=== PATIENT | female | born 1970 | race Caucasian/White ===

== ENCOUNTER 2020-03-08 12:58 | Emergency (ER) | payer OTHER ==
[2020-03-08 13:05] VITALS: TEMP 97.8
[2020-03-08] MEDS ORDERED: ONDANSETRON 4 MG/2 ML VIAL IVP STA ×2 (13:41→15:12)
[2020-03-08] MEDS ORDERED: SODIUM CHLORIDE 0.9% 500 ML 500 ML IV STA (13:41)
[2020-03-08] MEDS ORDERED: SODIUM CHLORIDE 0.9% 1,000 ML IV STA (13:41)
--- NOTE | 2020-03-08 14:21 | ED ---
Abdominal Pain HPI - General Chief Complaint: Abdominal Pain Stated Complaint: abd pain, vomiting Time Seen by Provider: 03/08/20 13:16 Source: patient, RN notes reviewed Mode of arrival: ambulatory Limitations: no limitations - History of Present Illness Initial Comments: 49-year-old female presents emergency Department chief complaint abdominal pain started this morning. Patient states the pain does wax and wane she complains of diffuse abdominal pain with severe nausea vomiting. She states that she's had no bowel movements and diarrhea constipation or melena hematochezia and no dysuria no hematuria. She states she hasn't chills no known fever. Denies any chest pain or shortness breath. She's had prior abdominal hernia repair no other abdominal surgeries. Patient has a flank pain. Denies any trauma. No sick contacts. - Related Data Home Medications Medication Instructions Recorded Confirmed Albuterol Inhaler [Ventolin Hfa 1 - 2 puff INHALATION RT-Q4H PRN 03/08/20 03/08/20 Inhaler] Losartan/Hydrochlorothiazide 1 tab PO DAILY 03/08/20 03/08/20 [Losartan-Hctz 100-25 mg Tab] Metoprolol Tartrate [Lopressor] 25 mg PO DAILY 03/08/20 03/08/20 Previous Rx's Medication Instructions Recorded Amoxicillin/Potassium Clav 1 tab PO Q12HR #20 tab 03/08/20 [Augmentin 875-125 Tablet] Docusate [Colace] 100 mg PO BID #14 capsule 03/08/20 Ondansetron Odt [Zofran Odt] 4 mg PO Q8HR PRN #10 tab 03/08/20 Allergies Allergy/AdvReac Type Severity Reaction Status Date / Time bacitracin AdvReac Unknown Verified 03/08/20 15:05 [From Triple Antibiotic] neomycin AdvReac Unknown Verified 03/08/20 15:05 [From Triple Antibiotic] polymyxin B AdvReac Unknown Verified 03/08/20 15:05 [From Triple Antibiotic] sulfamethoxazole AdvReac Nausea & Verified 03/08/20 15:05 [From Bactrim] Vomiting trimethoprim [From Bactrim] AdvReac Nausea & Verified 03/08/20 15:05 Vomiting Review of Systems ROS Statement: Those systems with pertinent positive or pertinent negative responses have been documented in the HPI. ROS Other: All systems not noted in ROS Statement are negative. Past Medical History Past Medical History: Hypertension History of Any Multi-Drug Resistant Organisms: None Reported Past Surgical History: Hernia Repair Past Psychological History: No Psychological Hx Reported Smoking Status: Current every day smoker Past Alcohol Use History: Occasional Past Drug Use History: None Reported General Exam Limitations: no limitations General appearance: alert, in no apparent distress Head exam: Present: atraumatic, normocephalic, normal inspection ENT exam: Present: normal exam, normal oropharynx, mucous membranes moist Neck exam: Present: normal inspection. Absent: tenderness, meningismus, lymphadenopathy Respiratory exam: Present: normal lung sounds bilaterally. Absent: respiratory distress, wheezes, rales, rhonchi, stridor Cardiovascular Exam: Present: normal rhythm, tachycardia, normal heart sounds. Absent: systolic murmur, diastolic murmur, rubs, gallop, clicks GI/Abdominal exam: Present: soft, tenderness, normal bowel sounds. Absent: distended, guarding, rebound, rigid Back exam: Absent: CVA tenderness (R), CVA tenderness (L) Neurological exam: Present: alert, oriented X3, CN II-XII intact Skin exam: Present: warm, dry, intact, normal color. Absent: rash Course Vital Signs 03/08/20 03/08/20 03/08/20 13:00 13:04 14:04 Temperature 97.8 F Pulse Rate 110 H 71 Respiratory 18 20 20 Rate Blood Pressure 156/78 153/103 O2 Sat by Pulse 98 98 Oximetry 03/08/20 03/08/20 15:00 16:00 Temperature Pulse Rate 71 69 Respiratory 20 20 Rate Blood Pressure 134/83 O2 Sat by Pulse 98 98 Oximetry Medical Decision Making - Medical Decision Making 49-year-old female presented for abdominal pain nausea vomiting. Labs are unremarkable urinalysis unremarkable. CT shows some evidence of colitis was started on Augmentin. Patient was started on stool softeners for constipation and she is advised that she needs to have a colonoscopy as she has some narrowing of her sigmoid colon. Patient and family in room understand. Return parameters were discussed. - Lab Data Result diagrams: 03/08/20 13:25 03/08/20 13:25 Lab Results 03/08/20 03/08/20 03/08/20 Range/Units 13:25 13:25 13:25 WBC 8.4 (3.8-10.6) k/uL RBC 3.98 (3.80-5.40) m/uL Hgb 14.0 (11.4-16.0) gm/dL Hct 41.9 (34.0-46.0) % MCV 105.4 H (80.0-100.0) fL MCH 35.2 H (25.0-35.0) pg MCHC 33.4 (31.0-37.0) g/dL RDW 12.4 (11.5-15.5) % Plt Count 274 (150-450) k/uL Neutrophils % 85 % Lymphocytes % 8 % Monocytes % 6 % Eosinophils % 1 % Basophils % 0 % Neutrophils # 7.1 (1.3-7.7) k/uL Lymphocytes # 0.6 L (1.0-4.8) k/uL Monocytes # 0.5 (0-1.0) k/uL Eosinophils # 0.1 (0-0.7) k/uL Basophils # 0.0 (0-0.2) k/uL Macrocytosis Slight Sodium 136 L (137-145) mmol/L Potassium 3.7 (3.5-5.1) mmol/L Chloride 97 L (98-107) mmol/L Carbon Dioxide 27 (22-30) mmol/L Anion Gap 12 mmol/L BUN 16 (7-17) mg/dL Creatinine 0.67 (0.52-1.04) mg/dL Est GFR (CKD-EPI)AfAm >90 (>60 ml/min/1.73 sqM) Est GFR (CKD-EPI)NonAf >90 (>60 ml/min/1.73 sqM) Glucose 113 H (74-99) mg/dL Plasma Lactic Acid Evens (0.7-2.0) mmol/L Calcium 9.9 (8.4-10.2) mg/dL Total Bilirubin 1.0 (0.2-1.3) mg/dL AST 84 H (14-36) U/L ALT 52 H (4-34) U/L Alkaline Phosphatase 80 (38-126) U/L Total Protein 8.4 H (6.3-8.2) g/dL Albumin 4.8 (3.5-5.0) g/dL Amylase 69 (30-110) U/L Lipase 73 (23-300) U/L Urine Color Yellow Urine Appearance Cloudy H (Clear) Urine pH 5.0 (5.0-8.0) Ur Specific [place] 1.012 (1.001-1.035) Urine Protein Negative (Negative) Urine Glucose (UA) Negative (Negative) Urine Ketones 1+ H (Negative) Urine Blood Negative (Negative) Urine Nitrite Negative (Negative) Urine Bilirubin Negative (Negative) Urine Urobilinogen <2.0 (<2.0) mg/dL Ur Leukocyte Esterase Negative (Negative) Urine RBC <1 (0-5) /hpf Urine WBC 1 (0-5) /hpf Ur Squamous Epith Cells 3 (0-4) /hpf Urine Bacteria Rare H (None) /hpf Hyaline Casts 19 H (0-2) /lpf Urine Mucus Rare H (None) /hpf 03/08/20 Range/Units 13:25 WBC (3.8-10.6) k/uL RBC (3.80-5.40) m/uL Hgb (11.4-16.0) gm/dL Hct (34.0-46.0) % MCV (80.0-100.0) fL MCH (25.0-35.0) pg MCHC (31.0-37.0) g/dL RDW (11.5-15.5) % Plt Count (150-450) k/uL Neutrophils % % Lymphocytes % % Monocytes % % Eosinophils % % Basophils % % Neutrophils # (1.3-7.7) k/uL Lymphocytes # (1.0-4.8) k/uL Monocytes # (0-1.0) k/uL Eosinophils # (0-0.7) k/uL Basophils # (0-0.2) k/uL Macrocytosis Sodium (137-145) mmol/L Potassium (3.5-5.1) mmol/L Chloride (98-107) mmol/L Carbon Dioxide (22-30) mmol/L Anion Gap mmol/L BUN (7-17) mg/dL Creatinine (0.52-1.04) mg/dL Est GFR (CKD-EPI)AfAm (>60 ml/min/1.73 sqM) Est GFR (CKD-EPI)NonAf (>60 ml/min/1.73 sqM) Glucose (74-99) mg/dL Plasma Lactic Acid Evens 1.4 (0.7-2.0) mmol/L Calcium (8.4-10.2) mg/dL Total Bilirubin (0.2-1.3) mg/dL AST (14-36) U/L ALT (4-34) U/L Alkaline Phosphatase (38-126) U/L Total Protein (6.3-8.2) g/dL Albumin (3.5-5.0) g/dL Amylase (30-110) U/L Lipase (23-300) U/L Urine Color Urine Appearance (Clear) Urine pH (5.0-8.0) Ur Specific [place] (1.001-1.035) Urine Protein (Negative) Urine Glucose (UA) (Negative) Urine Ketones (Negative) Urine Blood (Negative) Urine Nitrite (Negative) Urine Bilirubin (Negative) Urine Urobilinogen (<2.0) mg/dL Ur Leukocyte Esterase (Negative) Urine RBC (0-5) /hpf Urine WBC (0-5) /hpf Ur Squamous Epith Cells (0-4) /hpf Urine Bacteria (None) /hpf Hyaline Casts (0-2) /lpf Urine Mucus (None) /hpf Disposition Clinical Impression: Colitis, Constipation Disposition: HOME SELF-CARE Condition: Stable Instructions (If sedation given, give patient instructions): Colitis (ED) Additional Instructions: Please follow-up for colonoscopy.Please return to the Emergency Department if symptoms worsen or any other concerns. Prescriptions: Amoxicillin/Potassium Clav [Augmentin 875-125 Tablet] 1 tab PO Q12HR #20 tab Docusate [Colace] 100 mg PO BID #14 capsule Ondansetron Odt [Zofran Odt] 4 mg PO Q8HR PRN #10 tab PRN Reason: Nausea Is patient prescribed a controlled substance at d/c from ED?: No Referrals: Mireille Chan DO [Primary Care Provider] - 1-2 days Jenny Yang MD [STAFF PHYSICIAN] - 1-2 days Jairon Alves MD [STAFF PHYSICIAN] - 1-2 days Time of Disposition: 16:22
--- NOTE | 2020-03-08 14:44 | CT ---
EXAMINATION TYPE: CT abdomen pelvis w con DATE OF EXAM: 03/08/2020 COMPARISON: None HISTORY: Generalized abdominal pain with cramping and nausea, vomiting. CT DLP: 819.8 mGycm Automated exposure control for dose reduction was used. TECHNIQUE: Helical acquisition of images from the lung bases through the pelvis have been completed. CONTRAST: Performed without Oral Contrast and with IV Contrast, patient injected with 100 mL of Isovue 300. FINDINGS: LUNG BASES: No significant abnormality is appreciated. AORTA: No significant abnormality is appreciated. LIVER/GB: The liver shows low attenuation consistent with hepatic gallbladder is normal.. PANCREAS: No significant abnormality is seen. SPLEEN: No significant abnormality is seen. ADRENALS: No significant abnormality is seen. KIDNEYS: No significant abnormality is seen. REPRODUCTIVE ORGANS: No significant abnormality is seen BOWEL: There is retained fecal debris throughout the distribution of the colon. Caliber change is pr esent along the sigmoid colon which is more narrow distal to this point, axial image #70, coronal geo ge #83. Scattered diverticular changes present associated with the colon. Suspect some colonic wall t hickening especially in the descending colon. FREE AIR: No Free Air visible. ASCITES: None visible. PELVIC ADENOPATHY: None visualized. RETROPERITONEAL ADENOPATHY: No Retroperitoneal Adenopathy visible. URINARY BLADDER: No significant abnormality is seen. OSSEOUS STRUCTURES: Degenerative disc changes are present in the visualized spine.. IMPRESSION: CORRELATE FOR COLITIS, THERE IS DIVERTICULOSIS, POSSIBLE FECAL STASIS, CALIBER CHANGE IN THE SIGMOID COLON IS INDETERMINATE, CONSIDER BOWEL SURVEILLANCE IF THIS HAS NOT BEEN PERFORMED. PROBABLE HEPATIC STEATOSIS. LIVER IS AT THE UPPER LIMIT OF NORMAL FOR SIZE.
[2020-03-08 15:01] VITALS: RESP 20
[2020-03-08 15:09] LABS: Basophils % (A) 0 %; Eosinophils # (A) 0.1 k/uL (0-0.7); Eosinophils % (A) 1 %; HCT 41.9 % (34.0-46.0); Lymphocytes # (A) 0.6 k/uL (1.0-4.8); Lymphocytes % (A) 8 %; MCH 35.2 pg (25.0-35.0); MCHC 33.4 g/dL (31.0-37.0); MCV 105.4 fL (80.0-100.0); Macrocytosis Slight; Mean Platelet Volume 8.1; Monocytes # (A) 0.5 k/uL (0-1.0); Monocytes % (A) 6 %; Neutrophils # (A) 7.1 k/uL (1.3-7.7); Neutrophils % (A) 85 %; Platelet Count 274 k/uL (150-450); RBC 3.98 m/uL (3.80-5.40); RDW 12.4 % (11.5-15.5); WBC 8.4 k/uL (3.8-10.6)
[2020-03-08] MEDS ORDERED: HYDROmorphone 0.5 MG/0.5 ML SYRINGE IVP STA (15:12)
[2020-03-08 15:14] LABS: Appearance,Urine Cloudy (Clear); Bacteria,Urine Rare /hpf; Bilirubin,Urine Negative (Negative); Blood,Urine Negative (Negative); Color,Urine Yellow; Glucose,Urine (UA) Negative (Negative); Hyaline Casts,Urine 19 /lpf (0-2); Ketones,Urine 1+ (Negative); Leukocyte Esterase,Urine Negative (Negative); Mucus,Urine Rare /hpf; Nitrite,Urine Negative (Negative); Protein,Urine Negative (Negative); RBC,Urine <1 /hpf (0-5); Specific Gravity,Urine 1.012 (1.001-1.035); Squamous Epithelial Cell,Urine 3 /hpf (0-4); Urobilinogen,Urine <2.0 mg/dL (<2.0); WBC,Urine 1 /hpf (0-5)
[2020-03-08] MEDS ORDERED: DOCUSATE 283 MG/5 ML ENEMA RECTAL STA (15:27)
[2020-03-08 15:38] LABS: ALT 52 U/L (4-34); AST 84 U/L (14-36); African American GFR (CKD) >90 (>60 ml/min/1.73 sqM); Albumin 4.8 g/dL (3.5-5.0); Alkaline Phosphatase 80 U/L (38-126); Amylase 69 U/L (30-110); Anion Gap 12 mmol/L; Blood Urea Nitrogen 16 mg/dL (7-17); Calcium 9.9 mg/dL (8.4-10.2); Carbon Dioxide 27 mmol/L (22-30); Chloride 97 mmol/L (98-107); Glucose 113 mg/dL (74-99); Non-African American GFR(CKD) >90 (>60 ml/min/1.73 sqM); Sodium 136 mmol/L (137-145); Total Protein 8.4 g/dL (6.3-8.2)
[2020-03-08 15:41] LABS: Potassium 3.7 mmol/L (3.5-5.1)
[2020-03-08 16:35] VITALS: BP 133/94; PULSE 73
== END 2020-03-08 16:38 | disposition home or self-care (01) ==
LOC: EC 12:58
DX: K52.9 Noninfective gastroenteritis and colitis, unspecified (principal); K59.00 Constipation, unspecified; I10 Essential (primary) hypertension; F17.200 Nicotine dependence, unspecified, uncomplicated; Z79.899 Other long term (current) drug therapy; Z88.1 Allergy status to other antibiotic agents; Z88.2 Allergy status to sulfonamides
CPT/HCPCS: 36415; 80053; 82150; 83605; 83690; 85025; 81001; 74177; 99284; 96374; 96375; 96376; 96361; J2405; J1170; Q9967

== ENCOUNTER 2020-03-09 15:15 | Inpatient (IN) | payer OTHER ==
[2020-03-09] MEDS ORDERED: HYDROmorphone 0.5 MG/0.5 ML SYRINGE IVP STA ×2 (15:40→17:20)
[2020-03-09] MEDS ORDERED: SODIUM CHLORIDE 0.9% 1,000 ML IV STA ×2 (15:40→20:16)
[2020-03-09] MEDS ORDERED: PANTOPRAZOLE 40 MG/10 ML VIAL IVP STA (15:40)
[2020-03-09] MEDS ORDERED: DICYCLOMINE 10 MG/ML 2 ML AMP IM STA (15:40)
[2020-03-09] MEDS ORDERED: ONDANSETRON 4 MG/2 ML VIAL IVP STA (15:40)
[2020-03-09] MEDS ORDERED: LACTULOSE 20 GM/30 ML CUP PO ONE (15:52)
--- NOTE | 2020-03-09 15:52 | ED ---
Abdominal Pain HPI - General Source: patient Mode of arrival: wheelchair Limitations: no limitations <Tony Hernandez - Last Filed: 03/09/20 20:40> <Yeimi Oneal - Last Filed: 03/15/20 01:24> - General Chief Complaint: Abdominal Pain Stated Complaint: Abd pain Time Seen by Provider: 03/09/20 15:19 - History of Present Illness Initial Comments: Patient is a 49-year-old female presenting to the emergency department with a chief complaint of abdominal pain. Patient states she was in emergency department yesterday and diagnosed with colitis and constipation. Patient reports she was discharged but continued to have nausea, vomiting. States she had a very small bowel movement yesterday but nothing today. States she feels constipated and slightly bloated. Reports diffuse abdominal pain, mostly localized near the umbilical region. Patient denies any night sweats fevers or chills. States she does have history of constipation and uses stool softeners intermittently. She denies chest pain or shortness of breath. She denies vaginal or urinary symptoms. Denies hematuria, hematochezia or melena. (Tony Hernandez) - Related Data Home Medications Medication Instructions Recorded Confirmed Albuterol Inhaler [Ventolin Hfa 1 - 2 puff INHALATION RT-Q4H PRN 03/08/20 03/09/20 Inhaler] Losartan/Hydrochlorothiazide 1 tab PO DAILY 03/08/20 03/09/20 [Losartan-Hctz 100-25 mg Tab] Metoprolol Tartrate [Lopressor] 25 mg PO DAILY 03/08/20 03/09/20 Previous Rx's Medication Instructions Recorded Amoxicillin/Potassium Clav 1 tab PO Q12HR #20 tab 03/08/20 [Augmentin 875-125 Tablet] Docusate [Colace] 100 mg PO BID #14 capsule 03/08/20 Ondansetron Odt [Zofran Odt] 4 mg PO Q8HR PRN #10 tab 03/08/20 Allergies Allergy/AdvReac Type Severity Reaction Status Date / Time bacitracin AdvReac Unknown Verified 03/09/20 19:12 [From Triple Antibiotic] neomycin AdvReac Unknown Verified 03/09/20 19:12 [From Triple Antibiotic] polymyxin B AdvReac Unknown Verified 03/09/20 19:12 [From Triple Antibiotic] sulfamethoxazole AdvReac Nausea & Verified 03/09/20 19:12 [From Bactrim] Vomiting trimethoprim [From Bactrim] AdvReac Nausea & Verified 03/09/20 19:12 Vomiting Review of Systems ROS Other: All systems not noted in ROS Statement are negative. <Tony Hernandez - Last Filed: 03/09/20 20:40> ROS Other: All systems not noted in ROS Statement are negative. <Yeimi Oneal - Last Filed: 03/15/20 01:24> ROS Statement: Those systems with pertinent positive or pertinent negative responses have been documented in the HPI. Past Medical History Past Medical History: Hypertension History of Any Multi-Drug Resistant Organisms: None Reported Past Surgical History: Hernia Repair Past Psychological History: No Psychological Hx Reported Smoking Status: Current every day smoker Past Alcohol Use History: Occasional Past Drug Use History: None Reported <Tony Hernandez - Last Filed: 03/09/20 20:40> General Exam Limitations: no limitations General appearance: alert, in no apparent distress Head exam: Present: atraumatic, normocephalic, normal inspection Eye exam: Present: normal appearance, PERRL, EOMI Pupils: Present: normal accommodation ENT exam: Present: normal exam, normal oropharynx, mucous membranes moist Neck exam: Present: normal inspection, full ROM Respiratory exam: Present: normal lung sounds bilaterally. Absent: respiratory distress, wheezes Cardiovascular Exam: Present: regular rate, normal rhythm, normal heart sounds GI/Abdominal exam: Present: soft, tenderness (Diffuse abdominal tenderness). Absent: distended, guarding, rebound, rigid Extremities exam: Present: normal inspection, full ROM Back exam: Present: normal inspection, full ROM. Absent: tenderness, CVA tenderness (R), CVA tenderness (L) Neurological exam: Present: alert, oriented X3 Psychiatric exam: Present: normal affect, normal mood Skin exam: Present: warm, dry, intact, normal color <Tony Hernandez - Last Filed: 03/09/20 20:40> Course Vital Signs 03/09/20 03/09/20 15:16 20:11 Temperature 97.4 F L 98.4 F Pulse Rate 94 78 Respiratory 18 16 Rate Blood Pressure 143/101 150/92 O2 Sat by Pulse 97 95 Oximetry Medical Decision Making - Lab Data Result diagrams: 03/09/20 15:50 03/09/20 15:50 <Tony Hernandez - Last Filed: 03/09/20 20:40> - Lab Data Result diagrams: 03/13/20 06:04 03/14/20 05:36 <Yeimi Oneal - Last Filed: 03/15/20 01:24> - Medical Decision Making Patient is a 49-year-old female presenting to emergency Department with a chief complaint of nausea vomiting abdominal pain. On exam patient has diffuse abdominal pain. Negative McBurney and Rodriguez sign. Patient had received a CT of abdomen and pelvis yesterday that revealed colitis and and constipation. Patient was given lactulose and milk and molasses enema in the emergency department but patient is still not able to have a BM. Patient was given Dilaudid with some improvement in symptoms. Patient was given Zofran, fluids and antispasmodic medication. Reevaluation patient reports continuous vomiting. Patient was given Benadryl and Reglan. On reevaluation patient reports only small improvement in nausea. States the pain is returning. Patient was given a secondary dose of Dilaudid. CBC unremarkable. CMP shows elevated BUN and UA shows +1 ketones suggesting dehydration. Patient was given fluids in the ED.. Challenge failed. Patient will be admitted for further medical management. Case discussed with Admitting physician is Dr Everardo ROBERTS on consult (Tony Hernandez) I was available for consultation in the emergency department. The history and physical exam were done by the midlevel provider. I was consulted for this patients care. I reviewed the case with the midlevel provider and based on their presentation of the patient, I agree with the assessment, medical decision making and plan of care as documented. Chart was dictated using [employer] dictation software. Attempts were made to correct any dictation errors however some typographical errors may persist. Patient was seen during a national state of emergency due to the Covid-19 pandemic. (Yeimi Oneal) - Lab Data Lab Results 03/09/20 03/09/20 03/09/20 Range/Units 15:50 15:50 19:50 WBC 8.0 (3.8-10.6) k/uL RBC 3.95 (3.80-5.40) m/uL Hgb 14.5 (11.4-16.0) gm/dL Hct 41.7 (34.0-46.0) % MCV 105.6 H (80.0-100.0) fL MCH 36.8 H (25.0-35.0) pg MCHC 34.8 (31.0-37.0) g/dL RDW 12.4 (11.5-15.5) % Plt Count 259 (150-450) k/uL Neutrophils % (Manual) 81 % Band Neutrophils % 4 % Lymphocytes % (Manual) 2 % Monocytes % (Manual) 12 % Eosinophils % (Manual) 1 % Neutrophils # (Manual) (1.3-7.7) k/uL Lymphocytes # (Manual) (1.0-4.8) k/uL Monocytes # (Manual) (0-1.0) k/uL Eosinophils # (Manual) (0-0.7) k/uL Nucleated RBCs 0 (0-0) /100 WBC Manual Slide Review Macrocytosis Slight Stomatocytes Present Sodium 131 L (137-145) mmol/L Potassium 3.6 (3.5-5.1) mmol/L Chloride 91 L (98-107) mmol/L Carbon Dioxide 32 H (22-30) mmol/L Anion Gap 8 mmol/L BUN 23 H (7-17) mg/dL Creatinine 0.54 (0.52-1.04) mg/dL Est GFR (CKD-EPI)AfAm >90 (>60 ml/min/1.73 sqM) Est GFR (CKD-EPI)NonAf >90 (>60 ml/min/1.73 sqM) Glucose 163 H (74-99) mg/dL Calcium 9.5 (8.4-10.2) mg/dL Magnesium (1.6-2.3) mg/dL Total Bilirubin 1.0 (0.2-1.3) mg/dL AST 44 H (14-36) U/L ALT 35 H (4-34) U/L Alkaline Phosphatase 92 (38-126) U/L Total Protein 7.5 (6.3-8.2) g/dL Albumin 4.6 (3.5-5.0) g/dL Lipase 27 (23-300) U/L Urine Color Yellow Urine Appearance Cloudy H (Clear) Urine pH 6.0 (5.0-8.0) Ur Specific [place] 1.031 (1.001-1.035) Urine Protein 1+ H (Negative) Urine Glucose (UA) Negative (Negative) Urine Ketones 1+ H (Negative) Urine Blood Negative (Negative) Urine Nitrite Negative (Negative) Urine Bilirubin 1+ H (Negative) Urine Urobilinogen 4.0 (<2.0) mg/dL Ur Leukocyte Esterase Negative (Negative) Urine RBC <1 (0-5) /hpf Urine WBC 1 (0-5) /hpf Ur Squamous Epith Cells 10 H (0-4) /hpf Urine Bacteria Rare H (None) /hpf Urine Mucus Occasional H (None) /hpf Coronavirus (PCR) (Not Detected) 03/09/20 03/10/20 03/11/20 Range/Units 21:16 10:04 05:29 WBC 4.8 (3.8-10.6) k/uL RBC 3.28 L (3.80-5.40) m/uL Hgb 12.2 (11.4-16.0) gm/dL Hct 35.9 (34.0-46.0) % MCV 109.4 H (80.0-100.0) fL MCH 37.3 H (25.0-35.0) pg MCHC 34.1 (31.0-37.0) g/dL RDW 12.4 (11.5-15.5) % Plt Count 184 (150-450) k/uL Neutrophils % (Manual) 45 % Band Neutrophils % 26 % Lymphocytes % (Manual) 13 % Monocytes % (Manual) 15 % Eosinophils % (Manual) 1 % Neutrophils # (Manual) 3.40 (1.3-7.7) k/uL Lymphocytes # (Manual) 0.62 L (1.0-4.8) k/uL Monocytes # (Manual) 0.72 (0-1.0) k/uL Eosinophils # (Manual) 0.05 (0-0.7) k/uL Nucleated RBCs 0 (0-0) /100 WBC Manual Slide Review Performed Macrocytosis Moderate Stomatocytes Sodium 132 L (137-145) mmol/L Potassium 3.8 (3.5-5.1) mmol/L Chloride 96 L (98-107) mmol/L Carbon Dioxide 32 H (22-30) mmol/L Anion Gap 4 mmol/L BUN 17 (7-17) mg/dL Creatinine 0.55 (0.52-1.04) mg/dL Est GFR (CKD-EPI)AfAm >90 (>60 ml/min/1.73 sqM) Est GFR (CKD-EPI)NonAf >90 (>60 ml/min/1.73 sqM) Glucose 113 H (74-99) mg/dL Calcium 8.2 L (8.4-10.2) mg/dL Magnesium (1.6-2.3) mg/dL Total Bilirubin 0.7 (0.2-1.3) mg/dL AST 29 (14-36) U/L ALT 23 (4-34) U/L Alkaline Phosphatase 66 (38-126) U/L Total Protein 5.8 L (6.3-8.2) g/dL Albumin 3.3 L (3.5-5.0) g/dL Lipase (23-300) U/L Urine Color Urine Appearance (Clear) Urine pH (5.0-8.0) Ur Specific [place] (1.001-1.035) Urine Protein (Negative) Urine Glucose (UA) (Negative) Urine Ketones (Negative) Urine Blood (Negative) Urine Nitrite (Negative) Urine Bilirubin (Negative) Urine Urobilinogen (<2.0) mg/dL Ur Leukocyte Esterase (Negative) Urine RBC (0-5) /hpf Urine WBC (0-5) /hpf Ur Squamous Epith Cells (0-4) /hpf Urine Bacteria (None) /hpf Urine Mucus (None) /hpf Coronavirus (PCR) Not Detected (Not Detected) 03/11/20 03/11/20 Range/Units 05:29 05:29 WBC (3.8-10.6) k/uL RBC (3.80-5.40) m/uL Hgb (11.4-16.0) gm/dL Hct (34.0-46.0) % MCV (80.0-100.0) fL MCH (25.0-35.0) pg MCHC (31.0-37.0) g/dL RDW (11.5-15.5) % Plt Count (150-450) k/uL Neutrophils % (Manual) % Band Neutrophils % % Lymphocytes % (Manual) % Monocytes % (Manual) % Eosinophils % (Manual) % Neutrophils # (Manual) (1.3-7.7) k/uL Lymphocytes # (Manual) (1.0-4.8) k/uL Monocytes # (Manual) (0-1.0) k/uL Eosinophils # (Manual) (0-0.7) k/uL Nucleated RBCs (0-0) /100 WBC Manual Slide Review Macrocytosis Stomatocytes Sodium 130 L (137-145) mmol/L Potassium 3.3 L (3.5-5.1) mmol/L Chloride 97 L (98-107) mmol/L Carbon Dioxide 29 (22-30) mmol/L Anion Gap 4 mmol/L BUN 11 (7-17) mg/dL Creatinine 0.47 L (0.52-1.04) mg/dL Est GFR (CKD-EPI)AfAm >90 (>60 ml/min/1.73 sqM) Est GFR (CKD-EPI)NonAf >90 (>60 ml/min/1.73 sqM) Glucose 97 (74-99) mg/dL Calcium 8.1 L (8.4-10.2) mg/dL Magnesium 2.4 H (1.6-2.3) mg/dL Total Bilirubin 0.4 (0.2-1.3) mg/dL AST 28 (14-36) U/L ALT 21 (4-34) U/L Alkaline Phosphatase 73 (38-126) U/L Total Protein 5.3 L (6.3-8.2) g/dL Albumin 2.8 L (3.5-5.0) g/dL Lipase (23-300) U/L Urine Color Urine Appearance (Clear) Urine pH (5.0-8.0) Ur Specific [place] (1.001-1.035) Urine Protein (Negative) Urine Glucose (UA) (Negative) Urine Ketones (Negative) Urine Blood (Negative) Urine Nitrite (Negative) Urine Bilirubin (Negative) Urine Urobilinogen (<2.0) mg/dL Ur Leukocyte Esterase (Negative) Urine RBC (0-5) /hpf Urine WBC (0-5) /hpf Ur Squamous Epith Cells (0-4) /hpf Urine Bacteria (None) /hpf Urine Mucus (None) /hpf Coronavirus (PCR) (Not Detected) Disposition Is patient prescribed a controlled substance at d/c from ED?: No Time of Disposition: 20:45 <Tony Hernandez - Last Filed: 03/09/20 20:40> <Yeimi Oneal - Last Filed: 03/15/20 01:24> Clinical Impression: Nausea & vomiting, Abdominal pain, Colitis, Constipation Disposition: ADMITTED IP TO THIS HOSP Condition: Stable
[2020-03-09 16:19] LABS: ALT 35 U/L (4-34); AST 44 U/L (14-36); African American GFR (CKD) >90 (>60 ml/min/1.73 sqM); Albumin 4.6 g/dL (3.5-5.0); Alkaline Phosphatase 92 U/L (38-126); Anion Gap 8 mmol/L; Blood Urea Nitrogen 23 mg/dL (7-17); Calcium 9.5 mg/dL (8.4-10.2); Carbon Dioxide 32 mmol/L (22-30); Chloride 91 mmol/L (98-107); Glucose 163 mg/dL (74-99); Non-African American GFR(CKD) >90 (>60 ml/min/1.73 sqM); Potassium 3.6 mmol/L (3.5-5.1); Sodium 131 mmol/L (137-145); Total Protein 7.5 g/dL (6.3-8.2)
[2020-03-09 16:30] LABS: HCT 41.7 % (34.0-46.0); HGB 14.5 gm/dL (11.4-16.0); MCH 36.8 pg (25.0-35.0); MCHC 34.8 g/dL (31.0-37.0); MCV 105.6 fL (80.0-100.0); Macrocytosis Slight; Mean Platelet Volume 7.8; Platelet Count 259 k/uL (150-450); RBC 3.95 m/uL (3.80-5.40); RDW 12.4 % (11.5-15.5)
[2020-03-09 16:50] LABS: Band Neutrophils % 4 %; Neutrophils % (M) 81 %; Nucleated Red Blood Cells 0 /100 WBC (0-0); Stomatocytes Present; Total Cells Counted 100
[2020-03-09] MEDS ORDERED: diphenhydrAMINE 50 MG/ML 1 ML VIAL IVP STA (17:12)
[2020-03-09] MEDS ORDERED: METOCLOPRAMIDE 5 MG/ML 2 ML VIAL IVP STA (17:12)
[2020-03-09 20:03] LABS: Appearance,Urine Cloudy (Clear); Bacteria,Urine Rare /hpf; Bilirubin,Urine 1+ (Negative); Blood,Urine Negative (Negative); Color,Urine Yellow; Glucose,Urine (UA) Negative (Negative); Ketones,Urine 1+ (Negative); Leukocyte Esterase,Urine Negative (Negative); Mucus,Urine Occasional /hpf; Nitrite,Urine Negative (Negative); Protein,Urine 1+ (Negative); RBC,Urine <1 /hpf (0-5); Specific Gravity,Urine 1.031 (1.001-1.035); Squamous Epithelial Cell,Urine 10 /hpf (0-4); WBC,Urine 1 /hpf (0-5)
[2020-03-09] MEDS ORDERED: MORPHINE SULFATE 4 MG/ML SYRINGE IV PRN (20:32)
[2020-03-09] MEDS ORDERED: NALOXONE 0.4 MG/ML 1 ML VIAL IV PRN (20:32)
[2020-03-09] MEDS: ONDANSETRON 4 MG/2 ML VIAL IVP PRN (21:13)
[2020-03-09] MEDS: HYDROmorphone 1 MG/ML 1 ML SYRINGE IVP PRN (22:41)
[2020-03-09] MEDS: SODIUM CHLORIDE 0.9% 1,000 ML IV SCH (22:42)
[2020-03-10] MEDS: HYDROmorphone 1 MG/ML 1 ML SYRINGE IVP PRN ×6 (02:00→20:30)
[2020-03-10] MEDS: SODIUM CHLORIDE 0.9% 1,000 ML IV SCH ×2 (09:56→17:02)
[2020-03-10 10:38] LABS: ALT 23 U/L (4-34); AST 29 U/L (14-36); African American GFR (CKD) >90 (>60 ml/min/1.73 sqM); Albumin 3.3 g/dL (3.5-5.0); Alkaline Phosphatase 66 U/L (38-126); Anion Gap 4 mmol/L; Blood Urea Nitrogen 17 mg/dL (7-17); Calcium 8.2 mg/dL (8.4-10.2); Carbon Dioxide 32 mmol/L (22-30); Chloride 96 mmol/L (98-107); Glucose 113 mg/dL (74-99); Non-African American GFR(CKD) >90 (>60 ml/min/1.73 sqM); Potassium 3.8 mmol/L (3.5-5.1); Sodium 132 mmol/L (137-145); Total Bilirubin 0.7 mg/dL (0.2-1.3); Total Protein 5.8 g/dL (6.3-8.2)
--- NOTE | 2020-03-10 11:57 | XR ---
EXAMINATION TYPE: XR abdomen 2V DATE OF EXAM: 03/10/2020 CLINICAL HISTORY: Pain and constipation. TECHNIQUE: Supine and upright views of the abdomen are obtained. COMPARISON: CT abdomen and pelvis 2 days ago. FINDINGS: Gas is seen in nondistended stomach scattered gas seen in nondistended small bowel loops wi th some paucity. Slightly more prominent gas-filled bowel loop right midabdomen with air-fluid levels noted. Interval improvement in degree of fecal material throughout the colon in the periphery. There is no visceromegaly, pneumoperitoneum, or abnormal calcification appreciated. The lung bases remai n clear and the osseous structures are intact. IMPRESSION: Overall nonspecific but favor nonobstructive bowel gas pattern. Improved colonic fecal s tasis noted. Correlate clinically.
--- NOTE | 2020-03-10 12:07 | P.HPIM ---
History of Present Illness this is a pleasant 49 years old female with past medical history of hypertension. she is a patient of Mireille Littlejohn.she presents because of abdominal pain and nausea vomiting. She came yesterday to emergency room for similar complaint and discharge, she was complaining of from diffuse abdominal pain with severe nausea vomiting associated with constipation. Abdominal pain is in the lower abdomen below the umbilicus, radiating to both sides felt like crampy about 10/10 in severity of 3-4 days duration associated with frequent nausea vomiting for a recheck she eats or drinks. No bowel movement for the last [address] of the abdomen and pelvis with contrast, showing retained fecal debris is throughout the distribution of the colon, with wall thickening suspicious for descending colitis and no distal part of the sigmoid colon, she was treated symptomatically and discharged however she comes today with similar complaints. She smokes about half pack per day, she denies alcohol or illicit drugs. Patient is counseled to quit smoking and she agrees. We'll order nicotine patch vitals are stable and patient is as febrile unremarkable CBC, BMP showing low sodium and 132, creatinine is normal as well as electrolytes. Liver enzymes not elevated. Urinalysis is not suspicious of infection. in the emergency room she received Dilaudid, Bentyl, Protonix, normal saline about 2 L with Zofran, lactulose, Benadryl and Reglan. she is currently on normal saline at 75 L/h GI team was consulted from emergency room. Review of Systems CONSTITUTIONAL: No fever, no malaise, no fatigue. HEENT: No recent visual problems or hearing problems. Denied any sore throat. CARDIOVASCULAR: No orthopnea, PND, no palpitations, no syncope. PULMONARY: No shortness of breath, no cough, no hemoptysis. GASTROINTESTINAL: No diarrhea NEUROLOGICAL: No headaches, no weakness, no numbness. HEMATOLOGICAL: Denies any bleeding or petechiae. GENITOURINARY: Denies any burning micturition, frequency, or urgency. MUSCULOSKELETAL/RHEUMATOLOGICAL: Denies any joint pain, swelling, or any muscle pain. ENDOCRINE: Denies any polyuria or polydipsia. Past Medical History Past Medical History: Hypertension History of Any Multi-Drug Resistant Organisms: None Reported Past Surgical History: Hernia Repair Smoking Status: Current every day smoker - Past Family History Mother Family Medical History: Diabetes Mellitus, Hypertension Additional Family Medical History / Comment(s): Neropathy Medications and Allergies Home Medications Medication Instructions Recorded Confirmed Type Albuterol Inhaler [Ventolin Hfa 1 - 2 puff INHALATION RT-Q4H PRN 03/08/20 03/09/20 History Inhaler] Amoxicillin/Potassium Clav 1 tab PO Q12HR #20 tab 03/08/20 03/09/20 Rx [Augmentin 875-125 Tablet] Docusate [Colace] 100 mg PO BID #14 capsule 03/08/20 03/09/20 Rx Losartan/Hydrochlorothiazide 1 tab PO DAILY 03/08/20 03/09/20 History [Losartan-Hctz 100-25 mg Tab] Metoprolol Tartrate [Lopressor] 25 mg PO DAILY 03/08/20 03/09/20 History Ondansetron Odt [Zofran Odt] 4 mg PO Q8HR PRN #10 tab 03/08/20 03/09/20 Rx Allergies Allergy/AdvReac Type Severity Reaction Status Date / Time bacitracin AdvReac Unknown Verified 03/09/20 19:12 [From Triple Antibiotic] neomycin AdvReac Unknown Verified 03/09/20 19:12 [From Triple Antibiotic] polymyxin B AdvReac Unknown Verified 03/09/20 19:12 [From Triple Antibiotic] sulfamethoxazole AdvReac Nausea & Verified 03/09/20 19:12 [From Bactrim] Vomiting trimethoprim [From Bactrim] AdvReac Nausea & Verified 03/09/20 19:12 Vomiting Physical Exam Vitals: Vital Signs Temp Pulse Pulse Resp BP BP BP 03/10/20 08:23 98.6 F 91 20 114/73 03/09/20 23:00 98.9 F 86 18 138/87 03/09/20 22:13 99 F 88 18 158/103 03/09/20 20:11 98.4 F 78 16 150/92 03/09/20 15:16 97.4 F L 94 18 143/101 Pulse Ox 03/10/20 08:23 96 03/09/20 23:00 94 L 03/09/20 22:13 93 L 03/09/20 20:11 95 03/09/20 15:16 97 Intake and Output 03/09/20 03/10/20 03/10/20 22:59 06:59 14:59 Other: # Voids 2 2 Weight 74.3 kg GENERAL: The patient is alert and oriented x3, not in any acute distress. Well developed, well nourished. HEENT: Pupils are round and equally reacting to light. EOMI. No scleral icterus. No conjunctival pallor. Normocephalic, atraumatic. No pharyngeal erythema. No thyromegaly. CARDIOVASCULAR: S1 and S2 present. No murmurs, rubs, or gallops. PULMONARY: Chest is clear to auscultation, no wheezing or crackles. -ABDOMEN: Soft, below the umbilicus tenderness with no rebound tenderness or guarding, nondistended, normoactive bowel sounds. No palpable organomegaly. MUSCULOSKELETAL: No joint swelling or deformity. EXTREMITIES: No cyanosis, clubbing, or pedal edema. NEUROLOGICAL: Gross neurological examination did not reveal any focal deficits. SKIN: No rashes. No petechiae Results CBC & Chem 7: 03/09/20 15:50 03/10/20 10:04 Labs: Abnormal Lab Results - Last 24 Hours (Table) 03/09/20 03/09/20 03/09/20 Range/Units 15:50 15:50 19:50 MCV 105.6 H (80.0-100.0) fL MCH 36.8 H (25.0-35.0) pg Sodium 131 L (137-145) mmol/L Chloride 91 L (98-107) mmol/L Carbon Dioxide 32 H (22-30) mmol/L BUN 23 H (7-17) mg/dL Glucose 163 H (74-99) mg/dL Calcium (8.4-10.2) mg/dL AST 44 H (14-36) U/L ALT 35 H (4-34) U/L Total Protein (6.3-8.2) g/dL Albumin (3.5-5.0) g/dL Urine Appearance Cloudy H (Clear) Urine Protein 1+ H (Negative) Urine Ketones 1+ H (Negative) Urine Bilirubin 1+ H (Negative) Ur Squamous Epith Cells 10 H (0-4) /hpf Urine Bacteria Rare H (None) /hpf Urine Mucus Occasional H (None) /hpf 03/10/20 Range/Units 10:04 MCV (80.0-100.0) fL MCH (25.0-35.0) pg Sodium 132 L (137-145) mmol/L Chloride 96 L (98-107) mmol/L Carbon Dioxide 32 H (22-30) mmol/L BUN (7-17) mg/dL Glucose 113 H (74-99) mg/dL Calcium 8.2 L (8.4-10.2) mg/dL AST (14-36) U/L ALT (4-34) U/L Total Protein 5.8 L (6.3-8.2) g/dL Albumin 3.3 L (3.5-5.0) g/dL Urine Appearance (Clear) Urine Protein (Negative) Urine Ketones (Negative) Urine Bilirubin (Negative) Ur Squamous Epith Cells (0-4) /hpf Urine Bacteria (None) /hpf Urine Mucus (None) /hpf Thrombosis Risk Factor Assmnt - Choose All That Apply Each Factor Represents 1 point: Age 41-60 years Thrombosis Risk Factor Assessment Total Risk Factor Score: 1 Thrombosis Risk Factor Assessment Level: Low Risk Assessment and Plan Assessment: acute descending colitis with CAT scan of the abdomen showing no distal colon severe nausea vomiting secondary to above. Associated with abdominal pain and constipation. Rule out obstruction Dehydration Essential hypertension Plan: this is a pleasant 49 years old female who presents with colitis. Continue with hydration,Continue with antiemetics. Pain management. Continue with GI service recommendation. Consult surgery Labs and medication were reviewed.. Continue same treatment. Continue with symptomatic treatment. Resume home medication. Monitor lytes and vitals. DVT and GI prophylaxis. Further recommendations of the clinical course of the patient DVT prophylaxis: Subcutaneous heparin GI Prophylaxis: Ppi Prognosis is guarded
[2020-03-10] MEDS: HEPARIN SODIUM,PORCINE 5,000 UNIT/ML 1 ML VIAL SQ SCH ×2 (12:28→21:25)
[2020-03-10] MEDS: PANTOPRAZOLE 40 MG/10 ML VIAL IVP SCH (12:28)
--- NOTE | 2020-03-10 12:57 | P.GSCN ---
History of Present Illness Consult date: 03/10/20 Reason for Consult: Abdominal pain History of present illness: This a 49-year-old female who is admitted to the medical service. Patient had c omplaints of abdominal pain. Patient recent CAT scan which shows evidence of some mild colitis and constipation. Patient has some complaints of nausea and vomiting. She's had several bowel movements prior to admission. Patient states her pain feels better today. Her most recent x-ray shows evidence of a nonobstructive pattern with fecal stasis. Past Medical History Past Medical History: Hypertension History of Any Multi-Drug Resistant Organisms: None Reported Past Surgical History: Hernia Repair Smoking Status: Current every day smoker - Past Family History Mother Family Medical History: Diabetes Mellitus, Hypertension Additional Family Medical History / Comment(s): Neropathy Medications and Allergies Home Medications Medication Instructions Recorded Confirmed Type Albuterol Inhaler [Ventolin Hfa 1 - 2 puff INHALATION RT-Q4H PRN 03/08/20 03/09/20 History Inhaler] Amoxicillin/Potassium Clav 1 tab PO Q12HR #20 tab 03/08/20 03/09/20 Rx [Augmentin 875-125 Tablet] Docusate [Colace] 100 mg PO BID #14 capsule 03/08/20 03/09/20 Rx Losartan/Hydrochlorothiazide 1 tab PO DAILY 03/08/20 03/09/20 History [Losartan-Hctz 100-25 mg Tab] Metoprolol Tartrate [Lopressor] 25 mg PO DAILY 03/08/20 03/09/20 History Ondansetron Odt [Zofran Odt] 4 mg PO Q8HR PRN #10 tab 03/08/20 03/09/20 Rx Allergies Allergy/AdvReac Type Severity Reaction Status Date / Time bacitracin AdvReac Unknown Verified 03/09/20 19:12 [From Triple Antibiotic] neomycin AdvReac Unknown Verified 03/09/20 19:12 [From Triple Antibiotic] polymyxin B AdvReac Unknown Verified 03/09/20 19:12 [From Triple Antibiotic] sulfamethoxazole AdvReac Nausea & Verified 03/09/20 19:12 [From Bactrim] Vomiting trimethoprim [From Bactrim] AdvReac Nausea & Verified 03/09/20 19:12 Vomiting Surgical - Exam Vital Signs Temp Pulse Resp BP Pulse Ox 97.4 F L 94 18 143/101 97 06/16/20 15:16 03/09/20 15:16 03/09/20 15:16 03/09/20 15:16 03/09/20 15:16 - General well developed, well nourished, no distress - Eyes PERRL - ENT normal pinna - Neck no masses - Respiratory normal expansion - Cardiovascular Rhythm: regular - Abdomen Abdomen: soft, non tender Results - Labs 03/09/20 15:50 03/10/20 10:04 Abnormal Lab Results - Last 24 Hours (Table) 03/09/20 03/09/20 03/09/20 Range/Units 15:50 15:50 19:50 MCV 105.6 H (80.0-100.0) fL MCH 36.8 H (25.0-35.0) pg Sodium 131 L (137-145) mmol/L Chloride 91 L (98-107) mmol/L Carbon Dioxide 32 H (22-30) mmol/L BUN 23 H (7-17) mg/dL Glucose 163 H (74-99) mg/dL Calcium (8.4-10.2) mg/dL AST 44 H (14-36) U/L ALT 35 H (4-34) U/L Total Protein (6.3-8.2) g/dL Albumin (3.5-5.0) g/dL Urine Appearance Cloudy H (Clear) Urine Protein 1+ H (Negative) Urine Ketones 1+ H (Negative) Urine Bilirubin 1+ H (Negative) Ur Squamous Epith Cells 10 H (0-4) /hpf Urine Bacteria Rare H (None) /hpf Urine Mucus Occasional H (None) /hpf 03/10/20 Range/Units 10:04 MCV (80.0-100.0) fL MCH (25.0-35.0) pg Sodium 132 L (137-145) mmol/L Chloride 96 L (98-107) mmol/L Carbon Dioxide 32 H (22-30) mmol/L BUN (7-17) mg/dL Glucose 113 H (74-99) mg/dL Calcium 8.2 L (8.4-10.2) mg/dL AST (14-36) U/L ALT (4-34) U/L Total Protein 5.8 L (6.3-8.2) g/dL Albumin 3.3 L (3.5-5.0) g/dL Urine Appearance (Clear) Urine Protein (Negative) Urine Ketones (Negative) Urine Bilirubin (Negative) Ur Squamous Epith Cells (0-4) /hpf Urine Bacteria (None) /hpf Urine Mucus (None) /hpf Diabetes panel 03/09/20 03/10/20 Range/Units 15:50 10:04 Sodium 131 L 132 L (137-145) mmol/L Potassium 3.6 3.8 (3.5-5.1) mmol/L Chloride 91 L 96 L (98-107) mmol/L Carbon Dioxide 32 H 32 H (22-30) mmol/L BUN 23 H 17 (7-17) mg/dL Creatinine 0.54 0.55 (0.52-1.04) mg/dL Glucose 163 H 113 H (74-99) mg/dL Calcium 9.5 8.2 L (8.4-10.2) mg/dL AST 44 H 29 (14-36) U/L ALT 35 H 23 (4-34) U/L Alkaline Phosphatase 92 66 (38-126) U/L Total Protein 7.5 5.8 L (6.3-8.2) g/dL Albumin 4.6 3.3 L (3.5-5.0) g/dL Calcium panel 03/09/20 03/10/20 Range/Units 15:50 10:04 Calcium 9.5 8.2 L (8.4-10.2) mg/dL Albumin 4.6 3.3 L (3.5-5.0) g/dL Pituitary panel 03/09/20 03/10/20 Range/Units 15:50 10:04 Sodium 131 L 132 L (137-145) mmol/L Potassium 3.6 3.8 (3.5-5.1) mmol/L Chloride 91 L 96 L (98-107) mmol/L Carbon Dioxide 32 H 32 H (22-30) mmol/L BUN 23 H 17 (7-17) mg/dL Creatinine 0.54 0.55 (0.52-1.04) mg/dL Glucose 163 H 113 H (74-99) mg/dL Calcium 9.5 8.2 L (8.4-10.2) mg/dL Adrenal panel 06/16/20 06/17/20 Range/Units 15:50 10:04 Sodium 131 L 132 L (137-145) mmol/L Potassium 3.6 3.8 (3.5-5.1) mmol/L Chloride 91 L 96 L (98-107) mmol/L Carbon Dioxide 32 H 32 H (22-30) mmol/L BUN 23 H 17 (7-17) mg/dL Creatinine 0.54 0.55 (0.52-1.04) mg/dL Glucose 163 H 113 H (74-99) mg/dL Calcium 9.5 8.2 L (8.4-10.2) mg/dL Total Bilirubin 1.0 0.7 (0.2-1.3) mg/dL AST 44 H 29 (14-36) U/L ALT 35 H 23 (4-34) U/L Alkaline Phosphatase 92 66 (38-126) U/L Total Protein 7.5 5.8 L (6.3-8.2) g/dL Albumin 4.6 3.3 L (3.5-5.0) g/dL Assessment and Plan Assessment: Probable chronic constipation. Patient should have colonoscopy performed as an outpatient. We will follow with you.
[2020-03-10] MEDS: polyethylene glycoL 3350 17 GM POWD.PACK PO SCH ×2 (15:18→17:15)
[2020-03-10] MEDS ORDERED: MAGNESIUM CITRATE 296 ML BOTTLE PO ONE (16:26)
[2020-03-10] MEDS: ONDANSETRON 4 MG/2 ML VIAL IVP PRN (20:21)
[2020-03-10] MEDS: metroNIDAZOLE-NS PMX 500 MG in SALINE 1 100ML.BAG IVPB SCH (21:25)
[2020-03-10] MEDS: ACETAMINOPHEN TAB 325 MG TAB PO PRN (21:31)
[2020-03-11] MEDS: HYDROmorphone 0.5 MG/0.5 ML SYRINGE IVP PRN ×4 (01:22→17:41)
[2020-03-11] MEDS: metroNIDAZOLE-NS PMX 500 MG in SALINE 1 100ML.BAG IVPB SCH ×3 (05:27→21:28)
[2020-03-11] MEDS: SODIUM CHLORIDE 0.9% 1,000 ML IV SCH (05:29)
[2020-03-11] MEDS: ACETAMINOPHEN TAB 325 MG TAB PO PRN (05:30)
[2020-03-11 06:05] LABS: ALT 21 U/L (4-34); AST 28 U/L (14-36); African American GFR (CKD) >90 (>60 ml/min/1.73 sqM); Albumin 2.8 g/dL (3.5-5.0); Alkaline Phosphatase 73 U/L (38-126); Anion Gap 4 mmol/L; Blood Urea Nitrogen 11 mg/dL (7-17); Calcium 8.1 mg/dL (8.4-10.2); Carbon Dioxide 29 mmol/L (22-30); Chloride 97 mmol/L (98-107); Glucose 97 mg/dL (74-99); Non-African American GFR(CKD) >90 (>60 ml/min/1.73 sqM); Potassium 3.3 mmol/L (3.5-5.1); Sodium 130 mmol/L (137-145); Total Bilirubin 0.4 mg/dL (0.2-1.3); Total Protein 5.3 g/dL (6.3-8.2)
[2020-03-11 06:18] LABS: HCT 35.9 % (34.0-46.0); HGB 12.2 gm/dL (11.4-16.0); MCH 37.3 pg (25.0-35.0); MCHC 34.1 g/dL (31.0-37.0); MCV 109.4 fL (80.0-100.0); Macrocytosis Moderate; Mean Platelet Volume 8.4; Platelet Count 184 k/uL (150-450); RBC 3.28 m/uL (3.80-5.40); RDW 12.4 % (11.5-15.5); WBC 4.8 k/uL (3.8-10.6)
[2020-03-11 06:59] LABS: Band Neutrophils % 26 %; Eosinophils # (M) 0.05 k/uL (0-0.7); Lymphocytes # (M) 0.62 k/uL (1.0-4.8); Monocytes # (M) 0.72 k/uL (0-1.0); Neutrophils % (M) 45 %; Nucleated Red Blood Cells 0 /100 WBC (0-0); Total Cells Counted 100
[2020-03-11] MEDS ORDERED: Potassium Replacement Protocol 1 EACH MISC MISCELLANE PRN ×3 (07:50→09:50)
[2020-03-11] MEDS ORDERED: NA PHOS,M-B/NA PHOS,DI-BA 133 ML ENEMA RECTAL ONE ×2 (07:52→07:59)
--- NOTE | 2020-03-11 07:53 | P.PN ---
Progress Note - Text Progress Note Date: 03/11/20 The patient has not had a bowel movement since yesterday. She still has some complaints of some mild abdominal pain. She is requesting to increase her diet. On exam her vital signs are stable. Abdomen soft. Constipation. The patient will be given Fleet enemas 2 today. We will increase her diet once she has bowel function.
[2020-03-11] MEDS: HEPARIN SODIUM,PORCINE 5,000 UNIT/ML 1 ML VIAL SQ SCH ×2 (08:07→21:28)
[2020-03-11] MEDS: POTASSIUM CHLORIDE ER 20 MEQ TAB.ER PO SCH ×2 (08:07→11:21)
[2020-03-11] MEDS: NICOTINE 14MG/24HR PATCH TRANSDERM SCH ×2 (08:08→17:51)
[2020-03-11] MEDS: polyethylene glycoL 3350 17 GM POWD.PACK PO SCH (08:09)
[2020-03-11] MEDS ORDERED: Magnesium Replacement Protocol 1 EACH MISC MISCELLANE PRN (09:50)
--- NOTE | 2020-03-11 09:52 | P.PN ---
Subjective this is a pleasant 49 years old female with past medical history of hypertension. she is a patient of Mireille Littlejohn.she presents because of ab dominal pain and nausea vomiting. She came yesterday to emergency room for similar complaint and discharge, she was complaining of from diffuse abdominal pain with severe nausea vomiting associated with constipation. Abdominal pain is in the lower abdomen below the umbilicus, radiating to both sides felt like crampy about 10/10 in severity of 3-4 days duration associated with frequent nausea vomiting for a recheck she eats or drinks. No bowel movement for the last [address] of the abdomen and pelvis with contrast, showing retained fecal debris is throughout the distribution of the colon, with wall thickening suspicious for descending colitis and no distal part of the sigmoid colon, she was treated symptomatically and discharged however she comes today with similar complaints. She smokes about half pack per day, she denies alcohol or illicit drugs. Patient is counseled to quit smoking and she agrees. We'll order nicotine patch vitals are stable and patient is as febrile unremarkable CBC, BMP showing low sodium and 132, creatinine is normal as well as electrolytes. Liver enzymes not elevated. Urinalysis is not suspicious of infection. in the emergency room she received Dilaudid, Bentyl, Protonix, normal saline about 2 L with Zofran, lactulose, Benadryl and Reglan. she is currently on normal saline at 75 L/h GI team was consulted from emergency room. 03/11/2020 Patient started feeling better with no nausea vomiting, her abdominal pain is going down, she is passing gas but still have no bowel movement. She is tolerating liquid diet and was to keep her. She had a fever last night and patient was started on ceftriaxone and Flagyl also she is on normal sinus 75 mm/h Hemodynamically stable and CBC and BMP unremarkable except for mild low sodium at 1:30 and low potassium at 3.3, replaced Patient is counseled for outpatient colonoscopy , risks including but not limited to cancer is explained, she verbalized understanding and acceptance. Review of Systems CONSTITUTIONAL: No fever, no malaise, no fatigue. HEENT: No recent visual problems or hearing problems. Denied any sore throat. CARDIOVASCULAR: No orthopnea, PND, no palpitations, no syncope. PULMONARY: No shortness of breath, no cough, no hemoptysis. GASTROINTESTINAL: No diarrhea NEUROLOGICAL: No headaches, no weakness, no numbness. HEMATOLOGICAL: Denies any bleeding or petechiae. GENITOURINARY: Denies any burning micturition, frequency, or urgency. MUSCULOSKELETAL/RHEUMATOLOGICAL: Denies any joint pain, swelling, or any muscle pain. ENDOCRINE: Denies any polyuria or polydipsia. Active Medications Generic Name Dose Route Start Last Admin Trade Name Freq PRN Reason Stop Dose Admin Acetaminophen 650 mg 03/09/20 20:32 03/11/20 05:30 Tylenol Tab PO 650 mg Q6HR PRN Administration Mild Pain or Fever > 100.5 Heparin Sodium (Porcine) 5,000 unit 03/10/20 11:00 03/11/20 08:07 Heparin SQ 5,000 unit Q12HR MELISA Administration Hydromorphone HCl 0.5 mg 03/09/20 20:32 03/11/20 06:51 Dilaudid IVP 0.5 mg Q3HR PRN Administration Moderate Pain Hydromorphone HCl 1 mg 03/09/20 20:32 03/10/20 20:30 Dilaudid IVP 1 mg Q3HR PRN Administration Severe Pain Sodium Chloride 1,000 mls @ 75 mls/hr 03/09/20 20:45 03/11/20 05:29 Saline 0.9% IV 75 mls/hr .[id number] MELISA Administration Ceftriaxone Sodium 2 gm/ 50 mls @ 100 mls/hr 03/10/20 20:15 03/10/20 20:30 Sodium Chloride IVPB 100 mls/hr Q24H MELISA Administration Metronidazole 500 mg/ IV 100 mls @ 100 mls/hr 03/10/20 21:00 03/11/20 05:27 Solution IVPB 100 mls/hr Q8H MELISA Administration Lorazepam 0.5 mg 03/09/20 20:32 Ativan IV Q6HR PRN Anxiety Miscellaneous Information 1 each 03/11/20 07:50 Potassium Per Protocol MISCELLANE DAILY PRN Per Protocol Protocol Miscellaneous Information 1 each 03/11/20 07:51 Potassium Per Protocol MISCELLANE DAILY PRN Per Protocol Protocol Morphine Sulfate 4 mg 03/09/20 20:32 Morphine Sulfate (Inj) IV Q4HR PRN Severe Pain Naloxone HCl 0.2 mg 06/16/20 20:32 Narcan IV Q2M PRN Opioid Reversal Nicotine 1 patch 03/11/20 09:00 03/11/20 08:08 Habitrol 14mg/24hr Patch TRANSDERM Not Given DAILY [facility] Ondansetron HCl 4 mg 03/09/20 20:32 03/10/20 20:21 Zofran IVP 4 mg Q8HR PRN Administration Nausea And Vomiting Pantoprazole Sodium 40 mg 03/10/20 11:00 03/10/20 12:28 Protonix IVP 40 mg DAILY MELISA Administration Polyethylene Glycol 17 gm 03/10/20 21:00 03/11/20 08:09 Miralax PO 17 gm BID MELISA Administration Objective - Vital Signs Vital signs: Vital Signs Temp 97.6 F 03/11/20 07:00 Pulse 88 03/11/20 07:00 Resp 20 03/11/20 07:00 BP 156/74 03/11/20 07:00 Pulse Ox 95 03/11/20 07:00 Intake & Output 03/10/20 03/11/20 03/11/20 18:59 06:59 18:59 Intake Total 1900 Balance 1900 Intake: Intake, IV Titration 1250 Amount Sodium Chloride 0.9% 1, 1000 000 ml @ 75 mls/hr IV . [id number] [facility] Rx#:[id number] cefTRIAXone 2 gm In 50 Sodium Chloride 0.9% 50 ml @ 100 mls/hr IVPB Q24H MELISA Rx#:[id number] metroNIDAZOLE-NS PMX 500 200 mg In Saline 1 100ml.bag @ 100 mls/hr IVPB Q8H MELISA Rx#:[id number] Oral 650 Other: Voiding Method Toilet # Voids 2 2 - Exam GENERAL: The patient is alert and oriented x3, not in any acute distress. Well developed, well nourished. HEENT: Pupils are round and equally reacting to light. EOMI. No scleral icterus. No conjunctival pallor. Normocephalic, atraumatic. No pharyngeal erythema. No thyromegaly. CARDIOVASCULAR: S1 and S2 present. No murmurs, rubs, or gallops. PULMONARY: Chest is clear to auscultation, no wheezing or crackles. -ABDOMEN: Soft, below the umbilicus tenderness with no rebound tenderness or guarding, nondistended, normoactive bowel sounds. No palpable organomegaly. MUSCULOSKELETAL: No joint swelling or deformity. EXTREMITIES: No cyanosis, clubbing, or pedal edema. NEUROLOGICAL: Gross neurological examination did not reveal any focal deficits. SKIN: No rashes. No petechiae - Labs CBC & Chem 7: 03/11/20 05:29 03/11/20 05:29 Labs: Abnormal Lab Results - Last 24 Hours (Table) 03/10/20 03/11/20 03/11/20 Range/Units 10:04 05:29 05:29 RBC 3.28 L (3.80-5.40) m/uL MCV 109.4 H (80.0-100.0) fL MCH 37.3 H (25.0-35.0) pg Lymphocytes # (Manual) 0.62 L (1.0-4.8) k/uL Sodium 132 L 130 L (137-145) mmol/L Potassium 3.3 L (3.5-5.1) mmol/L Chloride 96 L 97 L (98-107) mmol/L Carbon Dioxide 32 H (22-30) mmol/L Creatinine 0.47 L (0.52-1.04) mg/dL Glucose 113 H (74-99) mg/dL Calcium 8.2 L 8.1 L (8.4-10.2) mg/dL Total Protein 5.8 L 5.3 L (6.3-8.2) g/dL Albumin 3.3 L 2.8 L (3.5-5.0) g/dL Assessment and Plan Assessment: acute descending colitis with CAT scan of the abdomen showing no distal colon severe nausea vomiting secondary to above. Associated with abdominal pain and constipation. Rule out obstruction Dehydration Essential hypertension Plan: this is a pleasant 49 years old female who presents with colitis. Continue with hydration,Continue with antiemetics. Pain management. Continue with GI service recommendation. Consult surgery. Continue with antibiotics Labs and medication were reviewed.. Continue same treatment. Continue with symptomatic treatment. Resume home medication. Monitor lytes and vitals. DVT and GI prophylaxis. Further recommendations of the clinical course of the patient DVT prophylaxis: Subcutaneous heparin GI Prophylaxis: Ppi Prognosis is guarded
[2020-03-11] MEDS: PANTOPRAZOLE 40 MG/10 ML VIAL IVP SCH (11:03)
--- NOTE | 2020-03-11 11:18 | P.CONS ---
History of Present Illness - Reason for Consult Consult date: 03/10/20 Constipation, abdominal pain Requesting physician: Pepe E Sheet - Chief Complaint Abdominal pain - History of Present Illness 49-year-old female with a past medical history significant for hypertension and chronic constipation who presented to the hospital due to complaints of abdominal pain, nausea and vomiting. Patient reports severe lower abdominal pain described as sharp and cramping in nature. This has been going on over the past few days. She reports associated nausea and vomiting with the episode unable to tolerate her diet. Patient had a computed tomography scan of the hospital performed on prior presentation which showed fecal stasis as well as the possibility of thickening of the descending colon. Patient reports a long history of constipation and is had problems her whole life with it. She reports occasionally she'll require enema therapy as she develops a stool plug. She does report a bowel movement yesterday which was nonbloody. Currently she is feeling somewhat better and tolerating diet. Laboratory evaluation significant for WBC 4.8, hemoglobin 12.2, platlet count 184,000 with normal liver enzymes. Review of Systems REVIEW OF SYSTEMS: CONSTITUTIONAL: Denies any fevers, chills, weight change or fatigue. CARDIOVASCULAR: Denies any chest pain, palpitations high or low blood pressures RESPIRATORY: Denies any shortness of breath, hemoptysis or cough. GENITOURINARY: No dysuria or hematuria. MUSCULOSKELETAL: No weakness reported. SKIN: Denies any new rashes or lesions, jaundice or pallor. PSYCHIATRIC: Denies any depression or anxiety. NEUROLOGY: Denies headache, denies any new focal deficits. EARS/NOSE/THROAT: No recent hearing change, congestion, nasal discharge or sore throat. EYES: No pain in eyes, discharge or change in vision. GASTROINTESTINAL: As per HPI. Past Medical History Past Medical History: Hypertension History of Any Multi-Drug Resistant Organisms: None Reported Past Surgical History: Hernia Repair Smoking Status: Current every day smoker - Past Family History Mother Family Medical History: Diabetes Mellitus, Hypertension Additional Family Medical History / Comment(s): Neropathy Medications and Allergies Home Medications Medication Instructions Recorded Confirmed Type Albuterol Inhaler [Ventolin Hfa 1 - 2 puff INHALATION RT-Q4H PRN 03/08/20 03/09/20 History Inhaler] Amoxicillin/Potassium Clav 1 tab PO Q12HR #20 tab 03/08/20 03/09/20 Rx [Augmentin 875-125 Tablet] Docusate [Colace] 100 mg PO BID #14 capsule 03/08/20 03/09/20 Rx Losartan/Hydrochlorothiazide 1 tab PO DAILY 03/08/20 03/09/20 History [Losartan-Hctz 100-25 mg Tab] Metoprolol Tartrate [Lopressor] 25 mg PO DAILY 03/08/20 03/09/20 History Ondansetron Odt [Zofran Odt] 4 mg PO Q8HR PRN #10 tab 03/08/20 03/09/20 Rx Allergies Allergy/AdvReac Type Severity Reaction Status Date / Time bacitracin AdvReac Unknown Verified 03/09/20 19:12 [From Triple Antibiotic] neomycin AdvReac Unknown Verified 03/09/20 19:12 [From Triple Antibiotic] polymyxin B AdvReac Unknown Verified 03/09/20 19:12 [From Triple Antibiotic] sulfamethoxazole AdvReac Nausea & Verified 03/09/20 19:12 [From Bactrim] Vomiting trimethoprim [From Bactrim] AdvReac Nausea & Verified 03/09/20 19:12 Vomiting Physical Exam Vitals: Vital Signs Temp Pulse Pulse Resp BP BP BP 03/10/20 12:00 100.0 F H 99 20 105/45 03/10/20 08:23 98.6 F 91 20 114/73 03/09/20 23:00 98.9 F 86 18 138/87 03/09/20 22:13 99 F 88 18 158/103 03/09/20 20:11 98.4 F 78 16 150/92 03/09/20 15:16 97.4 F L 94 18 143/101 Pulse Ox 03/10/20 12:00 95 03/10/20 08:23 96 03/09/20 23:00 94 L 03/09/20 22:13 93 L 03/09/20 20:11 95 03/09/20 15:16 97 Intake and Output 03/09/20 03/10/20 03/10/20 22:59 06:59 14:59 Other: # Voids 2 2 Weight 74.3 kg On physical examination, patient appears comfortable in no apparent distress. HEAD: Normocephalic, atraumatic. EYES: No scleral icterus. No conjunctival injection. MOUTH: No lesions, tongue midline. NECK: Trachea midline, no gross abnormalities. CHEST: Clear to auscultation with no wheezing or rhonchi appreciated. HEART: Regular rate and rhythm. ABDOMEN: Soft, mildly tender to palpation. Bowel sounds are positive. No organomegaly. No guarding or rigidity. EXTREMITIES: No pedal edema. SKIN: No rashes, no jaundice. NEUROLOGIC: Alert and oriented x3. No focal deficits. Results CBC & Chem 7: 03/11/20 05:29 03/11/20 05:29 Labs: Abnormal Lab Results - Last 24 Hours (Table) 03/09/20 03/09/20 03/09/20 Range/Units 15:50 15:50 19:50 MCV 105.6 H (80.0-100.0) fL MCH 36.8 H (25.0-35.0) pg Sodium 131 L (137-145) mmol/L Chloride 91 L (98-107) mmol/L Carbon Dioxide 32 H (22-30) mmol/L BUN 23 H (7-17) mg/dL Glucose 163 H (74-99) mg/dL Calcium (8.4-10.2) mg/dL AST 44 H (14-36) U/L ALT 35 H (4-34) U/L Total Protein (6.3-8.2) g/dL Albumin (3.5-5.0) g/dL Urine Appearance Cloudy H (Clear) Urine Protein 1+ H (Negative) Urine Ketones 1+ H (Negative) Urine Bilirubin 1+ H (Negative) Ur Squamous Epith Cells 10 H (0-4) /hpf Urine Bacteria Rare H (None) /hpf Urine Mucus Occasional H (None) /hpf 03/10/20 Range/Units 10:04 MCV (80.0-100.0) fL MCH (25.0-35.0) pg Sodium 132 L (137-145) mmol/L Chloride 96 L (98-107) mmol/L Carbon Dioxide 32 H (22-30) mmol/L BUN (7-17) mg/dL Glucose 113 H (74-99) mg/dL Calcium 8.2 L (8.4-10.2) mg/dL AST (14-36) U/L ALT (4-34) U/L Total Protein 5.8 L (6.3-8.2) g/dL Albumin 3.3 L (3.5-5.0) g/dL Urine Appearance (Clear) Urine Protein (Negative) Urine Ketones (Negative) Urine Bilirubin (Negative) Ur Squamous Epith Cells (0-4) /hpf Urine Bacteria (None) /hpf Urine Mucus (None) /hpf CT scan - abdomen: report reviewed (Computed tomography scan of the abdomen showing fecal stasis and possible wall thickening of the descending colon.) Assessment and Plan (1) Abdominal pain Narrative/Plan: 49-year-old female with a known history of chronic constipation which is undergone endoscopic evaluation in the past presenting with worsening abdominal pain, nausea and vomiting. Patient does report bowel movement yesterday. She has a lifelong history of chronic constipation and occasionally requiring enema therapy due to what she describes as a stool plug. She does not take any regular laxative therapy. Computed tomography scan of the abdomen performed did show significant fecal stasis and possible thickening of the descending colon. Symptoms likely related to her constipation. Current Visit: Yes Status: Acute Code(s): R10.9 - UNSPECIFIED ABDOMINAL PAIN SNOMED Code(s): 62009738 (2) Constipation Current Visit: Yes Status: Acute Code(s): K59.00 - CONSTIPATION, UNSPECIFIED SNOMED Code(s): 56398008 (3) Nausea & vomiting Current Visit: Yes Status: Acute Code(s): R11.2 - NAUSEA WITH VOMITING, UNSPECIFIED SNOMED Code(s): 92678928 Plan: Supportive care Clear liquid diet Soapsuds enema and magnesium citrate ordered Patient will need bowel regimen at home with recommendation to start with MiraLAX twice daily Follow-up after discharge with discussion for possible colonoscopy Surgical service following Thank you for allowing us to participate in the care of the patient
[2020-03-11] MEDS: KETOROLAC 30 MG/ML 1 ML VIAL IVP PRN (12:54)
[2020-03-11] MEDS ORDERED: PEG 3350-NA SULF,BICARB,CL/KCL 4,000 ML BOTTLE PO ONE (14:56)
[2020-03-11] MEDS: ALBUTEROL NEBULIZED 2.5 MG/3 ML INHALATION SCH ×2 (17:24→20:15)
[2020-03-11] MEDS: LORazepam 2 MG/ML INJ IV PRN (21:17)
[2020-03-12] MEDS: KETOROLAC 30 MG/ML 1 ML VIAL IVP PRN ×3 (02:54→16:25)
[2020-03-12] MEDS: metroNIDAZOLE-NS PMX 500 MG in SALINE 1 100ML.BAG IVPB SCH ×3 (05:06→20:59)
[2020-03-12 06:05] LABS: HCT 39.5 % (34.0-46.0); HGB 13.1 gm/dL (11.4-16.0); MCH 36.1 pg (25.0-35.0); MCHC 33.1 g/dL (31.0-37.0); MCV 109.3 fL (80.0-100.0); Macrocytosis Moderate; Mean Platelet Volume 8.6; Platelet Count 187 k/uL (150-450); RBC 3.61 m/uL (3.80-5.40); RDW 12.3 % (11.5-15.5); WBC 4.4 k/uL (3.8-10.6)
[2020-03-12 06:11] LABS: African American GFR (CKD) >90 (>60 ml/min/1.73 sqM); Anion Gap 6 mmol/L; Blood Urea Nitrogen 13 mg/dL (7-17); Calcium 8.3 mg/dL (8.4-10.2); Carbon Dioxide 29 mmol/L (22-30); Chloride 96 mmol/L (98-107); Glucose 90 mg/dL (74-99); Magnesium 2.3 mg/dL (1.6-2.3); Non-African American GFR(CKD) >90 (>60 ml/min/1.73 sqM); Sodium 131 mmol/L (137-145)
[2020-03-12 06:24] LABS: Band Neutrophils % 7 %; Eosinophils # (M) 0.04 k/uL (0-0.7); Lymphocytes # (M) 0.97 k/uL (1.0-4.8); Metamyelocytes # (M) 0.13 k/uL (0); Metamyelocytes % 3 %; Neutrophils % (M) 51 %; Nucleated Red Blood Cells 0 /100 WBC (0-0); Total Cells Counted 200
[2020-03-12 06:28] LABS: Potassium 4.2 mmol/L (3.5-5.1)
--- NOTE | 2020-03-12 06:53 | P.PN ---
Subjective Progress Note Date: 03/11/20 Principal diagnosis: Abdominal pain, constipation Patient is seen lying in bed still reporting bloating and distention. Only a small amount of stool after soapsuds enemas today. Objective - Vital Signs Vital signs: Vital Signs Temp 99.0 F 03/11/20 12:40 Pulse 84 03/11/20 12:40 Resp 16 03/11/20 12:40 BP 118/73 03/11/20 12:40 Pulse Ox 94 L 03/11/20 12:40 Intake & Output 03/10/20 03/11/20 03/11/20 18:59 06:59 18:59 Intake Total 1900 480 Balance 1900 480 Intake: Intake, IV Titration 1250 Amount Sodium Chloride 0.9% 1, 1000 000 ml @ 75 mls/hr IV . [id number] MELISA Rx#:[id number] cefTRIAXone 2 gm In 50 Sodium Chloride 0.9% 50 ml @ 100 mls/hr IVPB Q24H MELISA Rx#:[id number]-NS PMX 500 200 mg In Saline 1 100ml.bag @ 100 mls/hr IVPB Q8H MELISA Rx#:[id number] Oral 650 480 Other: Voiding Method Toilet Toilet # Voids 2 2 1 - Exam On physical examination, patient appears comfortable in no apparent distress. HEAD: Normocephalic, atraumatic. EYES: No scleral icterus. No conjunctival injection. MOUTH: No lesions, tongue midline. NECK: Trachea midline, no gross abnormalities. ABDOMEN: Soft, mildly distended. Bowel sounds are positive. No organomegaly. No guarding or rigidity. EXTREMITIES: No pedal edema. SKIN: No rashes, no jaundice. NEUROLOGIC: Alert and oriented x3. No focal deficits. - Labs CBC & Chem 7: 03/12/20 05:48 03/12/20 05:48 Labs: Abnormal Lab Results - Last 24 Hours (Table) 03/11/20 03/11/20 03/11/20 Range/Units 05:29 05:29 05:29 RBC 3.28 L (3.80-5.40) m/uL MCV 109.4 H (80.0-100.0) fL MCH 37.3 H (25.0-35.0) pg Lymphocytes # (Manual) 0.62 L (1.0-4.8) k/uL Sodium 130 L (137-145) mmol/L Potassium 3.3 L (3.5-5.1) mmol/L Chloride 97 L (98-107) mmol/L Creatinine 0.47 L (0.52-1.04) mg/dL Calcium 8.1 L (8.4-10.2) mg/dL Magnesium 2.4 H (1.6-2.3) mg/dL Total Protein 5.3 L (6.3-8.2) g/dL Albumin 2.8 L (3.5-5.0) g/dL Assessment and Plan (1) Abdominal pain Narrative/Plan: 49-year-old female with a known history of chronic constipation which is undergone endoscopic evaluation in the past presenting with worsening abdominal pain, nausea and vomiting. Patient does report bowel movement yesterday. She has a lifelong history of chronic constipation and occasionally requiring enema therapy due to what she describes as a stool plug. She does not take any regular laxative therapy. Computed tomography scan of the abdomen performed did show significant fecal stasis and possible thickening of the descending colon. Symptoms likely related to her constipation. Current Visit: Yes Status: Acute Code(s): R10.9 - UNSPECIFIED ABDOMINAL PAIN SNOMED Code(s): 57246876 (2) Constipation Current Visit: Yes Status: Acute Code(s): K59.00 - CONSTIPATION, UNSPECIFIED SNOMED Code(s): 93854794 (3) Nausea & vomiting Current Visit: Yes Status: Acute Code(s): R11.2 - NAUSEA WITH VOMITING, UNSPECIFIED SNOMED Code(s): 89986128 Plan: Supportive care Clear liquid diet 4 L of GoLYTELY bowel prep ordered, patient will to take the medication until she has 3-4 bowel movements Patient will need bowel regimen at home with recommendation to start with MiraLAX twice daily Follow-up after discharge with discussion for possible colonoscopy Surgical service following Thank you for allowing us to participate in the care of the patient
[2020-03-12] MEDS: SODIUM CHLORIDE 0.9% 1,000 ML IV SCH ×2 (07:31→20:22)
[2020-03-12] MEDS: ALBUTEROL NEBULIZED 2.5 MG/3 ML INHALATION SCH ×4 (08:23→19:47)
[2020-03-12] MEDS ORDERED: NA PHOS,M-B/NA PHOS,DI-BA 133 ML ENEMA RECTAL ONE (08:36)
[2020-03-12] MEDS: PANTOPRAZOLE 40 MG/10 ML VIAL IVP SCH (08:56)
[2020-03-12] MEDS: HEPARIN SODIUM,PORCINE 5,000 UNIT/ML 1 ML VIAL SQ SCH ×2 (08:56→20:04)
--- NOTE | 2020-03-12 09:03 | XR ---
EXAMINATION TYPE: XR abdomen 2V DATE OF EXAM: 03/12/2020 HISTORY: Pain. Technique: 2 views of the abdomen are submitted. Comparison: None. Findings: There is no convincing evidence of pneumoperitoneum. There is a dilated segment of large bowel within the midabdomen as well as multiple dilated loops of small bowel. Multiple air-fluid levels are seen. Suspect obstruction. No mass effects are noted. No renal calcifications are identified. IMPRESSION: 1. There is a dilated segment of large bowel within the midabdomen as well as multiple dilated loops of small bowel. Multiple air-fluid levels are seen. Suspect obstruction.
[2020-03-12] MEDS: HYDROmorphone 0.5 MG/0.5 ML SYRINGE IVP PRN (10:45)
--- NOTE | 2020-03-12 11:02 | P.PN ---
Subjective Progress Note Date: 03/12/20 Principal diagnosis: Abdominal pain Patient evaluated today on coverage. Still having bloating and abdominal pain. Had one smaller firm stool after GoLYTELY was started. Remains distended. Some cramps. Patient's labs noted. Bandemia has been present although improving today. White blood cell count normal at 4.4. Today's x-rays suggest persistent obstruction. Objective - Vital Signs Vital signs: Vital Signs Temp 98.6 F 03/12/20 07:16 Pulse 69 03/12/20 07:16 Resp 16 03/12/20 07:16 BP 154/88 03/12/20 07:16 Pulse Ox 96 03/12/20 07:16 Intake & Output 03/11/20 03/12/20 03/12/20 18:59 06:59 18:59 Intake Total 1340 1260 220 Balance 1340 1260 220 Intake: Oral 1340 1260 220 Other: Voiding Method Toilet Toilet # Voids 1 2 1 # Bowel Movements 1 - Exam Abdomen: Soft, mild to moderate distention, mild diffuse tenderness - Labs CBC & Chem 7: 03/12/20 05:48 03/12/20 05:48 Labs: Abnormal Lab Results - Last 24 Hours (Table) 03/12/20 03/12/20 Range/Units 05:48 05:48 RBC 3.61 L (3.80-5.40) m/uL MCV 109.3 H (80.0-100.0) fL MCH 36.1 H (25.0-35.0) pg Lymphocytes # (Manual) 0.97 L (1.0-4.8) k/uL Metamyelocytes # (Man) 0.13 H (0) k/uL Sodium 131 L (137-145) mmol/L Chloride 96 L (98-107) mmol/L Creatinine 0.49 L (0.52-1.04) mg/dL Calcium 8.3 L (8.4-10.2) mg/dL Assessment and Plan (1) Abdominal pain Narrative/Plan: 49-year-old female with CAT scan findings and history/physical worrisome for colonic obstruction. Obtain unprepped Gastrografin enema today. Further plans pending that study. Current Visit: Yes Status: Acute Code(s): R10.9 - UNSPECIFIED ABDOMINAL PAIN SNOMED Code(s): 58922809
--- NOTE | 2020-03-12 13:13 | FL ---
EXAMINATION TYPE: FL barium enema DATE OF EXAM: 03/12/2020 CLINICAL HISTORY: Rule out obstruction at sigmoid no barium please TECHNIQUE: A single contrast barium enema study is performed.5 min 1 sec fl time. 1000ml isovue 370. COMPARISON: None. FINDINGS: There is luminal narrowing mid to distal sigmoid colon estimated at approximately 50%. This may be the result of stricture from prior diverticular disease. Direct visualization however is selwyn mmended to exclude underlying lesion. The remainder of the colon is of normal caliber. Scattered intr acolonic debris noted. No evidence for inflammatory bowel disease. IMPRESSION: There is luminal narrowing mid to distal sigmoid colon estimated at approximately 50%. T his may be the result of stricture from prior diverticular disease. Direct visualization however is r ecommended to exclude underlying lesion.
[2020-03-12] MEDS: NICOTINE 14MG/24HR PATCH TRANSDERM SCH (16:37)
--- NOTE | 2020-03-12 20:33 | P.PN ---
Subjective Progress Note Date: 03/12/20 Principal diagnosis: Abdominal pain, constipation Attempt to see the patient, however she was undergoing barium enema. Will follow up tomorrow. Case discussed with the surgical service after imaging study was resulted with findings of luminal narrowing of the sigmoid colon. At this time we'll continue conservative management with likely plan for endoscopic evaluation with the surgical service with timing to be determined. Objective - Vital Signs Vital signs: Vital Signs Temp 99.2 F 03/12/20 12:33 Pulse 68 03/12/20 12:33 Resp 16 03/12/20 12:33 BP 147/79 03/12/20 12:33 Pulse Ox 94 L 03/12/20 12:33 Intake & Output 03/11/20 03/12/20 03/12/20 18:59 06:59 18:59 Intake Total 1340 1260 460 Balance 1340 1260 460 Intake: Oral 1340 1260 460 Other: Voiding Method Toilet Toilet # Voids 1 2 1 # Bowel Movements 1 - Labs CBC & Chem 7: 03/12/20 05:48 03/12/20 05:48 Labs: Abnormal Lab Results - Last 24 Hours (Table) 03/12/20 03/12/20 Range/Units 05:48 05:48 RBC 3.61 L (3.80-5.40) m/uL MCV 109.3 H (80.0-100.0) fL MCH 36.1 H (25.0-35.0) pg Lymphocytes # (Manual) 0.97 L (1.0-4.8) k/uL Metamyelocytes # (Man) 0.13 H (0) k/uL Sodium 131 L (137-145) mmol/L Chloride 96 L (98-107) mmol/L Creatinine 0.49 L (0.52-1.04) mg/dL Calcium 8.3 L (8.4-10.2) mg/dL Assessment and Plan (1) Abdominal pain Current Visit: Yes Status: Acute Code(s): R10.9 - UNSPECIFIED ABDOMINAL PAIN SNOMED Code(s): 55245818 (2) Constipation Current Visit: Yes Status: Acute Code(s): K59.00 - CONSTIPATION, UNSPECIFIED SNOMED Code(s): 95112880 (3) Nausea & vomiting Current Visit: Yes Status: Acute Code(s): R11.2 - NAUSEA WITH VOMITING, UNSPECIFIED SNOMED Code(s): 78758727
[2020-03-12] MEDS: LORazepam 2 MG/ML INJ IV PRN ×2 (20:58→21:07)
[2020-03-12] MEDS: ACETAMINOPHEN TAB 325 MG TAB PO PRN (22:09)
[2020-03-12] MEDS: LOSARTAN 50 MG TAB PO SCH (22:10)
[2020-03-12] MEDS ORDERED: diphenhydrAMINE 25 MG CAP PO ONE (23:00)
--- NOTE | 2020-03-13 02:02 | P.PN ---
Subjective this is a pleasant 49 years old female with past medical history of hypertension. she is a patient of Mireille Littlejohn.she presents because of ab dominal pain and nausea vomiting. She came yesterday to emergency room for similar complaint and discharge, she was complaining of from diffuse abdominal pain with severe nausea vomiting associated with constipation. Abdominal pain is in the lower abdomen below the umbilicus, radiating to both sides felt like crampy about 10/10 in severity of 3-4 days duration associated with frequent nausea vomiting for a recheck she eats or drinks. No bowel movement for the last [address] of the abdomen and pelvis with contrast, showing retained fecal debris is throughout the distribution of the colon, with wall thickening suspicious for descending colitis and no distal part of the sigmoid colon, she was treated symptomatically and discharged however she comes today with similar complaints. She smokes about half pack per day, she denies alcohol or illicit drugs. Patient is counseled to quit smoking and she agrees. We'll order nicotine patch vitals are stable and patient is as febrile unremarkable CBC, BMP showing low sodium and 132, creatinine is normal as well as electrolytes. Liver enzymes not elevated. Urinalysis is not suspicious of infection. in the emergency room she received Dilaudid, Bentyl, Protonix, normal saline about 2 L with Zofran, lactulose, Benadryl and Reglan. she is currently on normal saline at 75 L/h GI team was consulted from emergency room. 03/11/2020 Patient started feeling better with no nausea vomiting, her abdominal pain is going down, she is passing gas but still have no bowel movement. She is tolerating liquid diet and was to keep her. She had a fever last night and patient was started on ceftriaxone and Flagyl also she is on normal sinus 75 mm/h Hemodynamically stable and CBC and BMP unremarkable except for mild low sodium at 1:30 and low potassium at 3.3, replaced Patient is counseled for outpatient colonoscopy , risks including but not limited to cancer is explained, she verbalized understanding and acceptance. 03/12/2020 Patient is alert and awake. Her symptoms eventually improvement however in the morning there was suspicion patient might need surgery however barium enema showed significant stricture and GI and surgery team recommended colonoscopy for now by surgery team at certain points. With the treatment of enema and GoLYTELY patient had significant several bowel movements including heart and loose stool. Patient feels much better and her abdomen is soft in the afternoon Patient remains on antibiotics. No more fever and white cell count is normal. Review of Systems CONSTITUTIONAL: No fever, no malaise, no fatigue. HEENT: No recent visual problems or hearing problems. Denied any sore throat. CARDIOVASCULAR: No orthopnea, PND, no palpitations, no syncope. PULMONARY: No shortness of breath, no cough, no hemoptysis. GASTROINTESTINAL: No diarrhea NEUROLOGICAL: No headaches, no weakness, no numbness. HEMATOLOGICAL: Denies any bleeding or petechiae. GENITOURINARY: Denies any burning micturition, frequency, or urgency. MUSCULOSKELETAL/RHEUMATOLOGICAL: Denies any joint pain, swelling, or any muscle pain. ENDOCRINE: Denies any polyuria or polydipsia. Active Medications Generic Name Dose Route Start Last Admin Trade Name Freq PRN Reason Stop Dose Admin Acetaminophen 650 mg 03/09/20 20:32 03/12/20 22:09 Tylenol Tab PO 650 mg Q6HR PRN Administration Mild Pain or Fever > 100.5 Albuterol Sulfate 2.5 mg 03/11/20 17:07 03/12/20 19:47 Ventolin Nebulized INHALATION Not Given RT-QID MELISA Heparin Sodium (Porcine) 5,000 unit 03/10/20 11:00 03/12/20 20:04 Heparin SQ 5,000 unit Q12HR MELISA Administration Hydromorphone HCl 0.5 mg 03/09/20 20:32 03/12/20 10:45 Dilaudid IVP 0.5 mg Q3HR PRN Administration Moderate Pain Hydromorphone HCl 1 mg 03/09/20 20:32 03/10/20 20:30 Dilaudid IVP 1 mg Q3HR PRN Administration Severe Pain Sodium Chloride 1,000 mls @ 75 mls/hr 03/09/20 20:45 03/12/20 20:22 Saline 0.9% IV 75 mls/hr .[id number] MELISA Administration Ceftriaxone Sodium 2 gm/ 50 mls @ 100 mls/hr 03/10/20 20:15 03/12/20 19:55 Sodium Chloride IVPB 100 mls/hr Q24H MELISA Administration Metronidazole 500 mg/ IV 100 mls @ 100 mls/hr 03/10/20 21:00 03/12/20 20:59 Solution IVPB 100 mls/hr Q8H MELISA Administration Ketorolac Tromethamine 15 mg 03/11/20 11:26 03/12/20 16:25 Toradol IVP 03/15/20 11:26 15 mg Q6HR PRN Administration Pain Losartan Potassium 100 mg 03/12/20 22:00 03/12/20 22:10 Cozaar PO 100 mg DAILY MELISA Administration Miscellaneous Information 1 each 03/11/20 07:50 Potassium Per Protocol MISCELLANE DAILY PRN Per Protocol Protocol Miscellaneous Information 1 each 03/11/20 07:51 Potassium Per Protocol MISCELLANE DAILY PRN Per Protocol Protocol Miscellaneous Information 1 each 03/11/20 09:50 Potassium Per Protocol MISCELLANE DAILY PRN Per Protocol Protocol Miscellaneous Information 1 each 03/11/20 09:50 Magnesium Per Protocol MISCELLANE DAILY PRN Per Protocol Protocol Morphine Sulfate 4 mg 03/09/20 20:32 Morphine Sulfate (Inj) IV Q4HR PRN Severe Pain Naloxone HCl 0.2 mg 03/09/20 20:32 Narcan IV Q2M PRN Opioid Reversal Nicotine 1 patch 03/11/20 09:00 03/12/20 16:37 Habitrol 14mg/24hr Patch TRANSDERM 1 patch DAILY MELISA Administration Ondansetron HCl 4 mg 03/09/20 20:32 03/10/20 20:21 Zofran IVP 4 mg Q8HR PRN Administration Nausea And Vomiting Pantoprazole Sodium 40 mg 03/10/20 11:00 03/12/20 08:56 Protonix IVP 40 mg DAILY MELISA Administration Objective - Vital Signs Vital signs: Vital Signs Temp 98.7 F 03/12/20 22:00 Pulse 65 03/12/20 22:00 Resp 16 03/12/20 22:00 BP 166/91 03/12/20 22:00 Pulse Ox 98 03/12/20 22:00 Intake & Output 03/12/20 03/12/20 03/13/20 06:59 18:59 06:59 Intake Total 1260 1140 Balance 1260 1140 Intake: Oral 1260 1140 Other: Voiding Method Toilet # Voids 2 1 2 # Bowel Movements 1 - Exam GENERAL: The patient is alert and oriented x3, not in any acute distress. Well developed, well nourished. HEENT: Pupils are round and equally reacting to light. EOMI. No scleral icterus. No conjunctival pallor. Normocephalic, atraumatic. No pharyngeal erythema. No thyromegaly. CARDIOVASCULAR: S1 and S2 present. No murmurs, rubs, or gallops. PULMONARY: Chest is clear to auscultation, no wheezing or crackles. -ABDOMEN: Soft, below the umbilicus tenderness with no rebound tenderness or guarding, nondistended, normoactive bowel sounds. No palpable organomegaly. MUSCULOSKELETAL: No joint swelling or deformity. EXTREMITIES: No cyanosis, clubbing, or pedal edema. NEUROLOGICAL: Gross neurological examination did not reveal any focal deficits. SKIN: No rashes. No petechiae - Labs CBC & Chem 7: 03/12/20 05:48 03/12/20 05:48 Labs: Abnormal Lab Results - Last 24 Hours (Table) 03/12/20 03/12/20 03/12/20 Range/Units 05:48 05:48 10:00 RBC 3.61 L (3.80-5.40) m/uL MCV 109.3 H (80.0-100.0) fL MCH 36.1 H (25.0-35.0) pg Lymphocytes # (Manual) 0.97 L (1.0-4.8) k/uL Metamyelocytes # (Man) 0.13 H (0) k/uL Sodium 131 L (137-145) mmol/L Chloride 96 L (98-107) mmol/L Creatinine 0.49 L (0.52-1.04) mg/dL Calcium 8.3 L (8.4-10.2) mg/dL Stool Lactoferrin POSITIVE H (NEGATIVE) Microbiology - Last 24 Hours (Table) 03/12/20 10:00 Stool Culture - Preliminary Stool Assessment and Plan Assessment: acute descending colitis with CAT scan of the abdomen showing no distal colon severe nausea vomiting secondary to above. Associated with abdominal pain and constipation. Rule out obstruction Dehydration Essential hypertension Plan: this is a pleasant 49 years old female who presents with colitis. Continue with hydration,Continue with antiemetics. Pain management. Continue with GI service recommendation. Consult surgery. Continue with antibiotics Labs and medication were reviewed.. Continue same treatment. Continue with symptomatic treatment. Resume home medication. Monitor lytes and vitals. DVT and GI prophylaxis. Further recommendations of the clinical course of the patient DVT prophylaxis: Subcutaneous heparin GI Prophylaxis: Ppi Prognosis is guarded
[2020-03-13] MEDS: ACETAMINOPHEN TAB 325 MG TAB PO PRN ×2 (05:32→23:40)
[2020-03-13] MEDS: metroNIDAZOLE-NS PMX 500 MG in SALINE 1 100ML.BAG IVPB SCH ×3 (05:33→21:47)
[2020-03-13 06:27] LABS: HGB 12.6 gm/dL (11.4-16.0); MCH 36.9 pg (25.0-35.0); MCV 108.6 fL (80.0-100.0); Macrocytosis Moderate; Mean Platelet Volume 8.4; Platelet Count 197 k/uL (150-450); RBC 3.41 m/uL (3.80-5.40); RDW 12.6 % (11.5-15.5); WBC 4.3 k/uL (3.8-10.6)
[2020-03-13 06:35] LABS: African American GFR (CKD) >90 (>60 ml/min/1.73 sqM); Anion Gap 6 mmol/L; Blood Urea Nitrogen 10 mg/dL (7-17); Calcium 8.2 mg/dL (8.4-10.2); Carbon Dioxide 29 mmol/L (22-30); Chloride 100 mmol/L (98-107); Glucose 96 mg/dL (74-99); Non-African American GFR(CKD) >90 (>60 ml/min/1.73 sqM); Potassium 3.1 mmol/L (3.5-5.1); Sodium 135 mmol/L (137-145)
[2020-03-13 06:45] LABS: Eosinophils # (M) 0.09 k/uL (0-0.7); Monocytes # (M) 0.82 k/uL (0-1.0); Neutrophils # (M) 2.49 k/uL (1.3-7.7); Neutrophils % (M) 58 %; Nucleated Red Blood Cells 0 /100 WBC (0-0); Total Cells Counted 100
[2020-03-13] MEDS: ALBUTEROL NEBULIZED 2.5 MG/3 ML INHALATION SCH ×4 (08:42→19:25)
[2020-03-13] MEDS: PANTOPRAZOLE 40 MG/10 ML VIAL IVP SCH ×2 (08:53→22:24)
[2020-03-13] MEDS: HEPARIN SODIUM,PORCINE 5,000 UNIT/ML 1 ML VIAL SQ SCH ×2 (08:54→21:47)
[2020-03-13] MEDS: NICOTINE 14MG/24HR PATCH TRANSDERM SCH (12:49)
[2020-03-13] MEDS: LOSARTAN 50 MG TAB PO SCH (12:49)
[2020-03-13] MEDS: SODIUM CHLORIDE 0.9% 1,000 ML IV SCH ×2 (12:52→22:01)
[2020-03-13] MEDS ORDERED: Potassium Replacement Protocol 1 EACH MISC MISCELLANE PRN (13:51)
[2020-03-13] MEDS ORDERED: MAGNESIUM CITRATE 296 ML BOTTLE PO ONE (13:55)
--- NOTE | 2020-03-13 13:56 | P.PN ---
Subjective Progress Note Date: 03/13/20 Principal diagnosis: Abdominal pain Patient doing better today. Feels much less bloated than she did yesterday. Still mild discomfort. She is afebrile. Barium enema yesterday showed colonic stricture. Objective - Vital Signs Vital signs: Vital Signs Temp 98.8 F 03/13/20 12:50 Pulse 64 03/13/20 12:50 Resp 16 03/13/20 12:50 BP 152/90 03/13/20 12:50 Pulse Ox 96 03/13/20 12:50 Intake & Output 03/12/20 03/13/20 03/13/20 18:59 06:59 18:59 Intake Total 1140 720 Balance 1140 720 Intake: Oral 1140 720 Other: Voiding Method Toilet Toilet # Voids 1 2 1 # Bowel Movements 1 1 - Exam Abdomen: Soft, mild distention, minimal tenderness - Labs CBC & Chem 7: 03/13/20 06:04 03/13/20 06:04 Labs: Abnormal Lab Results - Last 24 Hours (Table) 03/12/20 03/13/20 03/13/20 Range/Units 10:00 06:04 06:04 RBC 3.41 L (3.80-5.40) m/uL MCV 108.6 H (80.0-100.0) fL MCH 36.9 H (25.0-35.0) pg Lymphocytes # (Manual) 0.90 L (1.0-4.8) k/uL Sodium 135 L (137-145) mmol/L Potassium 3.1 L (3.5-5.1) mmol/L Creatinine 0.47 L (0.52-1.04) mg/dL Calcium 8.2 L (8.4-10.2) mg/dL Stool Lactoferrin POSITIVE H (NEGATIVE) Microbiology - Last 24 Hours (Table) 03/12/20 10:00 Stool Culture - Preliminary Stool Assessment and Plan (1) Abdominal pain Narrative/Plan: Continue clear liquids. One bottle of magnesium citrate to be taken today. Possible additional prep tomorrow for colonoscopy Sunday. Current Visit: Yes Status: Acute Code(s): R10.9 - UNSPECIFIED ABDOMINAL PAIN SNOMED Code(s): 21954908
[2020-03-13] MEDS: POTASSIUM CHLORIDE ER 20 MEQ TAB.ER PO SCH ×2 (13:58→14:53)
[2020-03-13] MEDS ORDERED: LORazepam 0.5 MG TAB PO PRN (14:14)
--- NOTE | 2020-03-13 16:28 | P.PN ---
Subjective Progress Note Date: 03/13/20 Principal diagnosis: Abdominal pain, constipation Patient stating that abdominal pain is much improved today. Multiple bowel movements after barium enema yesterday. She is tolerating liquids. Objective - Vital Signs Vital signs: Vital Signs Temp 98.7 F 03/13/20 07:47 Pulse 58 L 03/13/20 07:47 Resp 16 03/13/20 07:47 BP 168/77 03/13/20 07:47 Pulse Ox 97 03/13/20 07:47 Intake & Output 03/12/20 03/13/20 03/13/20 18:59 06:59 18:59 Intake Total 1140 240 Balance 1140 240 Intake: Oral 1140 240 Other: Voiding Method Toilet Toilet # Voids 1 2 1 # Bowel Movements 1 1 - Exam On physical examination, patient appears comfortable in no apparent distress. HEAD: Normocephalic, atraumatic. EYES: No scleral icterus. No conjunctival injection. MOUTH: No lesions, tongue midline. NECK: Trachea midline, no gross abnormalities. ABDOMEN: Soft, less distended. Bowel sounds are positive. No organomegaly. No guarding or rigidity. EXTREMITIES: No pedal edema. SKIN: No rashes, no jaundice. NEUROLOGIC: Alert and oriented x3. No focal deficits. - Labs CBC & Chem 7: 03/13/20 06:04 03/13/20 06:04 Labs: Abnormal Lab Results - Last 24 Hours (Table) 03/12/20 03/13/20 03/13/20 Range/Units 10:00 06:04 06:04 RBC 3.41 L (3.80-5.40) m/uL MCV 108.6 H (80.0-100.0) fL MCH 36.9 H (25.0-35.0) pg Lymphocytes # (Manual) 0.90 L (1.0-4.8) k/uL Sodium 135 L (137-145) mmol/L Potassium 3.1 L (3.5-5.1) mmol/L Creatinine 0.47 L (0.52-1.04) mg/dL Calcium 8.2 L (8.4-10.2) mg/dL Stool Lactoferrin POSITIVE H (NEGATIVE) Microbiology - Last 24 Hours (Table) 03/12/20 10:00 Stool Culture - Preliminary Stool Assessment and Plan (1) Abdominal pain Narrative/Plan: 49-year-old female with a known history of chronic constipation which is undergone endoscopic evaluation in the past presenting with worsening abdominal pain, nausea and vomiting. Patient does report bowel movement yesterday. She has a lifelong history of chronic constipation and occasionally requiring enema therapy due to what she describes as a stool plug. She does not take any regular laxative therapy. Computed tomography scan of the abdomen performed did show significant fecal stasis and possible thickening of the descending colon. Barium enema yesterday suggestive of a sigmoid stricture with approximately 50% luminal narrowing. Multiple bowel movements after enema yesterday. Abdominal pain much improved. Current Visit: Yes Status: Acute Code(s): R10.9 - UNSPECIFIED ABDOMINAL PAIN SNOMED Code(s): 27253505 (2) Constipation Current Visit: Yes Status: Acute Code(s): K59.00 - CONSTIPATION, UNSPECIFIED SNOMED Code(s): 58635386 (3) Nausea & vomiting Current Visit: Yes Status: Acute Code(s): R11.2 - NAUSEA WITH VOMITING, UNSPECIFIED SNOMED Code(s): 11338497 Plan: Supportive care Clear liquid diet Surgical service following with plan for endoscopic evaluation on Sunday, we will defer further management to their service Patient advised of the need for a bowel regimen in the outpatient setting after discharge Thank you for allowing us to participate in the care of the patient, the GI service will stand by, please call us back with any questions or concerns
[2020-03-13 16:40] LABS: Magnesium 1.9 mg/dL (1.6-2.3); Potassium 3.5 mmol/L (3.5-5.1)
[2020-03-13] MEDS: METOPROLOL TARTRATE 25 MG TAB PO SCH (17:17)
[2020-03-13] MEDS ORDERED: ALBUTEROL HFA INHALER INHALATION PRN (17:33)
[2020-03-13] MEDS ORDERED: hydrALAZINE HCL 20 MG/ML 1 ML VIAL IVP PRN (17:36)
[2020-03-13] MEDS ORDERED: NON FORMULARY DRUG (Losartan/Hydrochlorothiazide [Losartan-Hctz 100-25 Mg Tab] 1 TAB) PO SCH (17:45)
--- NOTE | 2020-03-13 19:11 | PN ---
PROGRESS NOTE DATE OF SERVICE: 03/13/2020 This 49-year-old woman who was admitted with abdominal pain was found to have acute descending colitis and barium enema was also done which showed luminal narrowing mild to distal sigmoid colon, estimated about 50%. Could be from the stricture from the diverticular disease. Patient also complained of abdominal pain which is felt in the anterior part of the abdomen. Patient being closely monitored. PAST MEDICAL HISTORY: Reviewed. REVIEW OF SYSTEMS: CARDIOVASCULAR SYSTEM: No angina, palpitations. RESPIRATORY SYSTEM: As mentioned earlier. GI no nausea or vomiting. no dysuria. NERVOUS SYSTEM: No numbness or weakness. CURRENT MEDICATIONS: Reviewed and include: 1. Tylenol p.r.n. 2. Ventolin. 3. Rocephin 2 g. 4. Dilaudid. 5. Toradol. 6. Cozaar. 7. Lopressor. 8. Habitrol. 9. Protonix. 10.Doses reviewed. PHYSICAL EXAM: Patient is alert, oriented x3. Pulse is 67. Blood pressure 160/100, respiratory rate 16, temperature 98.4, pulse ox 94% on room air. HEENT: Conjunctivae normal. NECK: No JVD. CARDIOVASCULAR: S1, S2 normal. RESPIRATORY: Breath sounds diminished in the bases. Scattered rhonchi and crackles. ABDOMEN: Soft. Mild diffuse discomfort in the epigastrium. No mass palpable. No guarding. No rigidity. No ascites. Bowel sounds present. LEGS no edema. No swelling. NERVOUS SYSTEM: No focal deficits. LABS: WBC 4.3, hemoglobin 12.6, sodium 130, potassium 3.5. ASSESSMENT: 1. Possible acute abdominal pain with acute descending colitis. 2. Rule out sigmoid stricture secondary from diverticulitis. 3. Dehydration. 4. Hypertension. 5. Abdominal pain with possible acute gastritis. 6. Hyponatremia. 7. Hypokalemia. 8. Increased MCV. RECOMMENDATIONS AND DISCUSSION: This 49-year-old woman who presented with multiple medical issues, at this time, I recommend to continue the current management and treatment. Otherwise at this time I recommend proton pump inhibitors. Closely follow with Dr. Moya who is planning colonoscopy. Prognosis guarded. Further recommendations to follow. MMODL / IJN: [id number] /
[2020-03-13] MEDS: hydrALAZINE HCL 25 MG TAB PO PRN (21:46)
[2020-03-14] MEDS: metroNIDAZOLE-NS PMX 500 MG in SALINE 1 100ML.BAG IVPB SCH ×3 (05:32→21:32)
[2020-03-14 06:50] LABS: African American GFR (CKD) >90 (>60 ml/min/1.73 sqM); Anion Gap 8 mmol/L; Blood Urea Nitrogen 6 mg/dL (7-17); Carbon Dioxide 22 mmol/L (22-30); Chloride 106 mmol/L (98-107); Glucose 78 mg/dL (74-99); Non-African American GFR(CKD) >90 (>60 ml/min/1.73 sqM); Potassium 3.5 mmol/L (3.5-5.1); Sodium 136 mmol/L (137-145)
[2020-03-14] MEDS: ALBUTEROL NEBULIZED 2.5 MG/3 ML INHALATION SCH ×3 (08:03→20:46)
[2020-03-14] MEDS: LOSARTAN 50 MG TAB PO SCH (10:17)
[2020-03-14] MEDS: METOPROLOL TARTRATE 25 MG TAB PO SCH (10:18)
[2020-03-14] MEDS: HEPARIN SODIUM,PORCINE 5,000 UNIT/ML 1 ML VIAL SQ SCH ×2 (10:18→20:57)
[2020-03-14] MEDS: PANTOPRAZOLE 40 MG/10 ML VIAL IVP SCH ×2 (10:18→21:32)
[2020-03-14] MEDS: NICOTINE 14MG/24HR PATCH TRANSDERM SCH (10:18)
[2020-03-14] MEDS ORDERED: PEG 3350-NA SULF,BICARB,CL/KCL 4,000 ML BOTTLE PO ONE (11:17)
--- NOTE | 2020-03-14 11:18 | P.PN ---
Subjective Progress Note Date: 03/14/20 Principal diagnosis: Abdominal pain Patient doing well today. Did have some liquid stools with some cramps last night. No vomiting. T-max 99.1. Stool is loose liquidy Objective - Vital Signs Vital signs: Vital Signs Temp 98.4 F 03/14/20 10:24 Pulse 60 03/14/20 10:38 Resp 16 03/14/20 10:38 BP 168/81 03/14/20 10:24 Pulse Ox 95 03/14/20 10:24 Intake & Output 03/13/20 03/14/20 03/14/20 18:59 06:59 18:59 Intake Total 1700 Balance 1700 Intake: Oral 1700 Other: Voiding Method Toilet Toilet # Voids 1 2 # Bowel Movements 1 - Exam Abdomen: Soft, mild distention, mild tenderness - Labs CBC & Chem 7: 03/13/20 06:04 03/14/20 05:36 Labs: Abnormal Lab Results - Last 24 Hours (Table) 03/14/20 Range/Units 05:36 Sodium 136 L (137-145) mmol/L BUN 6 L (7-17) mg/dL Creatinine 0.43 L (0.52-1.04) mg/dL Calcium 8.0 L (8.4-10.2) mg/dL Assessment and Plan (1) Abdominal pain Narrative/Plan: Patient's liquid stool not quite clean enough for colonoscopy thus far. We'll start GoLYTELY today. Likely will not require a normal dose however. Scheduled for colonoscopy tomorrow. Nothing by mouth after midnight. Current Visit: Yes Status: Acute Code(s): R10.9 - UNSPECIFIED ABDOMINAL PAIN SNOMED Code(s): 17770918
[2020-03-14] MEDS: hydrALAZINE HCL 25 MG TAB PO PRN (21:06)
--- NOTE | 2020-03-15 04:39 | PN ---
PROGRESS NOTE DATE OF SERVICE: 03/14/2020 This 49-year-old woman who was admitted with abdominal pain, was evaluated for rule out sigmoid stricture. Colonoscopy planned by Surgery. No chest pain. No palpitations. No fever. PHYSICAL EXAMINATION: Alert and oriented x3. Pulse 60, blood pressure 154/87, respiration 16, temperature 98.2, pulse ox 96% on room air. HEENT: Conjunctivae normal. NECK: No jugular venous distention. CARDIOVASCULAR: S1, S2 muffled. RESPIRATORY: Breath sounds diminished at the bases. No rhonchi, no crackles. ABDOMEN: Soft. No discomfort. No mass palpable. LEGS: No edema, no swelling. NERVOUS SYSTEM: No focal deficits. LABS: Sodium 136, potassium 3.5. ASSESSMENT: 1. Possible acute abdominal pain with acute descending colitis. 2. Possible sigmoid stricture secondary from diverticulitis. 3. Dehydration, present on admission. 4. Hypertension. 5. Abdominal pain with possible acute gastritis. 6. Hyponatremia. 7. Hypokalemia. 8. Increased MCV. RECOMMENDATIONS AND DISCUSSION: I recommend to continue current medications and symptomatic treatment. Otherwise, repeat labs. Colonoscopy by Surgery. Further recommendations to follow. MMODL / IJN: [id number] /
[2020-03-15] MEDS: metroNIDAZOLE-NS PMX 500 MG in SALINE 1 100ML.BAG IVPB SCH ×3 (05:43→21:06)
[2020-03-15 07:52] LABS: HCT 37.9 % (34.0-46.0); HGB 11.6 gm/dL (11.4-16.0); MCH 33.4 pg (25.0-35.0); MCHC 30.5 g/dL (31.0-37.0); MCV 109.3 fL (80.0-100.0); Macrocytosis Marked; Mean Platelet Volume 8.3; Platelet Count 250 k/uL (150-450); RBC 3.46 m/uL (3.80-5.40); RDW 12.9 % (11.5-15.5); WBC 4.7 k/uL (3.8-10.6)
[2020-03-15 08:00] LABS: ALT 18 U/L (4-34); AST 31 U/L (14-36); African American GFR (CKD) >90 (>60 ml/min/1.73 sqM); Albumin 2.6 g/dL (3.5-5.0); Alkaline Phosphatase 45 U/L (38-126); Anion Gap 8 mmol/L; Blood Urea Nitrogen 4 mg/dL (7-17); Calcium 8.1 mg/dL (8.4-10.2); Carbon Dioxide 23 mmol/L (22-30); Chloride 105 mmol/L (98-107); Glucose 73 mg/dL (74-99); Non-African American GFR(CKD) >90 (>60 ml/min/1.73 sqM); Potassium 3.4 mmol/L (3.5-5.1); Sodium 136 mmol/L (137-145); Total Bilirubin 0.3 mg/dL (0.2-1.3); Total Protein 5.1 g/dL (6.3-8.2)
[2020-03-15] MEDS: ALBUTEROL NEBULIZED 2.5 MG/3 ML INHALATION SCH ×4 (08:08→21:24)
[2020-03-15] MEDS: LOSARTAN 50 MG TAB PO SCH (09:30)
[2020-03-15] MEDS: METOPROLOL TARTRATE 25 MG TAB PO SCH (09:30)
[2020-03-15] MEDS: NICOTINE 14MG/24HR PATCH TRANSDERM SCH (09:31)
[2020-03-15] MEDS: HEPARIN SODIUM,PORCINE 5,000 UNIT/ML 1 ML VIAL SQ SCH ×3 (09:31→22:22)
[2020-03-15] MEDS: PANTOPRAZOLE 40 MG/10 ML VIAL IVP SCH ×2 (09:32→21:07)
[2020-03-15 10:21] LABS: Eosinophils # (M) 0.14 k/uL (0-0.7); Lymphocytes # (M) 1.93 k/uL (1.0-4.8); Monocytes # (M) 0.66 k/uL (0-1.0); Neutrophils # (M) 1.97 k/uL (1.3-7.7); Neutrophils % (M) 42 %; Nucleated Red Blood Cells 0 /100 WBC (0-0); Total Cells Counted 100
[2020-03-15] MEDS ORDERED: KETOROLAC 30 MG/ML 1 ML VIAL IVP PRN (12:18)
[2020-03-15] MEDS ORDERED: PROPOFOL 10 MG/ML 20 ML VIAL IV ONE (15:13)
[2020-03-15] MEDS ORDERED: MIDAZOLAM 2 MG/2 ML VIAL ONE (15:13)
[2020-03-15] MEDS ORDERED: LIDOCAINE 1% INJ 10MG/ML (20 ML MDV) ONE (15:13)
[2020-03-15] MEDS ORDERED: IV FLUID CONTINUATION 1,000 ML IV ONE (15:17)
[2020-03-15] MEDS ORDERED: SODIUM CHLORIDE 0.9% 500 ML IV ONE (15:44)
--- NOTE | 2020-03-15 15:51 | P.OP ---
Date of Procedure: 03/15/20 Preoperative Diagnosis: Colonic stricture Postoperative Diagnosis: Colonic stricture at 45 cm Procedure(s) Performed: Colonoscopy Anesthesia: MAC Surgeon: Jairon Alves Pathology: none sent Condition: stable Disposition: PACU Description of Procedure: The patient's placed on the endoscopy table in the lateral position. She received IV sedation. Digital rectal exam performed which revealed a few external hemorrhoids. Flexible colonoscope was then placed patient anus and passed through to the sigmoid colon at approximately 45 cm gloria there appeared to be evidence of a colonic stricture. This colonoscope could not be advanced. At this point scope was withdrawn. There is evidence of diverticulosis. Scope was then brought back the rectum and this appeared normal. Scope was withdrawn for patient.
--- NOTE | 2020-03-15 16:18 | P.PN ---
Subjective Progress Note Date: 03/15/20 Principal diagnosis: This is a 49-year-old female who was recently admitted with abdominal pain and being evaluated to rule out stricture. Patient underwent colonoscopy with surgery today showing stricture with the inability to advance the colonoscope. There is evidence of diverticulosis noted. Is currently maintained on IV antibiotics and will continue at this time. Patient's diet will be initiated on clear liquids and monitor for advancement and tolerance slowly. Patient's potassium was slightly low at 3.4 and will replace. Will repeat a.m. labs. Review of systems: Constitutional: No reports of fevers or chills Cardiovascular: No reports of chest pain or palpitations Respiratory: No reports of shortness of breath or cough GI: Reports occasional nausea, no reports of vomiting, reports loose stools : No reports of dysuria or retention Neurovascular: No reports of weakness or numbness Active Medications Acetaminophen (Tylenol Tab) 650 mg PO Q6HR PRN PRN Reason: Mild Pain or Fever > 100.5 Last Admin: 03/13/20 23:40 Dose: 650 mg Documented by: Albuterol Sulfate (Ventolin Nebulized) 2.5 mg INHALATION RT-QID [facility] Last Admin: 03/15/20 15:17 Dose: Not Given Documented by: Albuterol Sulfate (Ventolin Hfa Inhaler) 1 - 2 puff INHALATION RT-Q4H PRN PRN Reason: Shortness Of Breath Furosemide (Lasix) 20 mg IV ONCE ONE Stop: 03/15/20 17:01 Heparin Sodium (Porcine) (Heparin) 5,000 unit SQ Q12HR [facility] Last Admin: 03/15/20 09:31 Dose: Not Given Documented by: Hydralazine HCl (Apresoline) 25 mg PO Q8HR PRN PRN Reason: Hypertension Last Admin: 03/14/20 21:06 Dose: 25 mg Documented by: Hydromorphone HCl (Dilaudid) 0.5 mg IVP Q3HR PRN PRN Reason: Moderate Pain Last Admin: 03/12/20 10:45 Dose: 0.5 mg Documented by: Hydromorphone HCl (Dilaudid) 1 mg IVP Q3HR PRN PRN Reason: Severe Pain Last Admin: 03/10/20 20:30 Dose: 1 mg Documented by: Ceftriaxone Sodium 2 gm/ (Sodium Chloride) 50 mls @ 100 mls/hr IVPB Q24H [facility] Last Admin: 03/14/20 20:32 Dose: 100 mls/hr Documented by: Metronidazole 500 mg/ IV (Solution) 100 mls @ 100 mls/hr IVPB Q8H [facility] Last Admin: 03/15/20 12:21 Dose: 100 mls/hr Documented by: Ketorolac Tromethamine (Toradol) 15 mg IVP Q6HR PRN PRN Reason: Pain Stop: 03/19/20 12:18 Lorazepam (Ativan) 0.5 mg PO Q8H PRN PRN Reason: Anxiety Losartan Potassium (Cozaar) 100 mg PO DAILY [facility] Last Admin: 03/15/20 09:30 Dose: 100 mg Documented by: Metoprolol Tartrate (Lopressor) 25 mg PO DAILY [facility] Last Admin: 03/15/20 09:30 Dose: 25 mg Documented by: Miscellaneous Information (Potassium Per Protocol) 1 each MISCELLANE DAILY PRN; Protocol PRN Reason: Per Protocol Miscellaneous Information (Potassium Per Protocol) 1 each MISCELLANE DAILY PRN; Protocol PRN Reason: Per Protocol Miscellaneous Information (Potassium Per Protocol) 1 each MISCELLANE DAILY PRN; Protocol PRN Reason: Per Protocol Miscellaneous Information (Magnesium Per Protocol) 1 each MISCELLANE DAILY PRN; Protocol PRN Reason: Per Protocol Miscellaneous Information (Potassium Per Protocol) 1 each MISCELLANE DAILY PRN; Protocol PRN Reason: Per Protocol Morphine Sulfate (Morphine Sulfate (Inj)) 4 mg IV Q4HR PRN PRN Reason: Severe Pain Naloxone HCl (Narcan) 0.2 mg IV Q2M PRN PRN Reason: Opioid Reversal Nicotine (Habitrol 14mg/24hr Patch) 1 patch TRANSDERM DAILY [facility] Last Admin: 03/15/20 09:31 Dose: 1 patch Documented by: Ondansetron HCl (Zofran) 4 mg IVP Q8HR PRN PRN Reason: Nausea And Vomiting Last Admin: 03/10/20 20:21 Dose: 4 mg Documented by: Pantoprazole Sodium (Protonix) 40 mg IVP BID [facility] Last Admin: 03/15/20 09:32 Dose: 40 mg Documented by: Potassium Chloride (K-Dur 20) 20 meq PO ONCE ONE Stop: 03/15/20 17:01 Objective - Vital Signs Vital signs: Vital Signs Temp 98.5 F 03/15/20 09:39 Pulse 61 03/15/20 09:39 Resp 18 03/15/20 09:39 BP 165/86 03/15/20 09:39 Pulse Ox 98 03/14/20 23:45 Intake & Output 03/14/20 03/15/20 03/15/20 18:59 06:59 18:59 Intake Total 1830 2310 300 Output Total 60 Balance 177 2310 300 Intake: IV 300 Oral 18290 Output: Stool 60 Other: Voiding Method Toilet # Voids 1 1 # Bowel Movements 1 1 - Exam Gen: This is a 49-year-old female currently in the bathroom, awake and alert and oriented 3, well-developed, well-nourished. Temp is 98.5F, pulse is 61, respirations are 18, blood pressure is 165/86, oxygen saturation is 98% on room air. HEENT: Head is atraumatic, normocephalic. Pupils equal, round. Sclerae is anicteric. Generalized puffiness and edema noted to the face NECK: Supple. No JVD. No lymphadenopathy. No thyromegaly. LUNGS: Diminished breath sounds at the bases with no wheezing or rhonchi noted. No intercostal retractions. HEART: S1, S2 are muffled ABDOMEN: Soft. Bowel sounds are present. No masses. No tenderness. EXTREMITIES: No pedal edema. No calf tenderness. NEUROLOGICAL: Patient is awake, alert and oriented x3. Cranial nerves 2 through 12 are grossly intact. - Labs CBC & Chem 7: 03/15/20 07:22 03/15/20 07:22 Labs: Abnormal Lab Results - Last 24 Hours (Table) 03/15/20 03/15/20 Range/Units 07:22 07:22 RBC 3.46 L (3.80-5.40) m/uL MCV 109.3 H (80.0-100.0) fL MCHC 30.5 L (31.0-37.0) g/dL Macrocytosis Marked A Sodium 136 L (137-145) mmol/L Potassium 3.4 L (3.5-5.1) mmol/L BUN 4 L (7-17) mg/dL Creatinine 0.49 L (0.52-1.04) mg/dL Glucose 73 L (74-99) mg/dL Calcium 8.1 L (8.4-10.2) mg/dL Total Protein 5.1 L (6.3-8.2) g/dL Albumin 2.6 L (3.5-5.0) g/dL Microbiology - Last 24 Hours (Table) 03/12/20 10:00 Stool Culture - Final Stool Assessment and Plan Assessment: Possible acute abdominal pain with acute ascending colitis Possible sigmoid stricture secondary to diverticulitis Dehydration, present on admission [place] hypertension Abdominal pain with possible acute gastritis Hyponatremia Hypokalemia Increased MCV Full code Recommend to continue with current medications, management, and symptomatic treatment. Patient will be given a dose of Lasix for generalized edema. Patient underwent colonoscopy with surgery today with stricture noted in no diverticulitis. Patient initiated on clear liquids and monitor for tolerance. Will repeat a.m. labs. Potassium slightly low at 3.4 and will be replaced. Further recommendations to follow. Possible discharge in 24-48 hours.
[2020-03-15] MEDS ORDERED: POTASSIUM CHLORIDE ER 20 MEQ TAB.ER PO ONE (17:00)
[2020-03-15] MEDS ORDERED: FUROSEMIDE 10 MG/ML 2 ML VIAL IV ONE (17:00)
[2020-03-15] MEDS: hydrALAZINE HCL 25 MG TAB PO PRN (17:56)
[2020-03-16] MEDS ORDERED: amLODIPine 10 MG TAB PO ONE (01:50)
[2020-03-16] MEDS: hydrALAZINE HCL 25 MG TAB PO PRN (03:31)
[2020-03-16] MEDS: metroNIDAZOLE-NS PMX 500 MG in SALINE 1 100ML.BAG IVPB SCH ×3 (05:08→21:07)
[2020-03-16 06:59] LABS: HCT 36.2 % (34.0-46.0); HGB 11.9 gm/dL (11.4-16.0); MCH 35.2 pg (25.0-35.0); MCHC 32.8 g/dL (31.0-37.0); MCV 107.5 fL (80.0-100.0); Macrocytosis Moderate; Mean Platelet Volume 7.7; Platelet Count 312 k/uL (150-450); RBC 3.37 m/uL (3.80-5.40); RDW 12.8 % (11.5-15.5); WBC 5.4 k/uL (3.8-10.6)
[2020-03-16 07:04] LABS: African American GFR (CKD) >90 (>60 ml/min/1.73 sqM); Anion Gap 9 mmol/L; Blood Urea Nitrogen <2 mg/dL (7-17); Calcium 8.2 mg/dL (8.4-10.2); Carbon Dioxide 25 mmol/L (22-30); Chloride 101 mmol/L (98-107); Glucose 81 mg/dL (74-99); Magnesium 1.4 mg/dL (1.6-2.3); Non-African American GFR(CKD) >90 (>60 ml/min/1.73 sqM); Potassium 3.1 mmol/L (3.5-5.1); Sodium 135 mmol/L (137-145)
[2020-03-16 07:26] LABS: Band Neutrophils % 1 %; Basophils # (M) 0.05 k/uL (0-0.2); Lymphocytes # (M) 1.24 k/uL (1.0-4.8); Monocytes # (M) 1.08 k/uL (0-1.0); Neutrophils % (M) 55 %; Nucleated Red Blood Cells 0 /100 WBC (0-0); Total Cells Counted 100
[2020-03-16] MEDS: ALBUTEROL NEBULIZED 2.5 MG/3 ML INHALATION SCH ×4 (08:32→19:32)
[2020-03-16] MEDS: MAGNESIUM SULFATE-D5W PMX 1 GM in DEXTROSE/WATER 1 100ML.BAG IVPB SCH ×3 (09:13→11:43)
[2020-03-16] MEDS: POTASSIUM CHLORIDE ER 20 MEQ TAB.ER PO SCH ×2 (09:14→10:34)
[2020-03-16] MEDS: PANTOPRAZOLE 40 MG/10 ML VIAL IVP SCH ×2 (09:14→21:04)
[2020-03-16] MEDS: NICOTINE 14MG/24HR PATCH TRANSDERM SCH (09:15)
[2020-03-16] MEDS: amLODIPine 10 MG TAB PO SCH (09:16)
[2020-03-16] MEDS: METOPROLOL TARTRATE 25 MG TAB PO SCH (09:16)
[2020-03-16] MEDS: LOSARTAN 50 MG TAB PO SCH (09:16)
[2020-03-16] MEDS: HEPARIN SODIUM,PORCINE 5,000 UNIT/ML 1 ML VIAL SQ SCH ×2 (09:16→19:33)
--- NOTE | 2020-03-16 11:10 | P.PN ---
Progress Note - Text Progress Note Date: 03/16/20 The patient was found to have a diverticular stricture at approximate 45 cm gloria of the colon yesterday. Patient was scheduled for low anterior resection tomorrow. On exam her vital signs are stable. Her abdomen soft. I discussed the risks and possible colostomy wound infection bleeding with the patient.
[2020-03-16] MEDS ORDERED: POTASSIUM CHLORIDE ER 20 MEQ TAB.ER PO STA (12:55)
--- NOTE | 2020-03-16 14:51 | P.PN ---
Subjective Progress Note Date: 03/16/20 Principal diagnosis: This is a 49-year-old female who was recently admitted with abdominal pain and being evaluated to rule out stricture. Patient underwent colonoscopy with surgery today showing stricture with the inability to advance the colonoscope. There is evidence of diverticulosis noted. Is currently maintained on IV antibiotics and will continue at this time. Patient's diet will be initiated on clear liquids and monitor for advancement and tolerance slowly. Patient's potassium was slightly low at 3.4 and will replace. Will repeat a.m. labs. Review of systems: Constitutional: No reports of fevers or chills Cardiovascular: No reports of chest pain or palpitations Respiratory: No reports of shortness of breath or cough GI: Reports occasional nausea, no reports of vomiting, reports loose stools : No reports of dysuria or retention Neurovascular: No reports of weakness or numbness 03/16/2020 Patient is seen and evaluated and follow-up in potassium was found to be 3.1 this morning along with magnesium of 1.4. Currently being replaced. Repeat potassium this afternoon is 3.6. Will repeat a.m. labs. Patient is maintained on clear liquid diet and tolerating with no reports of nausea or vomiting noted. Patient will be made nothing by mouth this evening and is scheduled for low anterior resection tomorrow due to diverticular stricture. Surgery following closely. Currently no reports of chest pain, shortness of breath, or palpitations. Patient is afebrile. Objective - Vital Signs Vital signs: Vital Signs Temp 98.2 F 03/16/20 12:37 Pulse 65 03/16/20 12:37 Resp 20 03/16/20 12:37 BP 131/84 03/16/20 12:37 Pulse Ox 99 03/16/20 12:37 Intake & Output 03/15/20 03/16/20 03/16/20 18:59 06:59 18:59 Intake Total 300 350 Balance 300 350 Intake: IV 300 Intake, IV Titration 100 Amount metroNIDAZOLE-NS PMX 500 100 mg In Saline 1 100ml.bag @ 100 mls/hr IVPB Q8H [facility] Rx#:[id number] Oral 250 Other: Voiding Method Toilet # Voids 1 # Bowel Movements 1 - Exam Gen: This is a 49-year-old female currently in the bathroom, awake and alert and oriented 3, well-developed, well-nourished. Temp is 98.2F, pulse is 65, respirations are 20, blood pressure is 131/84, oxygen saturation is 99% on room air. HEENT: Head is atraumatic, normocephalic. Pupils equal, round. Sclerae is anicteric. Generalized puffiness and edema noted to the face NECK: Supple. No JVD. No lymphadenopathy. No thyromegaly. LUNGS: Diminished breath sounds at the bases with no wheezing or rhonchi noted. No intercostal retractions. HEART: S1, S2 are muffled ABDOMEN: Soft. Bowel sounds are present. No masses. No tenderness. EXTREMITIES: No pedal edema. No calf tenderness. NEUROLOGICAL: Patient is awake, alert and oriented x3. Cranial nerves 2 through 12 are grossly intact. - Labs CBC & Chem 7: 03/16/20 06:33 03/16/20 11:48 Labs: Abnormal Lab Results - Last 24 Hours (Table) 03/16/20 03/16/20 Range/Units 06:33 06:33 RBC 3.37 L (3.80-5.40) m/uL MCV 107.5 H (80.0-100.0) fL MCH 35.2 H (25.0-35.0) pg Monocytes # (Manual) 1.08 H (0-1.0) k/uL Sodium 135 L (137-145) mmol/L Potassium 3.1 L (3.5-5.1) mmol/L BUN <2 L (7-17) mg/dL Creatinine 0.44 L (0.52-1.04) mg/dL Calcium 8.2 L (8.4-10.2) mg/dL Magnesium 1.4 L (1.6-2.3) mg/dL Microbiology - Last 24 Hours (Table) 03/12/20 10:00 Stool Culture - Final Stool Assessment and Plan Assessment: Possible acute abdominal pain with acute ascending colitis Possible sigmoid stricture secondary to diverticulitis Dehydration, present on admission hypertension Abdominal pain with possible acute gastritis Hypomagnesemia Hyponatremia Hypokalemia Increased MCV Full code Recommend to continue with current medications, management, and symptomatic treatment. Patient scheduled to undergo low anterior resection with surgery in the morning due to diverticular stricture. Patient initiated on clear liquids tolerating no reports of nausea or vomiting. Patient will be made nothing by mouth tonight. Will repeat a.m. labs. Potassium low at 3.1 and will be replaced. Magnesium also low at 1.4 today. Further recommendations to follow.
[2020-03-16 15:55] VITALS: BMI 24.2
[2020-03-17] MEDS: metroNIDAZOLE-NS PMX 500 MG in SALINE 1 100ML.BAG IVPB SCH ×3 (05:14→20:51)
[2020-03-17 06:26] LABS: HCT 37.4 % (34.0-46.0); HGB 12.7 gm/dL (11.4-16.0); MCH 36.9 pg (25.0-35.0); MCV 108.6 fL (80.0-100.0); Macrocytosis Moderate; Mean Platelet Volume 7.6; Platelet Count 382 k/uL (150-450); RBC 3.45 m/uL (3.80-5.40); WBC 5.3 k/uL (3.8-10.6)
[2020-03-17 06:35] LABS: African American GFR (CKD) >90 (>60 ml/min/1.73 sqM); Anion Gap 6 mmol/L; Blood Urea Nitrogen 2 mg/dL (7-17); Calcium 8.5 mg/dL (8.4-10.2); Carbon Dioxide 27 mmol/L (22-30); Chloride 105 mmol/L (98-107); Glucose 94 mg/dL (74-99); Magnesium 1.8 mg/dL (1.6-2.3); Non-African American GFR(CKD) >90 (>60 ml/min/1.73 sqM); Potassium 3.7 mmol/L (3.5-5.1); Sodium 138 mmol/L (137-145)
[2020-03-17] MEDS ORDERED: POTASSIUM CHLORIDE ER 20 MEQ TAB.ER PO SCH (08:00)
[2020-03-17] MEDS: POTASSIUM CHLORIDE 10 MEQ in WATER FOR INJECTION 1 100ML.BAG IVPB SCH ×2 (08:08→09:45)
[2020-03-17] MEDS: MAGNESIUM SULFATE-D5W PMX 1 GM in DEXTROSE/WATER 1 100ML.BAG IVPB SCH ×2 (08:11→09:56)
[2020-03-17 08:40] LABS: Lymphocytes # (M) 1.33 k/uL (1.0-4.8); Monocytes # (M) 0.85 k/uL (0-1.0); Neutrophils # (M) 3.13 k/uL (1.3-7.7); Neutrophils % (M) 59 %; Nucleated Red Blood Cells 0 /100 WBC (0-0); Total Cells Counted 100
[2020-03-17 08:41] LABS: Anisocytosis (M) Present; Poikilocytosis (M) Present
[2020-03-17] MEDS: NICOTINE 14MG/24HR PATCH TRANSDERM SCH (09:26)
[2020-03-17] MEDS: METOPROLOL TARTRATE 25 MG TAB PO SCH (09:31)
[2020-03-17] MEDS: PANTOPRAZOLE 40 MG/10 ML VIAL IVP SCH ×2 (09:31→20:51)
[2020-03-17] MEDS: HEPARIN SODIUM,PORCINE 5,000 UNIT/ML 1 ML VIAL SQ SCH ×2 (09:31→20:51)
[2020-03-17] MEDS: LOSARTAN 50 MG TAB PO SCH (09:31)
[2020-03-17] MEDS: amLODIPine 10 MG TAB PO SCH (09:58)
[2020-03-17] MEDS: ALBUTEROL NEBULIZED 2.5 MG/3 ML INHALATION SCH ×3 (11:24→19:01)
[2020-03-17] MEDS ORDERED: IV FLUID CONTINUATION 400 ML IV ONE (12:54)
[2020-03-17] MEDS ORDERED: fentaNYL (PF) 50 MCG/ML 2 ML AMP IVP ONE (13:38)
[2020-03-17] MEDS ORDERED: MIDAZOLAM 2 MG/2 ML VIAL IVP ONE (13:38)
[2020-03-17] MEDS ORDERED: LACTATED RINGERS 1,000 ML IV ONE ×2 (13:59→16:28)
--- NOTE | 2020-03-17 14:41 | P.PN ---
Subjective Progress Note Date: 03/17/20 Principal diagnosis: This is a 49-year-old female who was recently admitted with abdominal pain and being evaluated to rule out stricture. Patient underwent colonoscopy with surgery today showing stricture with the inability to advance the colonoscope. There is evidence of diverticulosis noted. Is currently maintained on IV antibiotics and will continue at this time. Patient's diet will be initiated on clear liquids and monitor for advancement and tolerance slowly. Patient's potassium was slightly low at 3.4 and will replace. Will repeat a.m. labs. Review of systems: Constitutional: No reports of fevers or chills Cardiovascular: No reports of chest pain or palpitations Respiratory: No reports of shortness of breath or cough GI: Reports occasional nausea, no reports of vomiting, reports loose stools : No reports of dysuria or retention Neurovascular: No reports of weakness or numbness 03/16/2020 Patient is seen and evaluated and follow-up in potassium was found to be 3.1 this morning along with magnesium of 1.4. Currently being replaced. Repeat potassium this afternoon is 3.6. Will repeat a.m. labs. Patient is maintained on clear liquid diet and tolerating with no reports of nausea or vomiting noted. Patient will be made nothing by mouth this evening and is scheduled for low anterior resection tomorrow due to diverticular stricture. Surgery following closely. Currently no reports of chest pain, shortness of breath, or palpitations. Patient is afebrile. 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 Patient has been nothing by mouth. Patient continues to have some abdominal discomfort and tenderness upon palpation but denies any nausea or vomiting at this time. Patient's potassium and magnesium were replaced and potassium is 3.8 and magnesium is 1.8. Total time is slightly improved at 138. Hemoglobin is 12.7 today. Patient is maintained on IV antibiotics in the form of ceftriaxone and Flagyl and will continue at this time. Review of systems: Constitutional: No reports of fevers or chills Cardiovascular: No reports of chest pain or palpitations Respiratory: No reports of shortness of breath or cough GI: No reports of nausea or vomiting, reports abdominal discomfort : No reports of dysuria or retention Active Medications Acetaminophen (Tylenol Tab) 650 mg PO Q6HR PRN PRN Reason: Mild Pain or Fever > 100.5 Last Admin: 03/13/20 23:40 Dose: 650 mg Documented by: Albuterol Sulfate (Ventolin Nebulized) 2.5 mg INHALATION RT-QID [facility] Last Admin: 03/17/20 11:24 Dose: Not Given Documented by: Albuterol Sulfate (Ventolin Hfa Inhaler) 1 - 2 puff INHALATION RT-Q4H PRN PRN Reason: Shortness Of Breath Alprazolam (Xanax) 0.25 mg PO TID PRN PRN Reason: Anxiety Amlodipine Besylate (Norvasc) 10 mg PO DAILY [facility] Last Admin: 03/17/20 09:58 Dose: 10 mg Documented by: Heparin Sodium (Porcine) (Heparin) 5,000 unit SQ Q12HR [facility] Last Admin: 03/17/20 09:31 Dose: 5,000 unit Documented by: Hydralazine HCl (Apresoline) 25 mg PO Q8HR PRN PRN Reason: Hypertension Last Admin: 03/16/20 03:31 Dose: 25 mg Documented by: Hydromorphone HCl (Dilaudid) 0.5 mg IVP Q3HR PRN PRN Reason: Moderate Pain Last Admin: 03/12/20 10:45 Dose: 0.5 mg Documented by: Hydromorphone HCl (Dilaudid) 1 mg IVP Q3HR PRN PRN Reason: Severe Pain Last Admin: 03/10/20 20:30 Dose: 1 mg Documented by: Ceftriaxone Sodium 2 gm/ (Sodium Chloride) 50 mls @ 100 mls/hr IVPB Q24H [facility] Last Admin: 03/16/20 20:01 Dose: 100 mls/hr Documented by: Metronidazole 500 mg/ IV (Solution) 100 mls @ 100 mls/hr IVPB Q8H [facility] Last Admin: 03/17/20 12:38 Dose: 100 mls/hr Documented by: Ropivacaine 250 mg/Hydromorphone HCl 5 mg/ Sodium Chloride 250 mls @ 0 mls/hr EPIDURAL .Q0M PRN; Protocol PRN Reason: Pain Control Ketorolac Tromethamine (Toradol) 15 mg IVP Q6HR PRN PRN Reason: Pain Stop: 03/19/20 12:18 Losartan Potassium (Cozaar) 100 mg PO DAILY [facility] Last Admin: 03/17/20 09:31 Dose: 100 mg Documented by: Metoprolol Tartrate (Lopressor) 25 mg PO DAILY [facility] Last Admin: 03/17/20 09:31 Dose: 25 mg Documented by: Miscellaneous Information (Potassium Per Protocol) 1 each MISCELLANE DAILY PRN; Protocol PRN Reason: Per Protocol Miscellaneous Information (Potassium Per Protocol) 1 each MISCELLANE DAILY PRN; Protocol PRN Reason: Per Protocol Miscellaneous Information (Potassium Per Protocol) 1 each MISCELLANE DAILY PRN; Protocol PRN Reason: Per Protocol Miscellaneous Information (Magnesium Per Protocol) 1 each MISCELLANE DAILY PRN; Protocol PRN Reason: Per Protocol Miscellaneous Information (Potassium Per Protocol) 1 each MISCELLANE DAILY PRN; Protocol PRN Reason: Per Protocol Morphine Sulfate (Morphine Sulfate (Inj)) 4 mg IV Q4HR PRN PRN Reason: Severe Pain Naloxone HCl (Narcan) 0.2 mg IV Q2M PRN PRN Reason: Opioid Reversal Nicotine (Habitrol 14mg/24hr Patch) 1 patch TRANSDERM DAILY [facility] Last Admin: 03/17/20 09:26 Dose: 1 patch Documented by: Ondansetron HCl (Zofran) 4 mg IVP Q8HR PRN PRN Reason: Nausea And Vomiting Last Admin: 03/10/20 20:21 Dose: 4 mg Documented by: Pantoprazole Sodium (Protonix) 40 mg IVP BID [facility] Last Admin: 03/17/20 09:31 Dose: 40 mg Documented by: Objective - Vital Signs Vital signs: Vital Signs Temp 97.3 F L 03/17/20 13:00 Pulse 96 03/17/20 13:00 Resp 16 03/17/20 13:00 BP 147/93 03/17/20 13:00 Pulse Ox 95 03/17/20 08:17 Intake & Output 03/16/20 03/17/20 03/17/20 18:59 06:59 18:59 Intake Total 500 0 Balance 500 0 Weight 74.3 kg Intake: IV 0 Intake, IV Titration 100 Amount metroNIDAZOLE-NS PMX 500 100 mg In Saline 1 100ml.bag @ 100 mls/hr IVPB Q8H [facility] Rx#:[id number] Oral 400 Other: Voiding Method Toilet Toilet # Voids 3 1 - Exam Gen: This is a 49-year-old female lying in bed, alert and oriented 3, well- developed, well-nourished. Temp is 98.8F, pulse is 66, respirations are 16, blood pressure is 155/86, oxygen saturation is 95% on room air. HEENT: Head is atraumatic, normocephalic. Pupils equal, round. Sclerae is anicteric. NECK: Supple. No JVD. No lymphadenopathy. No thyromegaly. LUNGS: Diminished breath sounds at the bases with no wheezing or rhonchi noted. No intercostal retractions. HEART: S1, S2 are muffled ABDOMEN: Soft. Bowel sounds are present. No masses. Mild tenderness noted upon palpation. EXTREMITIES: No pedal edema. No calf tenderness. NEUROLOGICAL: Patient is awake, alert and oriented x3. Cranial nerves 2 through 12 are grossly intact. - Labs CBC & Chem 7: 03/17/20 06:01 03/17/20 11:40 Labs: Abnormal Lab Results - Last 24 Hours (Table) 03/17/20 03/17/20 Range/Units 06:01 06:01 RBC 3.45 L (3.80-5.40) m/uL MCV 108.6 H (80.0-100.0) fL MCH 36.9 H (25.0-35.0) pg BUN 2 L (7-17) mg/dL Assessment and Plan Assessment: Possible acute abdominal pain with acute ascending colitis Possible sigmoid stricture secondary to diverticulitis Dehydration, present on admission hypertension Abdominal pain with possible acute gastritis Hypomagnesemia Hyponatremia Hypokalemia Increased MCV Full code Recommendations and discussion: Recommend to continue with current medications, management, and symptomatic treatment. Patient scheduled to undergo low anterior resection with surgery today due to diverticular stricture. Patient is currently nothing by mouth until surgery is performed. Will repeat a.m. labs. Potassium today at 3.8 and magnesium is 1.8. Further recommendations to follow.
[2020-03-17] MEDS ORDERED: PROPOFOL 10 MG/ML 20 ML VIAL IV ONE (15:07)
[2020-03-17] MEDS ORDERED: SODIUM CHLORIDE 0.9% 100 ML BAG ONE (15:07)
[2020-03-17] MEDS ORDERED: NEOSTIGMINE 1 MG/ML 10 ML VIAL ONE (15:07)
[2020-03-17] MEDS ORDERED: LIDOCAINE 1% INJ 10MG/ML (20 ML MDV) ONE (15:07)
[2020-03-17] MEDS ORDERED: GLYCOPYRROLATE 0.2 MG/ML 2 ML VIAL ONE (15:07)
[2020-03-17] MEDS ORDERED: SUCCINYLCHOLINE CHLORIDE 100 MG/5 ML SYR IV ONE (15:07)
[2020-03-17] MEDS ORDERED: fentaNYL (PF) 50 MCG/ML 2 ML AMP ONE (15:07)
[2020-03-17] MEDS ORDERED: ROCURONIUM BROMIDE 10 MG/ML 5 ML VIAL IV ONE (15:07)
[2020-03-17] MEDS ORDERED: ceFAZolin 1,000 MG VIAL ONE (15:07)
[2020-03-17] MEDS ORDERED: BENZOCAINE/MENTHOL LOZENG 1 EACH LOZENGE MUCOUS MEM PRN (16:26)
[2020-03-17] MEDS ORDERED: METOCLOPRAMIDE 5 MG/ML 2 ML VIAL IVP PRN (16:26)
--- NOTE | 2020-03-17 16:26 | P.OP ---
Date of Procedure: 03/17/20 Preoperative Diagnosis: Sigmoid colon stricture Diverticulitis Postoperative Diagnosis: ; Sigmoid colon stricture Diverticulitis Procedure(s) Performed: Low anterior section Takedown splenic flexure Anesthesia: RADHAA Surgeon: Jairon Alves Estimated Blood Loss (ml): 20 Pathology: other (Sigmoid colon and left colon) Condition: stable Disposition: PACU Description of Procedure: The patient's placed the operative table in supine position. She received general anesthesia. She is in place in dorsal lithotomy position. The abdomen was entered through a low midline incision. The Bookwalter specimen. The colon was examined. The; appeared to have inflammation. This appeared to be due to diverticulosis. It was felt that there was a possible stricture in the proximal part of the sigmoid colon. At this point the white line of Toldt was divided in the sigmoid colon and left colon were reflected medially. The splenic flexure was taken down using the Enseal device. And then the distal transverse colon was mobilized. At this point the 25 mm EEA anvil was placed in the colon. The colon was then transected with a GI stapler and the antrum was brought through the staple line. The mesentery the bowel was then divided using Enseal device this was done to the level of the proximal rectum. The rectum was then transected with the contour stapler. The specimens of pathology. The EEA stapler was then placed patient anus and passed into the rectum. The spike was driven through the rectal staple line. The anvil was connected and then the anvil was closed in the stapler. The stapler was closed and then fired. Stapler was then withdrawn. 2 intact tissue rings were withdrawn. A leak test was performed by submerging the anastomosis under water and insufflating the rectum with air via a rigid sigmoidoscope. There is no evidence of extravasation. The abdomen was irrigated there is no bleeding seen. The fascia was closed with looped #1 PDS suture. Skin was closed jo-ann. Patient top she will was sent to recovery in stable condition.
[2020-03-17] MEDS: ROPIVACAINE 250 MG, HYDROMORPHONE (PF) 5 MG in SODIUM CHLORIDE 0.9% 200 ML EPIDURAL PRN ×2 (16:31→17:09)
[2020-03-17] MEDS: HYDROmorphone 1 MG/ML 1 ML SYRINGE IVP ONE ×2 (16:31→16:36)
[2020-03-17] MEDS ORDERED: diphenhydrAMINE 50 MG/ML 1 ML VIAL IVP ONE (17:15)
[2020-03-17] MEDS ORDERED: HYDROmorphone 0.5 MG/0.5 ML SYRINGE IVP ONE (17:15)
[2020-03-17] MEDS: D5-0.45% NACL WITH KCL 20MEQ/L 1,000 ML IV SCH (18:13)
[2020-03-17] MEDS: FAMOTIDINE 20 MG/2 ML VIAL IV SCH (20:51)
[2020-03-17] MEDS: ALVIMOPAN 12 MG CAPSULE PO SCH (20:51)
[2020-03-17] MEDS: ALPRAZolam 0.25 MG TAB PO PRN (22:44)
[2020-03-18] MEDS: D5-0.45% NACL WITH KCL 20MEQ/L 1,000 ML IV SCH ×3 (03:25→17:39)
--- NOTE | 2020-03-18 08:28 | P.PN ---
Progress Note - Text Progress Note Date: 03/18/20 (6:30 AM) Patient is postop day 1 from low abdominal resection. She has a thoracic epidural in place for pain control. Pain score is 2/10. Patient does endorse mild itching. Patient denies nausea, vomiting, headaches. Catheter site dressing is clean, dry, intact. Patient has ambulated.
[2020-03-18] MEDS: ALBUTEROL NEBULIZED 2.5 MG/3 ML INHALATION SCH ×4 (08:58→21:41)
[2020-03-18] MEDS: NICOTINE 14MG/24HR PATCH TRANSDERM SCH (08:59)
[2020-03-18] MEDS: METOPROLOL TARTRATE 25 MG TAB PO SCH (08:59)
[2020-03-18] MEDS: PANTOPRAZOLE 40 MG/10 ML VIAL IVP SCH ×2 (09:00→21:23)
[2020-03-18] MEDS: FAMOTIDINE 20 MG/2 ML VIAL IV SCH ×2 (09:00→21:22)
[2020-03-18] MEDS: ALVIMOPAN 12 MG CAPSULE PO SCH ×2 (09:00→21:23)
[2020-03-18] MEDS: amLODIPine 10 MG TAB PO SCH (09:00)
[2020-03-18] MEDS: LOSARTAN 50 MG TAB PO SCH (09:00)
[2020-03-18] MEDS: HEPARIN SODIUM,PORCINE 5,000 UNIT/ML 1 ML VIAL SQ SCH ×2 (09:10→21:22)
[2020-03-18] MEDS: diphenhydrAMINE 50 MG/ML 1 ML VIAL IVP PRN ×2 (09:36→15:57)
[2020-03-18 09:37] LABS: Basophils % (A) 0 %; Eosinophils # (A) 0.1 k/uL (0-0.7); Eosinophils % (A) 1 %; HCT 35.7 % (34.0-46.0); HGB 11.4 gm/dL (11.4-16.0); Lymphocytes # (A) 1.2 k/uL (1.0-4.8); Lymphocytes % (A) 15 %; MCH 35.8 pg (25.0-35.0); MCHC 31.9 g/dL (31.0-37.0); MCV 112.3 fL (80.0-100.0); Macrocytosis Marked; Mean Platelet Volume 7.6; Monocytes # (A) 0.4 k/uL (0-1.0); Monocytes % (A) 5 %; Neutrophils # (A) 6.3 k/uL (1.3-7.7); Neutrophils % (A) 77 %; Platelet Count 370 k/uL (150-450); RBC 3.18 m/uL (3.80-5.40); WBC 8.2 k/uL (3.8-10.6)
[2020-03-18 09:58] LABS: African American GFR (CKD) >90 (>60 ml/min/1.73 sqM); Anion Gap 4 mmol/L; Blood Urea Nitrogen 4 mg/dL (7-17); Carbon Dioxide 27 mmol/L (22-30); Chloride 99 mmol/L (98-107); Glucose 104 mg/dL (74-99); Magnesium 1.7 mg/dL (1.6-2.3); Non-African American GFR(CKD) >90 (>60 ml/min/1.73 sqM); Potassium 3.8 mmol/L (3.5-5.1); Sodium 130 mmol/L (137-145)
[2020-03-18 10:26] LABS: Large Platelets Present
[2020-03-18] MEDS: ACETAMINOPHEN TAB 325 MG TAB PO PRN (13:51)
--- NOTE | 2020-03-18 13:55 | P.PN ---
Subjective Progress Note Date: 03/18/20 Principal diagnosis: This is a 49-year-old female who was recently admitted with abdominal pain and being evaluated to rule out stricture. Patient underwent colonoscopy with surgery today showing stricture with the inability to advance the colonoscope. There is evidence of diverticulosis noted. Is currently maintained on IV antibiotics and will continue at this time. Patient's diet will be initiated on clear liquids and monitor for advancement and tolerance slowly. Patient's potassium was slightly low at 3.4 and will replace. Will repeat a.m. labs. Review of systems: Constitutional: No reports of fevers or chills Cardiovascular: No reports of chest pain or palpitations Respiratory: No reports of shortness of breath or cough GI: Reports occasional nausea, no reports of vomiting, reports loose stools : No reports of dysuria or retention Neurovascular: No reports of weakness or numbness 03/16/2020 Patient is seen and evaluated and follow-up in potassium was found to be 3.1 this morning along with magnesium of 1.4. Currently being replaced. Repeat potassium this afternoon is 3.6. Will repeat a.m. labs. Patient is maintained on clear liquid diet and tolerating with no reports of nausea or vomiting noted. Patient will be made nothing by mouth this evening and is scheduled for low anterior resection tomorrow due to diverticular stricture. Surgery following closely. Currently no reports of chest pain, shortness of breath, or palpitations. Patient is afebrile. 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 Patient has been nothing by mouth. Patient continues to have some abdominal discomfort and tenderness upon palpation but denies any nausea or vomiting at this time. Patient's potassium and magnesium were replaced and potassium is 3.8 and magnesium is 1.8. Total time is slightly improved at 138. Hemoglobin is 12.7 today. Patient is maintained on IV antibiotics in the form of ceftriaxone and Flagyl and will continue at this time. Review of systems: Constitutional: No reports of fevers or chills Cardiovascular: No reports of chest pain or palpitations Respiratory: No reports of shortness of breath or cough GI: No reports of nausea or vomiting, reports abdominal discomfort : No reports of dysuria or retention 03/18/2020 Patient is seen and evaluated in follow-up status post surgery of the lower anterior resection postop day #1. Patient continues to have some abdominal discomfort and has a midline incision and the dressing is dry and intact. Shadowing on the dressing is noted from fresh postop. No active bleeding noted. Patient remains on clear liquids and will continue at this time. Patient also continues to have an epidural pump for pain management. Surgery is following closely. Patient continues to have an indwelling Berrios catheter and is requesting to have it removed although is unable to get up out of the bed yet due to the epidural pain pump. Discussed with the patient about continuing to use incentive spirometer at least 10 times every hour while awake. An abdominal binder will be ordered as patient states she is having some abdominal discomfort with coughing. No reports of nausea or vomiting and patient is tolerating clear liquids asking for an advancement. Will continue with clear liquids at this time per surgery recommendations as she just had the surgery yesterday afternoon. Patient states she is feeling some gas although is not having any bowel movements at this time. No reports of chest pain, shortness of breath, or palpitations. No reports of nausea or vomiting as mentioned previously. Potassium is currently 3.8 and magnesium is 1.7. Sodium slightly low at 130 and will repeat a.m. labs. Objective - Vital Signs Vital signs: Vital Signs Temp 100.0 F H 03/18/20 07:00 Pulse 77 03/18/20 11:51 Resp 17 03/18/20 07:00 BP 132/68 03/18/20 07:00 Pulse Ox 91 L 03/18/20 07:00 Intake & Output 03/17/20 03/18/20 03/18/20 18:59 06:59 18:59 Intake Total 1266 Output Total 350 500 Balance 916 -500 Intake: IV 1266 Output: Urine 250 500 Estimated Blood Loss 100 Other: Voiding Method Toilet Toilet - Exam Gen: This is a 49-year-old female lying in bed, alert and oriented 3, well- developed, well-nourished. Temp is 100.0F, pulse is 76, respirations are 17, blood pressure is 132/68, oxygen saturation is 91% on room air. HEENT: Head is atraumatic, normocephalic. Pupils equal, round. Sclerae is anicteric. NECK: Supple. No JVD. No lymphadenopathy. No thyromegaly. LUNGS: Diminished breath sounds at the bases with no wheezing or rhonchi noted. No intercostal retractions. HEART: S1, S2 are muffled ABDOMEN: Soft. Sluggish bowel sounds. No masses. Mild tenderness noted upon palpation. Midline surgical dressing is dry with shadowing noted from surgery yesterday. No active bleeding noted. EXTREMITIES: No pedal edema. No calf tenderness. NEUROLOGICAL: Patient is awake, alert and oriented x3. Cranial nerves 2 through 12 are grossly intact. - Labs CBC & Chem 7: 03/18/20 08:51 03/18/20 08:51 Labs: Abnormal Lab Results - Last 24 Hours (Table) 03/18/20 03/18/20 Range/Units 08:51 08:51 RBC 3.18 L (3.80-5.40) m/uL MCV 112.3 H (80.0-100.0) fL MCH 35.8 H (25.0-35.0) pg Macrocytosis Marked A Sodium 130 L (137-145) mmol/L BUN 4 L (7-17) mg/dL Glucose 104 H (74-99) mg/dL Calcium 8.0 L (8.4-10.2) mg/dL Assessment and Plan Assessment: Possible acute abdominal pain with acute ascending colitis sigmoid colon stricture secondary to diverticulitis Status post low anterior resection postop day #1 Dehydration, present on admission hypertension Abdominal pain with possible acute gastritis Hypomagnesemia Hyponatremia Hypokalemia Increased MCV Full code Recommendations and discussion: Recommend to continue with current medications, management, and symptomatic treatment. Patient underwent low anterior resection with surgery due to diverticular stricture and is postop day #1. Patient is currently on clear liquids and tolerating and will continue with this diet at this time. An abdominal binder will be ordered as patient has a slight cough and is having abdominal discomfort with coughing. Instructed the patient to continue using incentive spirometer at least 10 times every hour while awake. Patient is very eager to get up out of the bed and walk. Patient is also an epidural pain pump and will continue and reevaluate in the morning. Surgery following closely.. Will repeat a.m. labs. Potassium today at 3.8 and magnesium is 1.7. Patient's sodium found to be low this morning at 130. Further recommendations to follow.
[2020-03-18] MEDS: ROPIVACAINE 250 MG, HYDROMORPHONE (PF) 5 MG in SODIUM CHLORIDE 0.9% 200 ML EPIDURAL PRN (14:35)
--- NOTE | 2020-03-18 16:13 | P.PN ---
Progress Note - Text Progress Note Date: 03/18/20 the patient is resting comfortan her bed. She denies any significant abdominal pain On exam her vital signs are ltable. Abdomen is soft. Incision site is clean dry and intact. Status post low anterior resection for probable diverticular stricture. Patient will remain on Lear liquids..
[2020-03-19] MEDS: diphenhydrAMINE 50 MG/ML 1 ML VIAL IVP PRN ×4 (00:46→22:08)
[2020-03-19] MEDS: D5-0.45% NACL WITH KCL 20MEQ/L 1,000 ML IV SCH ×4 (04:46→21:44)
--- NOTE | 2020-03-19 06:44 | P.PN ---
Progress Note - Text Progress Note Date: 03/19/20 Patient with pain 04/02. Patient states pain is at incision and back. Denies weakness or paresthesia in extremities. Denies headache. Mild pruritis. Tolerating clears. Epidural @ 9 ml/hr VSS Back - epidural site c/d A/P POD#2 s/p LAR - multimodal analgesia (acetaminophen, NSAID, opioid) - consider d/c epidural
[2020-03-19] MEDS: ALBUTEROL NEBULIZED 2.5 MG/3 ML INHALATION SCH ×4 (08:27→19:48)
[2020-03-19] MEDS: LOSARTAN 50 MG TAB PO SCH (09:00)
[2020-03-19] MEDS: FAMOTIDINE 20 MG/2 ML VIAL IV SCH ×2 (09:00→20:07)
[2020-03-19] MEDS: amLODIPine 10 MG TAB PO SCH (09:00)
[2020-03-19] MEDS: ALVIMOPAN 12 MG CAPSULE PO SCH ×2 (09:00→20:08)
[2020-03-19] MEDS: METOPROLOL TARTRATE 25 MG TAB PO SCH (09:00)
[2020-03-19] MEDS: ACETAMINOPHEN TAB 325 MG TAB PO PRN ×3 (09:01→22:08)
[2020-03-19] MEDS: PANTOPRAZOLE 40 MG/10 ML VIAL IVP SCH ×2 (09:01→20:07)
[2020-03-19] MEDS: NICOTINE 14MG/24HR PATCH TRANSDERM SCH (09:01)
[2020-03-19] MEDS: HEPARIN SODIUM,PORCINE 5,000 UNIT/ML 1 ML VIAL SQ SCH ×2 (09:01→20:08)
--- NOTE | 2020-03-19 10:00 | P.PN ---
Progress Note - Text Progress Note Date: 03/19/20 The patient is postoperative day 2 from low anterior resection for diverticular stricture. She feels well. She's had No significantflatus. On exam her vital signs are stable. Abdomen soft. Incision is clean dry tach. Patient will continue clear liquid diet until she has significant bowel function
[2020-03-19] MEDS: ROPIVACAINE 250 MG, HYDROMORPHONE (PF) 5 MG in SODIUM CHLORIDE 0.9% 200 ML EPIDURAL PRN (14:40)
--- NOTE | 2020-03-19 14:44 | P.PN ---
Subjective Progress Note Date: 03/19/20 Principal diagnosis: This is a 49-year-old female who was recently admitted with abdominal pain and being evaluated to rule out stricture. Patient underwent colonoscopy with surgery today showing stricture with the inability to advance the colonoscope. There is evidence of diverticulosis noted. Is currently maintained on IV antibiotics and will continue at this time. Patient's diet will be initiated on clear liquids and monitor for advancement and tolerance slowly. Patient's potassium was slightly low at 3.4 and will replace. Will repeat a.m. labs. Review of systems: Constitutional: No reports of fevers or chills Cardiovascular: No reports of chest pain or palpitations Respiratory: No reports of shortness of breath or cough GI: Reports occasional nausea, no reports of vomiting, reports loose stools : No reports of dysuria or retention Neurovascular: No reports of weakness or numbness 03/16/2020 Patient is seen and evaluated and follow-up in potassium was found to be 3.1 this morning along with magnesium of 1.4. Currently being replaced. Repeat potassium this afternoon is 3.6. Will repeat a.m. labs. Patient is maintained on clear liquid diet and tolerating with no reports of nausea or vomiting noted. Patient will be made nothing by mouth this evening and is scheduled for low anterior resection tomorrow due to diverticular stricture. Surgery following closely. Currently no reports of chest pain, shortness of breath, or palpitations. Patient is afebrile. 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 Patient has been nothing by mouth. Patient continues to have some abdominal discomfort and tenderness upon palpation but denies any nausea or vomiting at this time. Patient's potassium and magnesium were replaced and potassium is 3.8 and magnesium is 1.8. Total time is slightly improved at 138. Hemoglobin is 12.7 today. Patient is maintained on IV antibiotics in the form of ceftriaxone and Flagyl and will continue at this time. Review of systems: Constitutional: No reports of fevers or chills Cardiovascular: No reports of chest pain or palpitations Respiratory: No reports of shortness of breath or cough GI: No reports of nausea or vomiting, reports abdominal discomfort : No reports of dysuria or retention 03/18/2020 Patient is seen and evaluated in follow-up status post surgery of the lower anterior resection postop day #1. Patient continues to have some abdominal discomfort and has a midline incision and the dressing is dry and intact. Shadowing on the dressing is noted from fresh postop. No active bleeding noted. Patient remains on clear liquids and will continue at this time. Patient also continues to have an epidural pump for pain management. Surgery is following closely. Patient continues to have an indwelling Berrios catheter and is requesting to have it removed although is unable to get up out of the bed yet due to the epidural pain pump. Discussed with the patient about continuing to use incentive spirometer at least 10 times every hour while awake. An abdominal binder will be ordered as patient states she is having some abdominal discomfort with coughing. No reports of nausea or vomiting and patient is tolerating clear liquids asking for an advancement. Will continue with clear liquids at this time per surgery recommendations as she just had the surgery yesterday afternoon. Patient states she is feeling some gas although is not having any bowel movements at this time. No reports of chest pain, shortness of breath, or palpitations. No reports of nausea or vomiting as mentioned previously. Potassium is currently 3.8 and magnesium is 1.7. Sodium slightly low at 130 and will repeat a.m. labs. 03/19/2020 Patient is seen and evaluated in follow-up status post lower anterior resection postop day #2. Patient continues to have abdominal discomfort and states she is passing gas. Patient denies any solid bowel movements at this time. Patient states she did notice some slightly brown loose fecal matter when she was urinating this morning. Surgical dressings are dry and intact. Patient remains on an epidural pump for pain management and currently tolerating clear liquids. Patient is being advanced to full liquid diet today. Surgery following closely. Discussed with the patient about increasing activity as tolerated and continuing to use the incentive spirometer at least 10 times every hour while awake. Patient states her pain is tolerable unless she moves and attempts to position changes. Currently no reports of chest pain, shortness of breath, or palpitations. Patient has had intermittent low-grade fevers noted with this morning's being 99.8F. No reports of nausea or vomiting and patient is tolerating diet as mentioned previously. Indwelling Berrios catheter has been removed and patient is urinating. Objective - Vital Signs Vital signs: Vital Signs Temp 99.8 F H 03/19/20 08:43 Pulse 76 03/19/20 11:34 Resp 18 03/19/20 08:43 BP 124/77 03/19/20 08:43 Pulse Ox 90 L 03/19/20 08:43 Intake & Output 03/18/20 03/19/20 03/19/20 18:59 06:59 18:59 Intake Total 605 Output Total 2024 1099 Balance 605 -20241100 Weight 74.3 kg Intake: Intake, IV Titration 5 Amount Ropivacaine 250 mg 5 Hydromorphone (Pf) 5 mg In Sodium Chloride 0.9% 200 ml @ Per Protocol EPIDURAL .Q0M PRN Rx#: [id number] Oral 600 Output: Urine 2024 1099 Other: Voiding Method Toilet Toilet - Exam Gen: This is a 49-year-old female lying in bed, alert and oriented 3, well- developed, well-nourished. Temp is 99.8F, pulse is 81, respirations are 18, b lood pressure is 124/77, oxygen saturation is 90% on room air. HEENT: Head is atraumatic, normocephalic. Pupils equal, round. Sclerae is anicteric. NECK: Supple. No JVD. No lymphadenopathy. No thyromegaly. LUNGS: Diminished breath sounds at the bases with no wheezing or rhonchi noted. No intercostal retractions. HEART: S1, S2 are muffled ABDOMEN: Soft. bowel sounds noted. No masses. Mild tenderness noted upon palpation. Midline surgical dressing is dry with shadowing noted from surgery yesterday. No active bleeding noted. EXTREMITIES: No pedal edema. No calf tenderness. NEUROLOGICAL: Patient is awake, alert and oriented x3. Cranial nerves 2 through 12 are grossly intact. - Labs CBC & Chem 7: 03/18/20 08:51 03/18/20 08:51 Assessment and Plan Assessment: Possible acute abdominal pain with acute ascending colitis sigmoid colon stricture secondary to diverticulitis Status post low anterior resection postop day #2 Dehydration, present on admission hypertension Abdominal pain with possible acute gastritis Hypomagnesemia Hyponatremia Hypokalemia Increased MCV Full code Recommendations and discussion: Recommend to continue with current medications, management, and symptomatic treatment. Patient underwent low anterior resection with surgery due to diverticular stricture and is postop day #2. Patient is currently on clear liquids and tolerating and will advance to full liquids. Instructed the patient to continue using incentive spirometer at least 10 times every hour while awake. Patient is also on an epidural pain pump and will continue. Surgery following closely.. Will repeat a.m. labs. Further recommendations to follow. Possible discharge in 24-48 hours.
[2020-03-19] MEDS: HYDROmorphone 0.5 MG/0.5 ML SYRINGE IVP PRN (20:07)
[2020-03-20] MEDS: HYDROmorphone 1 MG/ML 1 ML SYRINGE IVP PRN ×8 (00:06→22:54)
[2020-03-20] MEDS: HYDROmorphone 0.5 MG/0.5 ML SYRINGE IVP PRN (03:17)
[2020-03-20] MEDS: ALPRAZolam 0.25 MG TAB PO PRN (06:31)
[2020-03-20] MEDS: D5-0.45% NACL WITH KCL 20MEQ/L 1,000 ML IV SCH ×3 (06:31→21:43)
[2020-03-20 07:12] LABS: Basophils % (A) 0 %; Eosinophils # (A) 0.2 k/uL (0-0.7); Eosinophils % (A) 2 %; HCT 39.2 % (34.0-46.0); HGB 12.8 gm/dL (11.4-16.0); Lymphocytes # (A) 1.9 k/uL (1.0-4.8); Lymphocytes % (A) 22 %; MCH 35.7 pg (25.0-35.0); MCHC 32.6 g/dL (31.0-37.0); MCV 109.5 fL (80.0-100.0); Macrocytosis Marked; Mean Platelet Volume 7.7; Monocytes # (A) 0.4 k/uL (0-1.0); Monocytes % (A) 4 %; Neutrophils # (A) 5.7 k/uL (1.3-7.7); Neutrophils % (A) 67 %; Platelet Count 510 k/uL (150-450); RBC 3.58 m/uL (3.80-5.40); RDW 12.9 % (11.5-15.5); WBC 8.5 k/uL (3.8-10.6)
[2020-03-20 07:24] LABS: African American GFR (CKD) >90 (>60 ml/min/1.73 sqM); Anion Gap 5 mmol/L; Blood Urea Nitrogen <2 mg/dL (7-17); Calcium 8.8 mg/dL (8.4-10.2); Carbon Dioxide 28 mmol/L (22-30); Chloride 101 mmol/L (98-107); Glucose 110 mg/dL (74-99); Non-African American GFR(CKD) >90 (>60 ml/min/1.73 sqM); Potassium 4.2 mmol/L (3.5-5.1); Sodium 134 mmol/L (137-145)
[2020-03-20] MEDS: ALBUTEROL NEBULIZED 2.5 MG/3 ML INHALATION SCH ×4 (07:51→20:09)
[2020-03-20] MEDS: amLODIPine 10 MG TAB PO SCH (08:04)
[2020-03-20] MEDS: ALVIMOPAN 12 MG CAPSULE PO SCH ×2 (08:04→19:58)
[2020-03-20] MEDS: METOPROLOL TARTRATE 25 MG TAB PO SCH (08:04)
[2020-03-20] MEDS: NICOTINE 14MG/24HR PATCH TRANSDERM SCH (08:04)
[2020-03-20] MEDS: LOSARTAN 50 MG TAB PO SCH (08:04)
[2020-03-20] MEDS: HEPARIN SODIUM,PORCINE 5,000 UNIT/ML 1 ML VIAL SQ SCH ×2 (08:05→19:58)
[2020-03-20] MEDS: PANTOPRAZOLE 40 MG/10 ML VIAL IVP SCH ×2 (08:05→19:57)
[2020-03-20] MEDS: FAMOTIDINE 20 MG/2 ML VIAL IV SCH ×2 (08:05→19:58)
[2020-03-20] MEDS: ONDANSETRON 4 MG/2 ML VIAL IVP PRN (09:44)
--- NOTE | 2020-03-20 11:39 | P.PN ---
Progress Note - Text Progress Note Date: 03/20/20 The patient's postoperative day 3 from sigmoid colectomy and low anterior resection. She has some complaints of incisional pain last night. On exam her vital signs are stable. Abdomen soft. Incision sites clean dry tach. Patient will remain on full liquids. Will have her Berrios and epidural catheter removed today.
--- NOTE | 2020-03-20 18:40 | P.PN ---
Progress Note - Text 03/20 [id number] 49-year-old female status post low anterior resection by Dr. salcedo. Patient has an epidural catheter for postop pain control with the solution running at 9 mL an hour. Epidural was DC'd as per the surgeon's orders. Patient doing well,ambulating well
--- NOTE | 2020-03-20 20:11 | PN ---
PROGRESS NOTE DATE OF SERVICE: 03/20/2020 This 49-year-old woman who was admitted with possible abdominal pain and acute ascending colitis also had sigmoid stricture. Patient had surgery. The patient being closely monitored. No chest pain or palpitation. Complains of severe pain. PHYSICAL EXAMINATION: Alert and oriented x3. Pulse 80. Blood pressure 143/85, respirations 16, temp 98.7, pulse ox 93 percent on room air. HEENT: Conjunctivae normal. NECK: No JVD. CARDIOVASCULAR: S1, S2. RESPIRATORY SYSTEM: Breath sounds diminished at the bases. No rhonchi. No crackles. ABDOMEN soft, status post surgery. LEGS are no edema. No swelling. NERVOUS SYSTEM: No focal deficits. LABS: WBC 8.2, hemoglobin 12.8, sodium 135. ASSESSMENT: 1. Acute sigmoid stricture status post low anterior resection. 2. Sigmoid stricture, possibly secondary to diverticulitis. 3. Possible acute abdominal pain with acute descending colitis. 4. Dehydration, present on admission. 5. Hypertension. 6. Abdominal pain with possible acute gastritis. 7. History of hypomagnesemia. 8. Hyponatremia. 9. Hypokalemia. 10.Increased MCV. 11.FULL CODE. RECOMMENDATIONS AND DISCUSSION: In this 49-year-old woman who presented with multiple medical issues, at this time, I recommend continue the current management and symptomatic treatment. Otherwise pain management. Closely follow surgery. Guarded prognosis. Further recommendations to follow. MMADELINEL / KANDY: [id number] /
[2020-03-21] MEDS: HYDROmorphone 1 MG/ML 1 ML SYRINGE IVP PRN ×7 (02:09→21:20)
[2020-03-21] MEDS: D5-0.45% NACL WITH KCL 20MEQ/L 1,000 ML IV SCH ×2 (05:34→16:26)
--- NOTE | 2020-03-21 09:20 | P.PN ---
Progress Note - Text Progress Note Date: 03/21/20 The patient is feeling slightly better. She still has some incisional pain. She's had flatus and a small bowel movement. On exam her vital signs are stable. Abdomen soft. Incisions are clean dry intact. Patient liver diet advanced.
[2020-03-21] MEDS: ALVIMOPAN 12 MG CAPSULE PO SCH ×2 (10:09→19:58)
[2020-03-21] MEDS: NICOTINE 14MG/24HR PATCH TRANSDERM SCH (10:09)
[2020-03-21] MEDS: FAMOTIDINE 20 MG/2 ML VIAL IV SCH ×2 (10:09→19:59)
[2020-03-21] MEDS: LOSARTAN 50 MG TAB PO SCH (10:09)
[2020-03-21] MEDS: HEPARIN SODIUM,PORCINE 5,000 UNIT/ML 1 ML VIAL SQ SCH ×2 (10:09→19:59)
[2020-03-21] MEDS: PANTOPRAZOLE 40 MG/10 ML VIAL IVP SCH ×2 (10:09→20:00)
[2020-03-21] MEDS: amLODIPine 10 MG TAB PO SCH (10:09)
[2020-03-21] MEDS: METOPROLOL TARTRATE 25 MG TAB PO SCH (10:10)
[2020-03-21] MEDS: ALBUTEROL NEBULIZED 2.5 MG/3 ML INHALATION SCH ×4 (10:45→21:24)
[2020-03-21] MEDS: ONDANSETRON 4 MG/2 ML VIAL IVP PRN (12:11)
--- NOTE | 2020-03-21 22:58 | PN ---
PROGRESS NOTE DATE OF SERVICE: 03/21/2020 This 49-year-old woman who was admitted with sigmoid stricture had low anterior resection. Patient complaining of severe pain. Dr. Alves has increased the pain medication. Biopsy reports are pending at this time. No chest pain. No palpitations. No fever. PHYSICAL EXAMINATION: On exam, alert and oriented x3. Pulse 70, blood pressure 119/80, respiration 17, temperature 98.3, pulse ox 94% on room air. HEENT: Conjunctivae normal NECK: No jugular venous distention. CARDIOVASCULAR: S1, S2 muffled. RESPIRATORY: Breath sounds are diminished at the bases. No rhonchi, no crackles. ABDOMEN: Soft. Status post surgery. Significant tenderness. No guarding or rigidity. Bowel sounds present. LEGS: No edema, no swelling. NERVOUS SYSTEM: No focal deficits. LABS: WBC 8.5, and MCV 109. Sodium 134. ASSESSMENT: 1. Sigmoid stricture, status post low anterior resection. 2. Possibly secondary to diverticulitis. 3. Severe postoperative pain. 4. Possible acute abdominal pain, acute descending colitis, present on admission. 5. Dehydration, present on admission. 6. Hypertension. 7. Abdominal pain with possible acute gastritis. 8. Hypomagnesemia. 9. Hyponatremia. 10.Hypokalemia. 11.Increased MCV. 12.FULL CODE. RECOMMENDATIONS AND DISCUSSION: Continue current medications. Continue symptomatic treatment. Continue pain medications, DVT prevention, incentive spirometry. Closely follow with Dr. Alves. Guarded prognosis. The patient is stable. Further recommendations to follow. MMODL / IJN: [id number] /
[2020-03-22] MEDS: HYDROmorphone 1 MG/ML 1 ML SYRINGE IVP PRN ×2 (00:34→08:07)
[2020-03-22] MEDS: D5-0.45% NACL WITH KCL 20MEQ/L 1,000 ML IV SCH ×3 (00:34→14:18)
[2020-03-22] MEDS: ALBUTEROL NEBULIZED 2.5 MG/3 ML INHALATION SCH ×4 (07:42→20:30)
[2020-03-22] MEDS: PANTOPRAZOLE 40 MG/10 ML VIAL IVP SCH (07:52)
[2020-03-22] MEDS: ALVIMOPAN 12 MG CAPSULE PO SCH ×2 (07:53→20:28)
[2020-03-22] MEDS: HEPARIN SODIUM,PORCINE 5,000 UNIT/ML 1 ML VIAL SQ SCH ×2 (07:53→20:28)
[2020-03-22] MEDS: LOSARTAN 50 MG TAB PO SCH (07:53)
[2020-03-22] MEDS: FAMOTIDINE 20 MG/2 ML VIAL IV SCH (07:53)
[2020-03-22] MEDS: METOPROLOL TARTRATE 25 MG TAB PO SCH (07:53)
[2020-03-22] MEDS: NICOTINE 14MG/24HR PATCH TRANSDERM SCH (07:53)
[2020-03-22] MEDS: amLODIPine 10 MG TAB PO SCH (07:53)
[2020-03-22] MEDS: HYDROcodone/APAP 7.5-325MG 1 EACH TAB PO PRN ×2 (10:52→18:53)
[2020-03-22] MEDS: HYDROmorphone 0.5 MG/0.5 ML SYRINGE IVP PRN ×2 (12:23→16:33)
--- NOTE | 2020-03-22 15:45 | P.PN ---
Progress Note - Text Progress Note Date: 03/22/20 Patient is a well. Her epidural was discontinued. On exam vessels are stable. Abdomen soft. Incisions clean and intact. Patient will have her diet advanced. We dissected discharged home hopefully tomorrow.
[2020-03-22] MEDS: PANTOPRAZOLE 40 MG TABLET PO SCH (20:28)
[2020-03-22] MEDS: ACETAMINOPHEN TAB 325 MG TAB PO PRN (20:36)
[2020-03-22] MEDS: ONDANSETRON 4 MG/2 ML VIAL IVP PRN (22:30)
[2020-03-23] MEDS: D5-0.45% NACL WITH KCL 20MEQ/L 1,000 ML IV SCH ×3 (01:54→16:00)
--- NOTE | 2020-03-23 05:49 | P.PN ---
Subjective Progress Note Date: 03/22/20 Principal diagnosis: This is a 49 year old female who was admitted with sigmoid stricture and underwent lower anterior resection and is being closely monitored. Surgery following closely. Patient continues to have abdominal discomfort. Patient states she is passing gas but has not had a bowel movement. Patient's diet has been advanced but has not had much of an appetite. Patient continues to request pain medication per staff and is eating very little. Encouraged patient to inc rease oral intake and increase activity as tolerated. Patient abdominal incision is dry and intact. Biopsy reports remain pending at this time. Review of systems: Constitutional: Reports generalized fatigue, no reports of fevers or chills Cardiovascular: No reports of chest pain or palpitations Respiratory: No reports of shortness of breath, occasional cough GI: no reports of nausea or vomiting : no reports of dysuria or retention Neurovascular: no reports of weakness or numbness Active Medications Acetaminophen (Tylenol Tab) 650 mg PO Q6HR PRN PRN Reason: Mild Pain or Fever > 100.5 Last Admin: 03/22/20 20:36 Dose: 650 mg Documented by: Hydrocodone Bitart/Acetaminophen ([place] 7.5-325) 1 each PO Q6H PRN PRN Reason: Pain Last Admin: 03/22/20 18:53 Dose: 1 each Documented by: Albuterol Sulfate (Ventolin Nebulized) 2.5 mg INHALATION RT-QID [facility] Last Admin: 03/22/20 20:30 Dose: Not Given Documented by: Albuterol Sulfate (Ventolin Hfa Inhaler) 1 - 2 puff INHALATION RT-Q4H PRN PRN Reason: Shortness Of Breath Alprazolam (Xanax) 0.25 mg PO TID PRN PRN Reason: Anxiety Last Admin: 03/20/20 06:31 Dose: 0.25 mg Documented by: Alvimopan (Entereg) 12 mg PO BID [facility] Stop: 03/24/20 09:01 Last Admin: 03/22/20 20:28 Dose: 12 mg Documented by: Amlodipine Besylate (Norvasc) 10 mg PO DAILY [facility] Last Admin: 03/22/20 07:53 Dose: 10 mg Documented by: Benzocaine/Menthol (Cepacol Lozenge) 1 each MUCOUS MEM Q1HR PRN PRN Reason: Sore Throat Diphenhydramine HCl (Benadryl) 50 mg IVP Q6HR PRN PRN Reason: Itching Last Admin: 03/19/20 22:08 Dose: 50 mg Documented by: Heparin Sodium (Porcine) (Heparin) 5,000 unit SQ Q12HR [facility] Last Admin: 03/22/20 20:28 Dose: 5,000 unit Documented by: Hydralazine HCl (Apresoline) 25 mg PO Q8HR PRN PRN Reason: Hypertension Last Admin: 03/16/20 03:31 Dose: 25 mg Documented by: Hydromorphone HCl (Dilaudid) 0.5 mg IVP Q3HR PRN PRN Reason: Moderate Pain Last Admin: 03/22/20 16:33 Dose: 0.5 mg Documented by: Hydromorphone HCl (Dilaudid) 2 mg IVP Q3HR PRN PRN Reason: Severe Pain Last Admin: 03/22/20 08:07 Dose: 2 mg Documented by: Potassium Chloride/Dextrose/Sod Cl (D5%-1/2ns-Kcl 20 Meq/L Iv Solution) 1,000 mls @ 125 mls/hr IV .Q8H [facility] Last Admin: 03/23/20 01:54 Dose: Not Given Documented by: Losartan Potassium (Cozaar) 100 mg PO DAILY [facility] Last Admin: 03/22/20 07:53 Dose: 100 mg Documented by: Metoclopramide HCl (Reglan) 10 mg IVP Q6HR PRN PRN Reason: Nausea and Vomiting Metoprolol Tartrate (Lopressor) 25 mg PO DAILY [facility] Last Admin: 03/22/20 07:53 Dose: 25 mg Documented by: Miscellaneous Information (Potassium Per Protocol) 1 each MISCELLANE DAILY PRN; Protocol PRN Reason: Per Protocol Miscellaneous Information (Potassium Per Protocol) 1 each MISCELLANE DAILY PRN; Protocol PRN Reason: Per Protocol Miscellaneous Information (Potassium Per Protocol) 1 each MISCELLANE DAILY PRN; Protocol PRN Reason: Per Protocol Miscellaneous Information (Magnesium Per Protocol) 1 each MISCELLANE DAILY PRN; Protocol PRN Reason: Per Protocol Miscellaneous Information (Potassium Per Protocol) 1 each MISCELLANE DAILY PRN; Protocol PRN Reason: Per Protocol Morphine Sulfate (Morphine Sulfate (Inj)) 4 mg IV Q4HR PRN PRN Reason: Severe Pain Naloxone HCl (Narcan) 0.2 mg IV Q2M PRN PRN Reason: Opioid Reversal Nicotine (Habitrol 14mg/24hr Patch) 1 patch TRANSDERM DAILY [facility] Last Admin: 03/22/20 07:53 Dose: 1 patch Documented by: Ondansetron HCl (Zofran) 4 mg IVP Q8HR PRN PRN Reason: Nausea And Vomiting Last Admin: 03/22/20 22:30 Dose: 4 mg Documented by: Pantoprazole Sodium (Protonix) 40 mg PO BID [facility] Last Admin: 03/22/20 20:28 Dose: 40 mg Documented by: Objective - Vital Signs Vital signs: Vital Signs Temp 98.8 F 03/22/20 09:00 Pulse 79 03/22/20 09:00 Resp 16 03/22/20 09:00 BP 116/76 03/22/20 09:00 Pulse Ox 91 L 03/22/20 09:00 Intake & Output 03/21/20 03/22/20 03/22/20 18:59 06:59 18:59 Weight 74.3 kg Other: Voiding Method Indwelling Catheter # Voids 2 - Exam Gen: This is a 49-year-old female lying in bed, alert and oriented 3, well- developed, well-nourished. Temp is 98.8F, pulse is 79, respirations are 16, blood pressure is 116/76, oxygen saturation is 91% on room air. HEENT: Head is atraumatic, normocephalic. Pupils equal, round. Sclerae is anicteric. NECK: Supple. No JVD. No lymphadenopathy. No thyromegaly. LUNGS: Diminished breath sounds at the bases with no wheezing or rhonchi noted. No intercostal retractions. HEART: S1, S2 are muffled ABDOMEN: Soft. bowel sounds noted. No masses. Mild tenderness noted upon palpation. Midline surgical dressing is dry and intact EXTREMITIES: No pedal edema. No calf tenderness. NEUROLOGICAL: Patient is awake, alert and oriented x3. Cranial nerves 2 through 12 are grossly intact. - Labs CBC & Chem 7: 03/20/20 06:41 03/20/20 06:41 Assessment and Plan Assessment: Sigmoid stricture, status post low anterior resection, possibly secondary to diverticulitis Severe postoperative pain Possible acute abdominal pain, acute ascending colitis, present on admission Dehydration, present on admission hypertension Abdominal pain with possible acute gastritis Hypomagnesemia Hyponatremia Hypokalemia Increased MCV Full code Recommendations and discussion: Recommend to continue with current medications, management, and symptomatic treatment. Patient underwent low anterior resection with surgery due to diverticular stricture. Patient is currently on regular diet and tolerating although continues to have no bowel movement. Patient is passing gas. Instructed the patient to continue using incentive spirometer at least 10 times every hour while awake. Encouraged patient to increase oral intake. Surgery following closely. Will repeat a.m. labs. Further recommendations to follow. Possible discharge in 24-48 hours.
[2020-03-23 07:03] LABS: African American GFR (CKD) >90 (>60 ml/min/1.73 sqM); Anion Gap 5 mmol/L; Blood Urea Nitrogen 8 mg/dL (7-17); Calcium 9.3 mg/dL (8.4-10.2); Carbon Dioxide 28 mmol/L (22-30); Chloride 101 mmol/L (98-107); Glucose 106 mg/dL (74-99); Magnesium 1.6 mg/dL (1.6-2.3); Non-African American GFR(CKD) >90 (>60 ml/min/1.73 sqM); Potassium 4.7 mmol/L (3.5-5.1); Sodium 134 mmol/L (137-145)
[2020-03-23 08:10] LABS: Basophils % (A) 0 %; Eosinophils # (A) 0.2 k/uL (0-0.7); Eosinophils % (A) 3 %; HCT 37.6 % (34.0-46.0); Lymphocytes % (A) 13 %; MCH 34.6 pg (25.0-35.0); MCHC 31.9 g/dL (31.0-37.0); MCV 108.7 fL (80.0-100.0); Macrocytosis Moderate; Mean Platelet Volume 9.6; Monocytes # (A) 0.5 k/uL (0-1.0); Monocytes % (A) 7 %; Neutrophils # (A) 6.1 k/uL (1.3-7.7); Neutrophils % (A) 75 %; Platelet Count 526 k/uL (150-450); RBC 3.46 m/uL (3.80-5.40); RDW 12.7 % (11.5-15.5); WBC 8.1 k/uL (3.8-10.6)
[2020-03-23] MEDS: ALBUTEROL NEBULIZED 2.5 MG/3 ML INHALATION SCH ×4 (09:19→19:20)
[2020-03-23] MEDS: NICOTINE 14MG/24HR PATCH TRANSDERM SCH (10:05)
[2020-03-23] MEDS: HYDROcodone/APAP 7.5-325MG 1 EACH TAB PO PRN ×2 (10:05→22:30)
[2020-03-23] MEDS: HEPARIN SODIUM,PORCINE 5,000 UNIT/ML 1 ML VIAL SQ SCH ×2 (10:05→21:24)
[2020-03-23] MEDS: LOSARTAN 50 MG TAB PO SCH (10:06)
[2020-03-23] MEDS: PANTOPRAZOLE 40 MG TABLET PO SCH ×2 (10:07→21:24)
[2020-03-23] MEDS: amLODIPine 10 MG TAB PO SCH (10:07)
[2020-03-23] MEDS: ALVIMOPAN 12 MG CAPSULE PO SCH ×2 (10:07→21:24)
--- NOTE | 2020-03-23 10:16 | P.PN ---
Progress Note - Text Progress Note Date: 03/23/20 The patient is feeling slightly better. She still has significant pain. On exam her vital signs are stable. Abdomen soft. Incision is clean dry tach. Status post low anterior resection for presumed diverticular stricture. Patient will be observed today. We've this for discharge home tomorrow.
[2020-03-23] MEDS: METOPROLOL TARTRATE 25 MG TAB PO SCH (10:17)
--- NOTE | 2020-03-23 12:55 | P.PN ---
Progress Note - Text Progress Note Date: 03/23/20 The patient's incision was examined. There was some mild cellulitis noted. 2 jo-ann removed from the midportion of the incision there was no significant drainage. Patient will be placed on IV antibiotics for some cellulitis of the incision.
[2020-03-23] MEDS: HYDROmorphone 1 MG/ML 1 ML SYRINGE IVP PRN ×3 (13:44→22:02)
--- NOTE | 2020-03-23 15:59 | P.PN ---
Subjective Progress Note Date: 03/23/20 Principal diagnosis: This is a 49 year old female who was admitted with sigmoid stricture and underwent lower anterior resection and is being closely monitored. Surgery following closely. Patient continues to have abdominal discomfort. Patient states she is passing gas but has not had a bowel movement. Patient's diet has been advanced but has not had much of an appetite. Patient continues to request pain medication per staff and is eating very little. Encouraged patient to inc rease oral intake and increase activity as tolerated. Patient abdominal incision is dry and intact. Biopsy reports remain pending at this time. Review of systems: Constitutional: Reports generalized fatigue, no reports of fevers or chills Cardiovascular: No reports of chest pain or palpitations Respiratory: No reports of shortness of breath, occasional cough GI: no reports of nausea or vomiting : no reports of dysuria or retention Neurovascular: no reports of weakness or numbness 03/23/2020 She was seen and evaluated in follow-up and continues to have severe abdominal discomfort located at the incision site. Dressing was removed and replaced and was seen by surgery with 2 jo-ann removed. Slight erythema noted at the surgical site and patient will be initiated on IV Zosyn. A wound culture was obtained. Patient has increased oral intake and continues to have a lot of gas but denies any bowel movements at this time. Patient's activity has been advanced also and has been up and walking the hallways. Patient denies any nausea or vomiting. No reports of chest pain, shortness of breath, or palpitations. Sodium today is 134 and potassium is 4.7. Objective - Vital Signs Vital signs: Vital Signs Temp 98.3 F 03/23/20 15:00 Pulse 79 03/23/20 15:00 Resp 18 03/23/20 15:00 BP 114/72 03/23/20 15:00 Pulse Ox 93 L 03/23/20 15:00 Intake & Output 03/22/20 03/23/20 03/23/20 18:59 06:59 18:59 Weight 74.3 kg Other: Voiding Method Indwelling Catheter # Voids 2 - Exam Gen: This is a 49-year-old female sitting up in bed, alert and oriented 3, well-developed, well-nourished. HEENT: Head is atraumatic, normocephalic. Pupils equal, round. Sclerae is anicteric. NECK: Supple. No JVD. No lymphadenopathy. No thyromegaly. LUNGS: Diminished breath sounds at the bases with no wheezing or rhonchi noted. No intercostal retractions. HEART: S1, S2 are muffled ABDOMEN: Soft. bowel sounds noted. No masses. tenderness noted upon palpation at the surgical site. Midline surgical dressing has been changed with small amounts of erythema noted at the surgical incision site. 2 jo-ann removed by surgery today. EXTREMITIES: No pedal edema. No calf tenderness. NEUROLOGICAL: Patient is awake, alert and oriented x3. Cranial nerves 2 through 12 are grossly intact. - Labs CBC & Chem 7: 03/23/20 06:31 03/23/20 06:31 Labs: Abnormal Lab Results - Last 24 Hours (Table) 03/23/20 03/23/20 Range/Units : 06:31 RBC 3.46 L (3.80-5.40) m/uL MCV 108.7 H (80.0-100.0) fL Plt Count 526 H (150-450) k/uL Sodium 134 L (137-145) mmol/L Glucose 106 H (74-99) mg/dL Assessment and Plan Assessment: Sigmoid stricture, status post low anterior resection, possibly secondary to diverticulitis Severe postoperative pain Possible cellulitis noted at the abdominal midline surgical site Possible acute abdominal pain, acute ascending colitis, present on admission Dehydration, present on admission hypertension Abdominal pain with possible acute gastritis Hypomagnesemia Hyponatremia Hypokalemia Increased MCV Full code Recommendations and discussion: Recommend to continue with current medications, management, and symptomatic treatment. Patient underwent low anterior resection with surgery due to diverticular stricture. Patient is currently on regular diet and tolerating although continues to have no bowel movement. Patient is passing gas. Instructed the patient to continue using incentive spirometer at least 10 times every hour while awake. Encouraged patient to increase oral intake. Increase activity as tolerated. Surgery following closely. Patient was initiated on IV Zosyn. Further recommendations to follow. Possible discharge in 24-48 hours.
[2020-03-23] MEDS: PIPERACILLIN-TAZOBACTAM 3.375 GM in SODIUM CHLORIDE 0.9% 100 ML IVPB SCH ×2 (16:00→23:54)
[2020-03-24] MEDS: ALPRAZolam 0.25 MG TAB PO PRN (00:05)
[2020-03-24] MEDS: D5-0.45% NACL WITH KCL 20MEQ/L 1,000 ML IV SCH ×4 (02:08→23:59)
[2020-03-24] MEDS: METOPROLOL TARTRATE 25 MG TAB PO SCH (08:12)
[2020-03-24] MEDS: NICOTINE 14MG/24HR PATCH TRANSDERM SCH (08:12)
[2020-03-24] MEDS: PANTOPRAZOLE 40 MG TABLET PO SCH ×2 (08:12→20:46)
[2020-03-24] MEDS: HEPARIN SODIUM,PORCINE 5,000 UNIT/ML 1 ML VIAL SQ SCH ×2 (08:12→20:46)
[2020-03-24] MEDS: LOSARTAN 50 MG TAB PO SCH (08:12)
[2020-03-24] MEDS: PIPERACILLIN-TAZOBACTAM 3.375 GM in SODIUM CHLORIDE 0.9% 100 ML IVPB SCH ×3 (08:12→23:58)
[2020-03-24] MEDS: amLODIPine 10 MG TAB PO SCH (08:13)
[2020-03-24] MEDS: ALVIMOPAN 12 MG CAPSULE PO SCH (08:13)
[2020-03-24] MEDS: HYDROcodone/APAP 7.5-325MG 1 EACH TAB PO PRN ×3 (08:13→21:38)
[2020-03-24] MEDS: ALBUTEROL NEBULIZED 2.5 MG/3 ML INHALATION SCH ×4 (09:14→19:33)
--- NOTE | 2020-03-24 09:14 | P.PN ---
Progress Note - Text Progress Note Date: 03/24/20 Patient still is complaints of incisional pain. On exam her vital signs are stable. Abdomen soft. Incision is clean there is decrease inflammation. Patient will most likely discharge home tomorrow. We'll continue supportive care.
[2020-03-24] MEDS: HYDROmorphone 1 MG/ML 1 ML SYRINGE IVP PRN ×3 (09:31→17:03)
--- NOTE | 2020-03-24 15:11 | P.PN ---
Subjective Progress Note Date: 03/24/20 Principal diagnosis: This is a 49 year old female who was admitted with sigmoid stricture and underwent lower anterior resection and is being closely monitored. Surgery following closely. Patient continues to have abdominal discomfort. Patient states she is passing gas but has not had a bowel movement. Patient's diet has been advanced but has not had much of an appetite. Patient continues to request pain medication per staff and is eating very little. Encouraged patient to inc rease oral intake and increase activity as tolerated. Patient abdominal incision is dry and intact. Biopsy reports remain pending at this time. Review of systems: Constitutional: Reports generalized fatigue, no reports of fevers or chills Cardiovascular: No reports of chest pain or palpitations Respiratory: No reports of shortness of breath, occasional cough GI: no reports of nausea or vomiting : no reports of dysuria or retention Neurovascular: no reports of weakness or numbness 03/23/2020 She was seen and evaluated in follow-up and continues to have severe abdominal discomfort located at the incision site. Dressing was removed and replaced and was seen by surgery with 2 jo-ann removed. Slight erythema noted at the surgical site and patient will be initiated on IV Zosyn. A wound culture was obtained. Patient has increased oral intake and continues to have a lot of gas but denies any bowel movements at this time. Patient's activity has been advanced also and has been up and walking the hallways. Patient denies any nausea or vomiting. No reports of chest pain, shortness of breath, or palpitations. Sodium today is 134 and potassium is 4.7. 03/24/2020 Patient is seen today in follow-up and states that the incisional site continues to be extremely tender and had a shower last night and noticed purulent drainage from the area where the jo-ann were removed. Patient is continued on IV Zosyn and will continue at this time. Wound cultures preliminary showing gram-ne gative bacilli. Awaiting finalization. Patient continues to have gas but has no bowel movements at this time. Patient is tolerating diet with no reports of nausea or vomiting noted. Patient states she is very fatigued today. No reports of chest pain, shortness of breath, or palpitations. Surgery is following. Objective - Vital Signs Vital signs: Vital Signs Temp 98.7 F 03/24/20 14:55 Pulse 77 03/24/20 14:55 Resp 17 03/24/20 14:55 BP 104/71 03/24/20 14:55 Pulse Ox 95 03/24/20 14:55 Intake & Output 03/23/20 03/24/20 03/24/20 18:59 06:59 18:59 Other: Voiding Method Toilet - Exam Gen: This is a 49-year-old female sitting up in bed, alert and oriented 3, well-developed, well-nourished. HEENT: Head is atraumatic, normocephalic. Pupils equal, round. Sclerae is anicteric. NECK: Supple. No JVD. No lymphadenopathy. No thyromegaly. LUNGS: Diminished breath sounds at the bases with no wheezing or rhonchi noted. No intercostal retractions. HEART: S1, S2 are muffled ABDOMEN: Soft. bowel sounds noted. No masses. tenderness noted upon palpation at the surgical site. Midline surgical dressing has been changed with small amount of erythema noted at the surgical incision site. Slightly improved yesterday EXTREMITIES: No pedal edema. No calf tenderness. NEUROLOGICAL: Patient is awake, alert and oriented x3. Cranial nerves 2 through 12 are grossly intact. - Labs CBC & Chem 7: 03/23/20 06:31 03/23/20 06:31 Labs: Microbiology - Last 24 Hours (Table) 03/23/20 13:40 Gram Stain - Preliminary Abdomen Wound Culture - Preliminary Gram Neg Bacilli 03/23/20 13:40 Anaerobic Culture - Preliminary Abdomen Assessment and Plan Assessment: Sigmoid stricture, status post low anterior resection, possibly secondary to diverticulitis Severe postoperative pain Possible cellulitis noted at the abdominal midline surgical site, preliminary wound cultures showing gram-negative bacilli. Patient is maintained on Zosyn and will continue at this time Possible acute abdominal pain, acute ascending colitis, present on admission Dehydration, present on admission hypertension Abdominal pain with possible acute gastritis Hypomagnesemia Hyponatremia, improving Hypokalemia, improved Increased MCV Full code Recommendations and discussion: Recommend to continue with current medications, management, and symptomatic tr eatment. Patient underwent low anterior resection with surgery due to diverticular stricture. Patient is currently on regular diet and tolerating although continues to have no bowel movement. Patient is passing gas. Instructed the patient to continue using incentive spirometer at least 10 times every hour while awake. Encouraged patient to increase oral intake. Increase activity as tolerated. Surgery following closely. Patient was initiated on IV Zosyn. Preliminary wound cultures of the abdominal incision site showing gram- negative bacilli. Will await finalization. Further recommendations to follow. Possible discharge in 24-48 hours.
[2020-03-25] MEDS: HYDROcodone/APAP 7.5-325MG 1 EACH TAB PO PRN ×2 (04:45→10:32)
[2020-03-25 07:59] VITALS: BP 133/89; PULSE 77; RESP 17; TEMP 98.2
[2020-03-25] MEDS: amLODIPine 10 MG TAB PO SCH (08:40)
[2020-03-25] MEDS: PIPERACILLIN-TAZOBACTAM 3.375 GM in SODIUM CHLORIDE 0.9% 100 ML IVPB SCH (08:40)
[2020-03-25] MEDS: NICOTINE 14MG/24HR PATCH TRANSDERM SCH (08:40)
[2020-03-25] MEDS: PANTOPRAZOLE 40 MG TABLET PO SCH (08:40)
[2020-03-25] MEDS: METOPROLOL TARTRATE 25 MG TAB PO SCH (08:40)
[2020-03-25] MEDS: LOSARTAN 50 MG TAB PO SCH (08:40)
[2020-03-25] MEDS: D5-0.45% NACL WITH KCL 20MEQ/L 1,000 ML IV SCH (08:41)
[2020-03-25] MEDS: HEPARIN SODIUM,PORCINE 5,000 UNIT/ML 1 ML VIAL SQ SCH (08:41)
[2020-03-25] MEDS: ALBUTEROL NEBULIZED 2.5 MG/3 ML INHALATION SCH ×2 (09:00→12:18)
--- NOTE | 2020-03-25 10:50 | P.DS ---
Providers Date of admission: 03/11/20 08:43 Expected date of discharge: 03/25/20 Attending physician: Otilia Mcgee Consults: 03/10/20 12:06 Consult Physician Urgent Consulting Provider: Jairon Alves Consult Reason/Comments: constipation with n/v and abd pain Do you want consulting provider notified?: Yes Primary care physician: Mireille Chan Hospital Course: This a 49-year-old female who is minimal hospital complaints of constipation. Patient's workup found have evidence of diverticular stricture. Patient underwent low anterior resection. Please see hospital chart for details. Patient Condition at Discharge: Good Plan - Discharge Summary Discharge Rx Participant: No New Discharge Prescriptions: New Docusate [Colace] 100 mg PO BID #20 capsule Levofloxacin [Levaquin] 500 mg PO DAILY 7 Days #7 tab HYDROcodone/APAP 5-325MG [[place] 5-325] 1 tab PO Q6HR PRN #10 tab PRN Reason: Pain No Action Metoprolol Tartrate [Lopressor] 25 mg PO DAILY Losartan/Hydrochlorothiazide [Losartan-Hctz 100-25 mg Tab] 1 tab PO DAILY Albuterol Inhaler [Ventolin Hfa Inhaler] 1 - 2 puff INHALATION RT-Q4H PRN PRN Reason: Shortness Of Breath Amoxicillin/Potassium Clav [Augmentin 875-125 Tablet] 1 tab PO Q12HR #20 tab Docusate [Colace] 100 mg PO BID #14 capsule Ondansetron Odt [Zofran Odt] 4 mg PO Q8HR PRN #10 tab PRN Reason: Nausea Discharge Medication List Albuterol Inhaler [Ventolin Hfa Inhaler] 1 - 2 puff INHALATION RT-Q4H PRN 03/08/20 [History] Amoxicillin/Potassium Clav [Augmentin 875-125 Tablet] 1 tab PO Q12HR #20 tab 03/08/20 [Rx] Docusate [Colace] 100 mg PO BID #14 capsule 03/08/20 [Rx] Losartan/Hydrochlorothiazide [Losartan-Hctz 100-25 mg Tab] 1 tab PO DAILY 03/08/20 [History] Metoprolol Tartrate [Lopressor] 25 mg PO DAILY 03/08/20 [History] Ondansetron Odt [Zofran Odt] 4 mg PO Q8HR PRN #10 tab 03/08/20 [Rx] Docusate [Colace] 100 mg PO BID #20 capsule 03/25/20 [Rx] HYDROcodone/APAP 5-325MG [[place] 5-325] 1 tab PO Q6HR PRN #10 tab 03/25/20 [Rx] Levofloxacin [Levaquin] 500 mg PO DAILY 7 Days #7 tab 03/25/20 [Rx] Follow up Appointment(s)/Referral(s): Mireille Chan DO [Primary Care Provider] - 1-2 days Jairon Alves MD [STAFF PHYSICIAN] - 1 Week Patient Instructions/Handouts: Abdominal Pain (ED) Activity/Diet/Wound Care/Special Instructions: Patient will be admitted *Please call CM for indigent funds at discharge for home meds* Discharge Disposition: HOME SELF-CARE
[2020-03-25] MEDS ORDERED: HYDROcodone/APAP 7.5-325MG 1 EACH TAB PO PRN (10:59)
--- NOTE | 2020-03-26 12:05 | P.DS ---
Providers Date of admission: 03/11/20 08:43 Expected date of discharge: 03/25/20 Attending physician: Otilia Mcgee Consults: 03/10/20 12:06 Consult Physician Urgent Consulting Provider: Jairon Alves Consult Reason/Comments: constipation with n/v and abd pain Do you want consulting provider notified?: Yes Primary care physician: Mireille Chan Hospital Course: Final diagnosis Sigmoid stricture, status post low anterior resection, possibly secondary to diverticulitis Severe postoperative pain Possible cellulitis noted at the abdominal midline surgical site, with E. coli o n the wound cultures Possible acute abdominal pain, acute ascending colitis, present on admission Dehydration, present on admission hypertension Abdominal pain with possible acute gastritis Hypomagnesemia Hyponatremia, improving Hypokalemia, improved Increased MCV Full code Discharge disposition Patient is being discharged in a stable condition with guarded prognosis to home. Patient will follow-up with Dr. Mireille Chan upon discharge. Patient will also follow-up with surgery in the outpatient setting for results. Patient will continue with a short course of oral antibiotics in the form of Levaquin 500 mg daily for the next 7 days. Total time taken is 35 minutes. History of present illness This is an 49-year-old female who was recently admitted with sigmoid stricture and was being closely monitored. Patient was seen and evaluated by surgery and underwent low anterior resection. Patient continued to have some abdominal discomfort at the surgical incision site and cultures were taken and finalized showing E. coli with sensitivity to Levaquin. Patient will continue with Levaquin 500 mg daily for the next 1 week. Patient also continues to have some abdominal discomfort although is passing gas and having bowel movements at this time. Patient states her discomfort is with position changes and coughing. Patient instructed to follow-up with her primary care provider along with surgery as scheduled upon discharge. Currently no reports of chest pain, shortness of breath, or palpitations. Patient is afebrile. No reports of nausea or vomiting and patient is tolerating diet. On exam vital signs are stable. Temp is 98.2F, pulse is 77, respirations are 17, blood pressure is 133/89, oxygen saturation is 94% on room air. Cardio S1, S2 are muffled. Respiratory shows diminished breath sounds at the bases with no wheezing or rhonchi noted. Abdomen is soft and mildly tender. Nervous system shows no focal deficits. Please refer to medication reconciliation sheet for a list of medications. Patient Condition at Discharge: Good Plan - Discharge Summary Discharge Rx Participant: No New Discharge Prescriptions: New Docusate [Colace] 100 mg PO BID #20 capsule HYDROcodone/APAP 5-325MG [[place] 5-325] 1 tab PO Q6HR PRN #10 tab PRN Reason: Pain Losartan [Cozaar] 100 mg PO DAILY 30 Days #30 tab amLODIPine [Norvasc] 10 mg PO DAILY 30 Days #30 tab traMADol HCL [Ultram] 50 mg PO Q4HR PRN 3 Days #18 tab PRN Reason: Pain Levofloxacin [Levaquin] 500 mg PO DAILY 7 Days #7 tab Continue Metoprolol Tartrate [Lopressor] 25 mg PO DAILY Albuterol Inhaler [Ventolin Hfa Inhaler] 1 - 2 puff INHALATION RT-Q4H PRN PRN Reason: Shortness Of Breath Docusate [Colace] 100 mg PO BID #14 capsule Ondansetron Odt [Zofran ODT] 4 mg PO Q8HR PRN #10 tab PRN Reason: Nausea Discontinued Losartan/Hydrochlorothiazide [Losartan-Hctz 100-25 mg Tab] 1 tab PO DAILY Amoxicillin/Potassium Clav [Augmentin 875-125 Tablet] 1 tab PO Q12HR #20 tab Discharge Medication List Albuterol Inhaler [Ventolin Hfa Inhaler] 1 - 2 puff INHALATION RT-Q4H PRN 03/08/20 [History] Docusate [Colace] 100 mg PO BID #14 capsule 03/08/20 [Rx] Metoprolol Tartrate [Lopressor] 25 mg PO DAILY 03/08/20 [History] Ondansetron Odt [Zofran ODT] 4 mg PO Q8HR PRN #10 tab 03/08/20 [Rx] Docusate [Colace] 100 mg PO BID #20 capsule 03/25/20 [Rx] HYDROcodone/APAP 5-325MG [[place] 5-325] 1 tab PO Q6HR PRN #10 tab 03/25/20 [Rx] Levofloxacin [Levaquin] 500 mg PO DAILY 7 Days #7 tab 03/25/20 [Rx] Losartan [Cozaar] 100 mg PO DAILY 30 Days #30 tab 03/25/20 [Rx] amLODIPine [Norvasc] 10 mg PO DAILY 30 Days #30 tab 03/25/20 [Rx] traMADol HCL [Ultram] 50 mg PO Q4HR PRN 3 Days #18 tab 03/25/20 [Rx] Follow up Appointment(s)/Referral(s): Mireille Chan DO [Primary Care Provider] - 03/29/20 1:30 pm Jairon Alves MD [STAFF PHYSICIAN] - 04/01/20 2:45 pm Patient Instructions/Handouts: Bowel Resection (DC), Abdominal Pain (ED) Activity/Diet/Wound Care/Special Instructions: Patient is to take Levaquin for one week on discharge Activity Limited until follow-up Continue current diet Follow-up with primary care provider upon discharge Follow-up with surgery in the outpatient setting Continue with antibiotics until finished Levaquin 500mg daily for 7 days Discharge Disposition: HOME SELF-CARE
--- NOTE | 2020-03-29 03:55 | CDI ---
Documentation Clarification Form Date: 03/29/2020 From: Sterling Iverson Phone: If you have a question about this query, please contact Mary Gibson, Window Trimmer Apprentice at [phone] between 8am and 5pm. Admit Date: 03/11/2020 Discharge Date:03/25/2020 Patient Name: Lizzie Márquez Visit Number: [id number] ATTENTION: The Clinical Documentation Specialists (CDI) and [facility] Coding Staff appreciate your assistance in clarifying documentation. Please respond to the clarification below the line at the bottom and electronically sign. The CDI & [facility] Coding staff will review the response and follow-up if needed. Please note: Queries are made part of the Legal Health Record. If you have any questions, please contact the author of this message via ITS. Dear Jairon Do., The final diagnosis of the pathology report states: Diverticulosis with diverticulitis.Regional mucosal ulceration consistent with ischemic colitis.Proximal and distal margins of resection - positive for ulcerated/inflamed mucosa. Documentation states:Sigmoid stricture, status post low anterior resection, possibly secondary to diverticulitis Patient history/risk factors: Diverticular Obstruction, Hyponatremia. Treatment:Low anterior section(Sigmoid excision) In your professional opinion, do you agree with the pathology report specifying SIGMOID COLON as ulceration consistent with Acute ischemic colitis? Yes No Other (please specify) Unable to determine Unable to determine MTDD
== END 2020-03-25 14:46 | disposition home or self-care (01) | DRG 330 ==
LOC: EC 15:15 → 6PED 20:18 → OBSVTOIN 03-11 08:43 → 6PED 03-15 15:18 → 4SSUR 03-17 15:43
PROVIDERS: ADMIT Hospitalist; ATTEND Hospitalist
PROC: 0DJD8ZZ Inspection of Lower Intestinal Tract, Via Natural or Artificial Opening Endoscopic (ICD-10-PCS; 2020-03-15)
PROC: 0DTN0ZZ Resection of Sigmoid Colon, Open Approach (ICD-10-PCS; principal; 2020-03-17 14:30)
DX: K57.32 Diverticulitis of large intestine without perforation or abscess without bleeding (principal); K56.699 Other intestinal obstruction unspecified as to partial versus complete obstruction; E87.1 Hypo-osmolality and hyponatremia; L03.311 Cellulitis of abdominal wall; T81.41XA Infection following a procedure, superficial incisional surgical site, initial encounter; G89.18 Other acute postprocedural pain; I10 Essential (primary) hypertension; E83.42 Hypomagnesemia; E86.0 Dehydration; E87.6 Hypokalemia; K52.9 Noninfective gastroenteritis and colitis, unspecified; F17.210 Nicotine dependence, cigarettes, uncomplicated; L29.9 Pruritus, unspecified; B96.20 Unspecified Escherichia coli [E. coli] as the cause of diseases classified elsewhere; Z11.59 Encounter for screening for other viral diseases; Z79.899 Other long term (current) drug therapy; Z88.1 Allergy status to other antibiotic agents; Z88.2 Allergy status to sulfonamides; Z88.8 Allergy status to other drugs, medicaments and biological substances; Z98.890 Other specified postprocedural states; Z82.49 Family history of ischemic heart disease and other diseases of the circulatory system; Z83.3 Family history of diabetes mellitus
CPT/HCPCS: 36415; 45378; 74019; 74270; 80048; 80053; 81001; 83630; 83690; 83735; 84132; 84703; 85025; 86850; 86900; 86901; 87045; 87046; 87070; 87075; 87077; 87186; 87205; 88307; 94640; 96361; 96372; 96374; 96375; 96376; 99285

== ENCOUNTER 2020-06-27 02:53 | Emergency (ER) | payer OTHER ==
[2020-06-27] MEDS ORDERED: SODIUM CHLORIDE 0.9% 1,000 ML IV ONE ×2 (04:02→06:06)
[2020-06-27] MEDS ORDERED: ONDANSETRON 4 MG/2 ML VIAL IVP STA (04:03)
--- NOTE | 2020-06-27 04:42 | XR ---
EXAMINATION TYPE: XR chest 2V DATE OF EXAM: 06/27/2020 COMPARISON: 12/15/2013 HISTORY: Syncope TECHNIQUE: FINDINGS: Heart and mediastinum are normal. Lungs are clear. Diaphragm is normal. There are chest etta ds. Bony thorax is intact. IMPRESSION: Normal chest. No change.
--- NOTE | 2020-06-27 04:53 | CT ---
EXAMINATION TYPE: CT brain yoel mae DATE OF EXAM: 06/27/2020 COMPARISON: None HISTORY: passed out, hit head CT DLP: 1362.7 mGycm Automated exposure control for dose reduction was used. There is mild cerebral atrophy. There is no mass effect nor midline shift. There is no sign of intrac ranial hemorrhage. The calvarium appears intact. The skull base is intact. There is normal aeration o f the mastoid sinuses. Cervical vertebra have normal alignment. Posterior elements are intact. There is mild spurring in the facet joints in the mid cervical spine. Disc spaces are fairly normal. Prevertebral soft tissues chano ear normal. I see no bony destructive process. IMPRESSION: Mild cerebral atrophy. No acute intracranial abnormality. Negative CT scan cervical spine. No fracture.
[2020-06-27 04:57] LABS: Basophils % (A) 0 %; Eosinophils # (A) 0.1 k/uL (0-0.7); Eosinophils % (A) 1 %; HCT 48.2 % (34.0-46.0); HGB 15.7 gm/dL (11.4-16.0); Lymphocytes # (A) 1.3 k/uL (1.0-4.8); Lymphocytes % (A) 17 %; MCH 34.7 pg (25.0-35.0); MCHC 32.5 g/dL (31.0-37.0); MCV 106.8 fL (80.0-100.0); Macrocytosis Moderate; Monocytes # (A) 0.3 k/uL (0-1.0); Monocytes % (A) 4 %; Neutrophils # (A) 6.3 k/uL (1.3-7.7); Neutrophils % (A) 78 %; Platelet Count 248 k/uL (150-450); RBC 4.52 m/uL (3.80-5.40); RDW 13.5 % (11.5-15.5); WBC 8.1 k/uL (3.8-10.6)
[2020-06-27 05:13] LABS: Albumin 5.1 g/dL (3.5-5.0); Calcium 10.1 mg/dL (8.4-10.2); Magnesium 1.9 mg/dL (1.6-2.3); Potassium 3.9 mmol/L (3.5-5.1); Total Bilirubin 0.8 mg/dL (0.2-1.3); Total Protein 8.5 g/dL (6.3-8.2)
[2020-06-27 05:46] LABS: INR 0.9 (<1.2); Partial Thromboplastin Time 23.2 sec (22.0-30.0); Prothrombin Time 9.6 sec (9.0-12.0)
--- NOTE | 2020-06-27 07:02 | ED ---
Syncope HPI - General Chief Complaint: Syncope Stated Complaint: Fall Time Seen by Provider: 06/27/20 03:20 Source: patient, EMS Mode of arrival: EMS Limitations: no limitations - History of Present Illness MD Complaint: loss of consciousness Onset/Timin -: hour(s) Prodromal Symptoms: lightheaded Injuries Sustained Associated with Event: Head Current Symptoms: back to baseline Context: standing up Treatments Prior to Arrival: none - Related Data Home Medications Medication Instructions Recorded Confirmed Albuterol Inhaler [Ventolin Hfa 1 - 2 puff INHALATION RT-Q4H PRN 03/08/20 03/09/20 Inhaler] Metoprolol Tartrate [Lopressor] 25 mg PO DAILY 03/08/20 03/09/20 Previous Rx's Medication Instructions Recorded Docusate [Colace] 100 mg PO BID #14 capsule 03/08/20 Ondansetron Odt [Zofran ODT] 4 mg PO Q8HR PRN #10 tab 03/08/20 Docusate [Colace] 100 mg PO BID #20 capsule 03/25/20 HYDROcodone/APAP 5-325MG [[place] 1 tab PO Q6HR PRN #10 tab 03/25/20 5-325] Levofloxacin [Levaquin] 500 mg PO DAILY 7 Days #7 tab 03/25/20 Losartan [Cozaar] 100 mg PO DAILY 30 Days #30 tab 03/25/20 amLODIPine [Norvasc] 10 mg PO DAILY 30 Days #30 tab 03/25/20 traMADol HCL [Ultram] 50 mg PO Q4HR PRN 3 Days #18 tab 03/25/20 Allergies Allergy/AdvReac Type Severity Reaction Status Date / Time bacitracin AdvReac Unknown Verified 06/27/20 03:03 [From Triple Antibiotic] neomycin AdvReac Unknown Verified 06/27/20 03:03 [From Triple Antibiotic] polymyxin B AdvReac Unknown Verified 06/27/20 03:03 [From Triple Antibiotic] sulfamethoxazole AdvReac Nausea & Verified 06/27/20 03:03 [From Bactrim] Vomiting trimethoprim [From Bactrim] AdvReac Nausea & Verified 06/27/20 03:03 Vomiting Review of Systems ROS Statement: Those systems with pertinent positive or pertinent negative responses have been documented in the HPI. ROS Other: All systems not noted in ROS Statement are negative. Constitutional: Denies: fever, chills, weakness Respiratory: Denies: cough, dyspnea Cardiovascular: Denies: chest pain, palpitations, edema, syncope Gastrointestinal: Denies: abdominal pain, nausea, vomiting Genitourinary: Denies: dysuria Musculoskeletal: Denies: back pain Skin: Denies: rash Neurological: Reports: headache. Denies: weakness, numbness, paresthesias Past Medical History Past Medical History: Hypertension History of Any Multi-Drug Resistant Organisms: ESBL Date of last positivie culture/infection: 03/23/20 MDRO Source:: ESBL ABDOMEN Past Surgical History: Hernia Repair Past Psychological History: No Psychological Hx Reported Smoking Status: Current every day smoker Past Alcohol Use History: Occasional Past Drug Use History: None Reported - Past Family History Mother Family Medical History: Diabetes Mellitus, Hypertension Additional Family Medical History / Comment(s): Neropathy General Exam General appearance: alert, in no apparent distress Head exam: Present: normocephalic. Absent: atraumatic Eye exam: Present: normal appearance (Scalp contusion), PERRL, EOMI, nystagmus. Absent: scleral icterus, conjunctival injection ENT exam: Present: normal oropharynx Neck exam: Present: normal inspection, full ROM. Absent: tenderness Respiratory exam: Present: normal lung sounds bilaterally. Absent: respiratory distress, wheezes, rales, rhonchi, stridor Cardiovascular Exam: Present: regular rate, normal rhythm, normal heart sounds. Absent: systolic murmur, diastolic murmur, rubs, gallop GI/Abdominal exam: Present: soft. Absent: distended, tenderness, guarding, rebound, rigid, mass Extremities exam: Present: normal inspection, normal capillary refill. Absent: pedal edema, calf tenderness Back exam: Present: normal inspection. Absent: CVA tenderness (R), CVA tenderness (L), vertebral tenderness Neurological exam: Present: alert, oriented X3, CN II-XII intact. Absent: motor sensory deficit Skin exam: Present: warm, dry, intact, normal color. Absent: rash Course Vital Signs 06/27/20 06/27/20 06/27/20 02:56 03:30 05:00 Temperature 98.0 F Pulse Rate 76 89 92 Respiratory 16 16 16 Rate Blood Pressure 97/69 90/63 95/61 O2 Sat by Pulse 99 95 93 L Oximetry 06/27/20 06/27/20 06:00 06:30 Temperature Pulse Rate 80 88 Respiratory 16 16 Rate Blood Pressure 104/64 98/66 O2 Sat by Pulse 95 Oximetry EKG Findings - EKG Results: EKG: interpreted by GIOVANY, sinus rhythm (Rate 78 bpm), normal axis, normal ST/T - [place]ocks, [place], Hypertrophy, ST Abn: Repolarization changes or abnormalities: Q-T interval prolongation Medical Decision Making - Medical Decision Making This patient is a 49-year-old woman who presents to have evaluation after a syncopal episode. The patient had gotten up shortly after she felt herself becoming lightheaded and then passed out. She did fall and strike her head. She did not have any chest pain dyspnea diaphoresis or palpitations. Workup does reveal mild elevation of transaminases and after discussion with patient and his felt this probably due to alcohol use. Patient is counseled in this and also to have follow-up testing of the transaminases. - Lab Data Result diagrams: 06/27/20 04:45 06/27/20 04:45 Lab Results 06/27/20 06/27/20 06/27/20 Range/Units 04:45 04:45 04:45 WBC 8.1 (3.8-10.6) k/uL RBC 4.52 (3.80-5.40) m/uL Hgb 15.7 (11.4-16.0) gm/dL Hct 48.2 H (34.0-46.0) % MCV 106.8 H (80.0-100.0) fL MCH 34.7 (25.0-35.0) pg MCHC 32.5 (31.0-37.0) g/dL RDW 13.5 (11.5-15.5) % Plt Count 248 (150-450) k/uL Neutrophils % 78 % Lymphocytes % 17 % Monocytes % 4 % Eosinophils % 1 % Basophils % 0 % Neutrophils # 6.3 (1.3-7.7) k/uL Lymphocytes # 1.3 (1.0-4.8) k/uL Monocytes # 0.3 (0-1.0) k/uL Eosinophils # 0.1 (0-0.7) k/uL Basophils # 0.0 (0-0.2) k/uL Macrocytosis Moderate PT 9.6 (9.0-12.0) sec INR 0.9 (<1.2) APTT 23.2 (22.0-30.0) sec Sodium 137 (137-145) mmol/L Potassium 3.9 (3.5-5.1) mmol/L Chloride 100 (98-107) mmol/L Carbon Dioxide 24 (22-30) mmol/L Anion Gap 13 mmol/L BUN 16 (7-17) mg/dL Creatinine 1.23 H (0.52-1.04) mg/dL Est GFR (CKD-EPI)AfAm 59 (>60 ml/min/1.73 sqM) Est GFR (CKD-EPI)NonAf 52 (>60 ml/min/1.73 sqM) Glucose 101 H (74-99) mg/dL Calcium 10.1 (8.4-10.2) mg/dL Magnesium 1.9 (1.6-2.3) mg/dL Total Bilirubin 0.8 (0.2-1.3) mg/dL AST 372 H (14-36) U/L ALT 137 H (4-34) U/L Alkaline Phosphatase 104 (38-126) U/L Troponin I (0.000-0.034) ng/mL Total Protein 8.5 H (6.3-8.2) g/dL Albumin 5.1 H (3.5-5.0) g/dL Serum Alcohol 165 mg/dL 06/27/20 Range/Units 04:45 WBC (3.8-10.6) k/uL RBC (3.80-5.40) m/uL Hgb (11.4-16.0) gm/dL Hct (34.0-46.0) % MCV (80.0-100.0) fL MCH (25.0-35.0) pg MCHC (31.0-37.0) g/dL RDW (11.5-15.5) % Plt Count (150-450) k/uL Neutrophils % % Lymphocytes % % Monocytes % % Eosinophils % % Basophils % % Neutrophils # (1.3-7.7) k/uL Lymphocytes # (1.0-4.8) k/uL Monocytes # (0-1.0) k/uL Eosinophils # (0-0.7) k/uL Basophils # (0-0.2) k/uL Macrocytosis PT (9.0-12.0) sec INR (<1.2) APTT (22.0-30.0) sec Sodium (137-145) mmol/L Potassium (3.5-5.1) mmol/L Chloride (98-107) mmol/L Carbon Dioxide (22-30) mmol/L Anion Gap mmol/L BUN (7-17) mg/dL Creatinine (0.52-1.04) mg/dL Est GFR (CKD-EPI)AfAm (>60 ml/min/1.73 sqM) Est GFR (CKD-EPI)NonAf (>60 ml/min/1.73 sqM) Glucose (74-99) mg/dL Calcium (8.4-10.2) mg/dL Magnesium (1.6-2.3) mg/dL Total Bilirubin (0.2-1.3) mg/dL AST (14-36) U/L ALT (4-34) U/L Alkaline Phosphatase (38-126) U/L Troponin I <0.012 (0.000-0.034) ng/mL Total Protein (6.3-8.2) g/dL Albumin (3.5-5.0) g/dL Serum Alcohol mg/dL Disposition Clinical Impression: Elevated liver transaminase level, Head injury, Alcohol intoxication, Syncope Disposition: HOME SELF-CARE Condition: Good Instructions (If sedation given, give patient instructions): Syncope (ED) Is patient prescribed a controlled substance at d/c from ED?: No Referrals: Nonstaff,Physician [Primary Care Provider] - 1-2 days
[2020-06-27 07:27] VITALS: BP 108/69; PULSE 90; RESP 18; TEMP 98.8
== END 2020-06-27 07:45 | disposition home or self-care (01) ==
LOC: EC 02:53
DX: S00.03XA Contusion of scalp, initial encounter (principal); F10.129 Alcohol abuse with intoxication, unspecified; R74.01 Elevation of levels of liver transaminase levels; F17.200 Nicotine dependence, unspecified, uncomplicated; I10 Essential (primary) hypertension; Z79.899 Other long term (current) drug therapy; Z88.1 Allergy status to other antibiotic agents; Z88.2 Allergy status to sulfonamides; W18.30XA Fall on same level, unspecified, initial encounter; Y90.6 Blood alcohol level of 120-199 mg/100 ml
CPT/HCPCS: 99285 ×2; 96374 ×2; 96361 ×3; 36415; 93005; 80053; 83735; 84484; 85025; 85610; 85730; 80320; 71046; 72125; 70450; J2405